=== PATIENT | female | born 1945 | race Caucasian/White ===

== ENCOUNTER → 2019-12-23 15:26 | Outpatient (BNVA) | payer MEDICARE, SELFPAY | PROVIDERS: PCP Nurse Practitioner Family; Referring Provider Nurse Practitioner Family; Visit Provider Hospitalist | DX: J45.40 Moderate persistent asthma, uncomplicated (principal); G47.33 Obstructive sleep apnea (adult) (pediatric); R91.8 Other nonspecific abnormal finding of lung field; Z99.89 Dependence on other enabling machines and devices | CPT/HCPCS: 99214 ==

== ENCOUNTER 2020-03-06 13:05 | Outpatient (REF) | payer MEDICARE, SELFPAY ==
--- NOTE | 2020-03-06 13:09 | CT_ITS ---
EXAMINATION: CT CHEST WITHOUT CONTRAST CLINICAL INFORMATION: Small pulmonary nodules and tree-in-bud appearance. COMPARISON: CT chest 02/25/2019. TECHNIQUE: Multidetector volumetric CT imaging of the chest was done. Axial MIP volume rendering provided. Sagittal and coronal reformatted images were obtained. This CT examination was performed using dose optimization techniques as appropriate, variously including the following: *Automated exposure control *Adjustment of mA and/or kV according to patient size (this includes techniques or standardized protocols for targeted exams where dose is matched to indication/reason for exam; i.e. extremities or head) *Use of iterative reconstruction technique DLP: 158 mGy-cm. FINDINGS: COLOR CORRECTOR: Unremarkable. LUNGS: The lungs are well expanded with patchy reticular interstitial opacity right lung apex with mild focal bronchiectasis, has progressed since the last study. The tree-in-bud appearance has also progressed and now involves the lateral and the anterior segments of the right upper lobe. Previously visualized small nodules in the left upper lobe are intermingled with a band-like large density in the left upper lobe which is also progressed from the previous exam. There are several ill-defined confluent fluffy nodules right lower lobe adjacent to the major fissure measuring 7 mm on image 28/4 focal atelectasis with bronchiectasis and ill-defined nodules seen in the right middle lobe on axial image 30/4. Atelectatic changes also seen in the lingula and anterior basal segment left lower lobe. There is new 5 mm nodule left upper lobe axial image 19/4. MEDIASTINUM: Central trachea and the bronchi widely patent. The heart size and the great vessels are normal caliber. Atherosclerotic calcification of coronary arteries and aortic arch. There are small shotty lymph nodes in the mediastinum. No pericardial effusion seen. PLEURA: There is no pleural effusion. No pleural mass or thickening. AXILLA: No lymphadenopathy. UPPER ABDOMEN: Visualized liver, spleen, gallbladder, bilateral adrenal glands and the kidneys are unremarkable. OSSEOUS STRUCTURES: There is moderate spondylosis no lytic or sclerotic process seen. CT/CT chest wo con IMPRESSION: Interval progression of right upper lobe tree-in-bud appearance and mild bronchiectasis into a larger coalescent band-like density or infiltrate extending to the apex and posterior pleura. Similar findings of progression are seen in the left upper lobe with band-like atelectasis. There are new ill-defined fluffy nodules in the right lower lobe and bronchiectasis with band-like atelectasis and ill-defined nodules in the right middle lobe. There is lingular atelectasis with mild air bronchogram. Overall, there is progression of inflammatory or infectious process. No pleural effusion or abnormal-sized mediastinal or axillary lymph nodes. There are coronary artery calcifications present.
== END 2020-03-06 13:06 | disposition home or self-care (01) ==
LOC: HO.CT 13:05
PROVIDERS: Visit Provider Hospitalist
DX: R91.8 Other nonspecific abnormal finding of lung field (principal)
CPT/HCPCS: 71250

== ENCOUNTER → 2020-03-24 12:57 | Outpatient (BNVA) | payer MEDICARE, SELFPAY | PROVIDERS: Visit Provider Hospitalist | DX: J47.9 Bronchiectasis, uncomplicated (principal); R91.8 Other nonspecific abnormal finding of lung field; J45.40 Moderate persistent asthma, uncomplicated; G47.33 Obstructive sleep apnea (adult) (pediatric); Z99.89 Dependence on other enabling machines and devices | CPT/HCPCS: 99212 ==

== ENCOUNTER 2020-04-26 11:13 | Outpatient (REF) | payer MEDICARE, SELFPAY ==
[2020-04-26 12:11] LABS: MANUAL DIFF FLAG NO
[2020-04-26 12:19] LABS: Basophils Absolute Auto 0.1 X10*3/uL (0.0-0.2); Basophils Percent Auto 0.3 % (0-2); Eosinophils Absolute Auto 0.2 X10*3/uL (0.0-0.4); Eosinophils Percent Auto 1.3 % (0-4); Hematocrit 37.8 % (37-47); Hemoglobin 12.2 g/dl (12.0-16.0); Imm Gran Abs Auto 0.08 X10*3/uL (0.00-0.03); Imm Gran Pct Auto 0.6 % (0.0-0.4); Lymphocytes Absolute Auto 3.6 X10*3/uL (1.2-4.9); Lymphocytes Percent Auto 24.8 % (20-40); Mean Corpuscular HGB Conc 32.3 g/dl (31.0-35.0); Mean Corpuscular Hemoglobin 28.2 pg (27.0-33.0); Mean Corpuscular Volume 87.5 fL (80-98); Monocytes Percent Auto 6.6 % (2-11); Neutrophils Absolute Auto 9.6 X10*3/uL (2.0-8.3); Neutrophils Percent Auto 66.4 % (45-73); Platelet Count 229 X10*3/uL (160-400); Red Blood Count 4.32 X10*6/uL (4.20-5.50); Red Cell Distribution Width 16.2 % (11.0-16.0); White Blood Count 14.5 X10*3/uL (4.8-10.8)
[2020-04-26 13:09] LABS: SARS COV2 IgG Negative (Negative)
[2020-04-26 13:31] LABS: Erythrocyte Sedimentation Rate 34 MM/HR (0-20)
[2020-04-27 13:42] LABS: Anti Nuclear Antibody Screen NEGATIVE (NEGATIVE); IgA 184 mg/dL (70-320); IgG 1397 mg/dL (600-1540); IgM 186 mg/dL (50-300)
[2020-05-01 14:16] LABS: Asperg fumigatus Precip Abs NEGATIVE (NEGATIVE); Micropoly faeni Abs NEGATIVE (NEGATIVE); Pigeon serum Abs NEGATIVE (NEGATIVE); Saccharo pora viridis Abs NEGATIVE (NEGATIVE); Thermo candidus Abs NEGATIVE (NEGATIVE); Thermoa vulgaris #1 NEGATIVE (NEGATIVE)
== END 2020-04-26 11:14 | disposition home or self-care (01) ==
LOC: HO.LAB 11:13
PROVIDERS: Visit Provider Hospitalist
DX: J47.9 Bronchiectasis, uncomplicated (principal); Z20.822 Contact with and (suspected) exposure to COVID-19
CPT/HCPCS: 36415; 82784; 82785; 85025; 85652; 86003; 86038; 86039; 86331; 86606; 86609; 86769

== ENCOUNTER 2020-05-03 07:13 | Day surgery (SDC) | payer MEDICARE, SELFPAY ==
[2020-04-27 13:13] VITALS: BMI 30.2
--- NOTE | 2020-05-01 14:54 | P.CONAN_ITS ---
Documented by User: Rachel Sadler 05/02/20 12:02 HPI - Anesthesia Eval Consult details Narrative: 75yo F for Bronchoscopy Fiberoptic PMFSH Active Problems Active Problems: All Active Problems (Updated 04/27/20 @ 14:45 by Sonja Pierson) Bronchiectasis (Acute) Pulmonary nodules (Acute) Asthma (Acute) SANDRA on CPAP (Acute) Past Medical History Medical History Asthma Back pain Bronchiectasis COVID-19 Diabetes High cholesterol History of anxiety History of depression History of stomach cancer Hx of deep venous thrombosis Hx of gastroesophageal reflux (GERD) Hypertension Hypothyroid Iron deficiency anemia SANDRA on CPAP Osteopenia Pulmonary nodules Family History Family History (Updated 12/23/19 @ 21:54 by Elliot Hammer MD) Father No problems noted. Surgical History Surgical History History of partial gastrectomy History of thyroid surgery Hx of colonoscopy S/P laparoscopic-assisted sigmoidectomy Social History Social History (Updated 12/23/19 @ 15:47 by Gloria Kim MA) Are you a primary childcare center administrator to a significant other at home: No Do you presently have visiting nurse or other home services: No Smoking Status: Former smoker Smoking Quit Date: many years ago Use of substances other than those prescribed or required for medical reasons: No Have you been hit, kicked, punched, or otherwise hurt by someone within the past year? If so, by whom?: No Advance Directives: No Advance Directives Information Provided: No Advance Directives on File: No Recently lost weight without trying: No Meds Allergies Allergy/AdvReac Type Severity Reaction Status Date / Time aspirin Allergy Mild Hives Verified 05/03/20 07:39 oxycodone Allergy Mild Rash GI Verified 05/03/20 07:39 Upset levofloxacin [From Levaquin] Allergy rash, Verified 05/03/20 07:39 malaise, nausea- per H&P sertraline Allergy N/V Verified 05/03/20 07:39 Diarrhea- per H&P Latex Agent Allergy Mild Hives Uncoded 04/27/20 12:58 Sulfa Drugs Allergy Mild Upset Uncoded 04/27/20 12:58 Stomach Home Medications Medication Instructions Recorded Confirmed Last Taken Type acetaminophen 325 mg tablet [id number] mg PO Q4-6H PRN 12/23/19 04/27/20 Unknown History albuterol sulfate 2.5 mg INHALATION Q6H PRN 12/23/19 04/27/20 Unknown History albuterol sulfate 90 mcg/actuation 2 puff INHALATION QID PRN 12/23/19 04/27/20 05/03/20 06:00 History aerosol inhaler amlodipine 10 mg tablet 10 mg PO DAILY 12/23/19 04/27/20 05/03/20 06:00 History blood sugar diagnostic #10 ea 12/23/19 03/24/20 Unknown History brimonidine 0.2 % eye drops 1 drp OPHTHALMIC (EYE) ml 12/23/19 03/24/20 Unknown History cyanocobalamin (vitamin B-12) 500 mcg IM Q4W 12/23/19 04/27/20 Unknown History 1,000 mcg/mL injection solution ferrous sulfate 325 mg (65 mg 325 mg PO BID 12/23/19 04/27/20 Unknown History iron) tablet lancets 28 gauge #100 ea 12/23/19 03/24/20 Unknown History lanolin alcohols-mineral 1 applic TOPICAL BID 12/23/19 04/27/20 Unknown History oil-w.petrolatum-ceresin topical cream latanoprostene bunod 0.024 % eye 1 drp OPHTHALMIC (EYE) DAILY 12/23/19 04/27/20 Unknown History drops levothyroxine 112 mcg tablet 112 mcg PO DAILY 12/23/19 04/27/20 05/03/20 06:00 History lisinopril 40 mg tablet 40 mg PO DAILY 12/23/19 04/27/20 Unknown History meclizine 12.5 mg tablet 12.5 mg PO DAILY 12/23/19 04/27/20 Unknown History melatonin 5 mg tablet 10 mg PO BEDTIME 12/23/19 04/27/20 Unknown History ondansetron 8 mg disintegrating 0 mg PO 12/23/19 03/24/20 Unknown History tablet pantoprazole 40 mg tablet,delayed 40 mg PO BID 12/23/19 04/27/20 Unknown History release quetiapine 100 mg tablet 100 mg PO BEDTIME 12/23/19 04/27/20 Unknown History rosuvastatin 5 mg tablet 5 mg PO DAILY 12/23/19 04/27/20 Unknown History losartan 25 mg tablet 25 mg PO DAILY 03/24/20 04/27/20 05/03/20 06:00 History ascorbic acid (vitamin C) [Vitamin 1 tab PO BID 04/27/20 04/27/20 Unknown History C] calcium carbonate-vitamin D3 1 tab PO DAILY 04/27/20 04/27/20 Unknown History [Calcium 600 + D(3)] Exam Exam Date and Time: May 01, 2020 1454 Height,Weight and Vital Signs: Height 5 ft 2 in Weight 74.843 kg Pertinent Lab Results Pertinent Lab Results: Laboratory Tests 04/26/20 11:55 WBC 14.5 H Hgb 12.2 Hct 37.8 Plt Count 229 Narrative Narrative: CT chest wo con 02/2020 IMPRESSION: Interval progression of right upper lobe tree-in-bud appearance and mild bronchiectasis into a larger coalescent band-like density or infiltrate extending to the apex and posterior pleura. Similar findings of progression are seen in the left upper lobe with band-like atelectasis. There are new ill-defined fluffy nodules in the right lower lobe and bronchiectasis with band-like atelectasis and ill-defined nodules in the right middle lobe. There is lingular atelectasis with mild air bronchogram. Overall, there is progression of inflammatory or infectious process. No pleural effusion or abnormal-sized mediastinal or axillary lymph nodes. There are coronary artery calcifications present. Assessment and Plan Assessment Anesthesia Assessment: Chart Reviewed Documented by User: Jill Cage 05/03/20 08:54 [facility] Past Medical History Medical History Asthma Back pain Bronchiectasis COVID-19 Diabetes High cholesterol History of anxiety History of depression History of stomach cancer Hx of deep venous thrombosis Hx of gastroesophageal reflux (GERD) Hypertension Hypothyroid Iron deficiency anemia SANDRA on CPAP Osteopenia Pulmonary nodules Family History Family History (Updated 12/23/19 @ 21:54 by Elliot Hammer MD) Father No problems noted. Surgical History Surgical History History of partial gastrectomy History of thyroid surgery Hx of colonoscopy S/P laparoscopic-assisted sigmoidectomy Social History Social History (Updated 12/23/19 @ 15:47 by Gloria Kim MA) Are you a primary childcare center administrator to a significant other at home: No Do you presently have visiting nurse or other home services: No Smoking Status: Former smoker Smoking Quit Date: many years ago Use of substances other than those prescribed or required for medical reasons: No Have you been hit, kicked, punched, or otherwise hurt by someone within the past year? If so, by whom?: No Advance Directives: No Advance Directives Information Provided: No Advance Directives on File: No Recently lost weight without trying: No Meds Allergies Allergy/AdvReac Type Severity Reaction Status Date / Time aspirin Allergy Mild Hives Verified 05/03/20 07:39 oxycodone Allergy Mild Rash GI Verified 05/03/20 07:39 Upset levofloxacin [From Levaquin] Allergy rash, Verified 05/03/20 07:39 malaise, nausea- per H&P sertraline Allergy N/V Verified 05/03/20 07:39 Diarrhea- per H&P Latex Agent Allergy Mild Hives Uncoded 04/27/20 12:58 Sulfa Drugs Allergy Mild Upset Uncoded 04/27/20 12:58 Stomach Home Medications Medication Instructions Recorded Confirmed Last Taken Type acetaminophen 325 mg tablet [id number] mg PO Q4-6H PRN 12/23/19 04/27/20 Unknown History albuterol sulfate 2.5 mg INHALATION Q6H PRN 12/23/19 04/27/20 Unknown History albuterol sulfate 90 mcg/actuation 2 puff INHALATION QID PRN 12/23/19 04/27/20 05/03/20 06:00 History aerosol inhaler amlodipine 10 mg tablet 10 mg PO DAILY 12/23/19 04/27/20 05/03/20 06:00 History blood sugar diagnostic #10 ea 12/23/19 03/24/20 Unknown History brimonidine 0.2 % eye drops 1 drp OPHTHALMIC (EYE) ml 12/23/19 03/24/20 Unknown History cyanocobalamin (vitamin B-12) 500 mcg IM Q4W 12/23/19 04/27/20 Unknown History 1,000 mcg/mL injection solution ferrous sulfate 325 mg (65 mg 325 mg PO BID 12/23/19 04/27/20 Unknown History iron) tablet lancets 28 gauge #100 ea 12/23/19 03/24/20 Unknown History lanolin alcohols-mineral 1 applic TOPICAL BID 12/23/19 04/27/20 Unknown History oil-w.petrolatum-ceresin topical cream latanoprostene bunod 0.024 % eye 1 drp OPHTHALMIC (EYE) DAILY 12/23/19 04/27/20 Unknown History drops levothyroxine 112 mcg tablet 112 mcg PO DAILY 12/23/19 04/27/20 05/03/20 06:00 History lisinopril 40 mg tablet 40 mg PO DAILY 12/23/19 04/27/20 Unknown History meclizine 12.5 mg tablet 12.5 mg PO DAILY 12/23/19 04/27/20 Unknown History melatonin 5 mg tablet 10 mg PO BEDTIME 12/23/19 04/27/20 Unknown History ondansetron 8 mg disintegrating 0 mg PO 12/23/19 03/24/20 Unknown History tablet pantoprazole 40 mg tablet,delayed 40 mg PO BID 12/23/19 04/27/20 Unknown History release quetiapine 100 mg tablet 100 mg PO BEDTIME 12/23/19 04/27/20 Unknown History rosuvastatin 5 mg tablet 5 mg PO DAILY 12/23/19 04/27/20 Unknown History losartan 25 mg tablet 25 mg PO DAILY 03/24/20 04/27/20 05/03/20 06:00 History ascorbic acid (vitamin C) [Vitamin 1 tab PO BID 04/27/20 04/27/20 Unknown History C] calcium carbonate-vitamin D3 1 tab PO DAILY 04/27/20 04/27/20 Unknown History [Calcium 600 + D(3)] Exam Airway Mallampati Class: II TM Dist: >3cm Neck ROM: Full Heart: RRR Lungs: CTAcBL Assessment and Plan Assessment Anesthesia Assessment: Anesthesia Plan Discussed and Chart Reviewed Final Anesthetic Review NPO: Yes (Sip water with meds) ASA Class: III Final Preanesthetic Review: No Changes in Pt Med Stat and Consent Obtained/Reviewed Patient Risk: Intermediate Procedure Risk: Intermediate Anesthetic Plan Disposition: Standard PACU
[2020-05-03 07:55] LABS: Glucose, Whole Blood 83 mg/dL (60-115)
[2020-05-03 07:59] VITALS: BP 165/69; PULSE 72; RESP 18; TEMP 36.6; O2SAT 98
[2020-05-03] MEDS: Lactated Ringers 1,000 ML 100 ML IVCONT (08:23)
--- NOTE | 2020-05-03 08:34 | MHC.SHP ---
Pre-Procedural Eval Section A The History & Physical has been completed within 30 days and I have reviewed it.: Yes Section B Chief Complaint: bronchiectasis Relevant Family History (Specify if Yes): No Relevant Social History: None Present Medications: see Short Stay Collaborative assessment Medical History: No relevant PMH History of Previous Operations: No relevant previous surgery Allergies: Allergies Allergy/AdvReac Type Severity Reaction Status Date / Time aspirin Allergy Mild Hives Verified 05/03/20 07:39 oxycodone Allergy Mild Rash GI Verified 05/03/20 07:39 Upset levofloxacin [From Levaquin] Allergy rash, Verified 05/03/20 07:39 malaise, nausea- per H&P sertraline Allergy N/V Verified 05/03/20 07:39 Diarrhea- per H&P Latex Agent Allergy Mild Hives Uncoded 04/27/20 12:58 Sulfa Drugs Allergy Mild Upset Uncoded 04/27/20 12:58 Stomach Review of Systems Sugical H&P ROS: Negative: Constitution, Cardiovascular, Neurological, Psychiatric, Hem-Onc, Allergic/Immunologic, Gastrointestinal, Genitourinary and Musculoskeletal and Yes, Specify: Respiratory (cough) Exam Surgical H&P Exam: Normal: HEENT, Normal: Heart, Normal: Lungs, Normal: Extremities, Normal: Abdomen and Normal: Skin Plan I have reviewed the history and physical and performed a pertinent physical examination on my patient. No changes have occurred unless specified.
[2020-05-03 09:25] VITALS: BP 107/52; PULSE 71; RESP 16; TEMP 36.9; O2SAT 97
--- NOTE | 2020-05-03 09:25 | PM.OP ---
Brief Operative Note Date of Service: 05/03/20 Pre-op diagnosis: Bronchiectasis, pulmonary nodules Post-op diagnosis: same Procedure: Bronchoscopy with brushings and washings Surgeon: Elliot Hammer MD Anesthesia: MAC Estimated blood loss (mL): 2 Condition: stable Disposition: same day
[2020-05-03 09:40] VITALS: BP 161/69; PULSE 68; RESP 20; O2SAT 96
[2020-05-03 09:55] VITALS: BP 147/54; PULSE 66; RESP 20; TEMP 36.9; O2SAT 97
--- NOTE | 2020-05-03 10:23 | OP_ITS ---
SURGEON: Elliot Hammer MD PREOPERATIVE DIAGNOSIS: POSTOPERATIVE DIAGNOSIS: PROCEDURE PERFORMED: ESTIMATED BLOOD LOSS: COMPLICATIONS: ANESTHESIA: MAC. ASSISTANTS: SPECIMENS: ASA CLASSIFICATION: 3. PREOPERATIVE DIAGNOSES: Bronchiectasis and pulmonary nodules. POSTOPERATIVE DIAGNOSES: Bronchiectasis and pulmonary nodules. DESCRIPTION OF PROCEDURE: After the patient was adequately sedated, the flexible digital bronchoscope was inserted over the oral airway to the level of the larynx. The vocal cords moved symmetrically to the midline. There was some evidence of microaspiration. No vocal cord lesions noted. After instilling additional lidocaine, the bronchoscope was navigated to the level of the trachea. 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 The patient was not able to follow instructions or cough, but based on the appearance of the plateauing of the tracheal cartilage rings, suggesting about 25% extrinsic obstruction. After instilling additional lidocaine, the bronchoscope was navigated to the entire tracheobronchial tree. There was evidence of moderate amount of purulent secretions primarily in the central airways, right upper lobe, right middle lobe, primarily to lesser degree in the other airways. There was also some evidence of friable mucosa primarily in the right middle lobe and also in the left upper lobe area. No endobronchial lesions or masses noted. Bronchial brushings were collected from the right upper lobe for microbiology and for cytology from the right middle lobe. Bronchial washings were collected throughout bilateral washings for both cytology and microbiology. After the therapeutic suctioning of the airways and no evidence of any active bleeding, the bronchoscope was then removed. The total endoscopic time approximately 12 minutes. The patient tolerated the procedure well. Vital signs were stable throughout the procedure. INTERPRETATION: Successful bronchoscopy with cytologic and microscopic brushings and bilateral washings. MD LYN Peña/NETTE / [id number]
== END 2020-05-03 10:35 | disposition home or self-care (01) ==
PROVIDERS: Visit Provider Hospitalist
PROC: 0BJ08ZZ Inspection of Tracheobronchial Tree, Via Natural or Artificial Opening Endoscopic (ICD-10-PCS; CPT 31622; principal; 2020-05-03 08:30)
DX: J47.9 Bronchiectasis, uncomplicated (principal); R91.8 Other nonspecific abnormal finding of lung field; J39.8 Other specified diseases of upper respiratory tract; G47.33 Obstructive sleep apnea (adult) (pediatric); J45.909 Unspecified asthma, uncomplicated; I10 Essential (primary) hypertension; E11.9 Type 2 diabetes mellitus without complications; D50.9 Iron deficiency anemia, unspecified; Z85.028 Personal history of other malignant neoplasm of stomach; Z90.3 Acquired absence of stomach [part of]; Z90.49 Acquired absence of other specified parts of digestive tract; Z86.718 Personal history of other venous thrombosis and embolism; Z79.51 Long term (current) use of inhaled steroids; Z79.899 Other long term (current) drug therapy; Z99.89 Dependence on other enabling machines and devices; Z88.2 Allergy status to sulfonamides; Z88.8 Allergy status to other drugs, medicaments and biological substances; Z91.040 Latex allergy status
CPT/HCPCS: 31623; 31645; 82947; 87071; 87077; 87102; 87116; 87186; 87205; 88112; 88305; J0171; J2250

== ENCOUNTER → 2020-05-11 13:18 | Outpatient (BNVA) | payer MEDICARE, SELFPAY | PROVIDERS: PCP Internal Medicine; Visit Provider Hospitalist | DX: J47.0 Bronchiectasis with acute lower respiratory infection (principal); R91.8 Other nonspecific abnormal finding of lung field; J45.40 Moderate persistent asthma, uncomplicated; G47.33 Obstructive sleep apnea (adult) (pediatric); Z99.89 Dependence on other enabling machines and devices; Z87.891 Personal history of nicotine dependence; Z79.51 Long term (current) use of inhaled steroids | CPT/HCPCS: 99212 ==

== ENCOUNTER → 2020-05-17 08:28 | Outpatient (BNVA) | payer MEDICARE, SELFPAY | PROVIDERS: PCP Internal Medicine; Visit Provider Hospitalist | DX: R42 Dizziness and giddiness (principal); J47.0 Bronchiectasis with acute lower respiratory infection; R91.8 Other nonspecific abnormal finding of lung field; J45.40 Moderate persistent asthma, uncomplicated; G47.33 Obstructive sleep apnea (adult) (pediatric); Z99.89 Dependence on other enabling machines and devices | CPT/HCPCS: 99212 ==

== ENCOUNTER → 2020-07-24 13:58 | Outpatient (BNVA) | payer MEDICARE, SELFPAY | PROVIDERS: PCP Internal Medicine; Visit Provider Hospitalist | DX: J47.0 Bronchiectasis with acute lower respiratory infection (principal); R91.8 Other nonspecific abnormal finding of lung field; J45.40 Moderate persistent asthma, uncomplicated; G47.33 Obstructive sleep apnea (adult) (pediatric); Z99.89 Dependence on other enabling machines and devices | CPT/HCPCS: 99212 ==

== ENCOUNTER → 2020-11-21 14:00 | Outpatient (BNVA) | payer MEDICARE, SELFPAY | PROVIDERS: PCP Internal Medicine; Visit Provider Hospitalist | DX: J47.0 Bronchiectasis with acute lower respiratory infection (principal); J45.40 Moderate persistent asthma, uncomplicated; R91.8 Other nonspecific abnormal finding of lung field; G47.33 Obstructive sleep apnea (adult) (pediatric); Z99.89 Dependence on other enabling machines and devices | CPT/HCPCS: 99212 ==

== ENCOUNTER 2021-01-30 13:31 | Outpatient (REF) | payer MEDICARE, SELFPAY ==
--- NOTE | ~2021-01-30 | CT_ITS ---
EXAMINATION: CT CHEST WITHOUT CONTRAST CLINICAL INFORMATION: Pulmonary nodule COMPARISON: 02/27/2020 and 02/25/2019 TECHNIQUE: Multidetector volumetric CT imaging of the chest was done. Axial MIP volume rendering provided. Sagittal and coronal reformatted images were obtained. This CT examination was performed using dose optimization techniques as appropriate, variously including the following: *Automated exposure control *Adjustment of mA and/or kV according to patient size (this includes techniques or standardized protocols for targeted exams where dose is matched to indication/reason for exam; i.e. extremities or head) *Use of iterative reconstruction technique DLP: 153 mGy-cm FINDINGS: LUNGS: Again seen are bronchiectatic changes within the middle lobe and lingula with scattered endobronchial secretions and accompanying subsegmental atelectasis. Again seen are scattered endobronchial secretions within the right upper lobe and right middle lobe appearing similar to the prior examination, with tree in bud nodularity evident within the lateral segment of the middle lobe. Slightly improved aeration within the anteromedial aspect of the middle lobe with new patchy opacity within the lateral segment of the middle lobe. A previous patchy opacity within lateral segment of the right lower lobe has resolved, however there is a new bronchocentric opacity within the central region of the right lower lobe. MEDIASTINUM: Normal heart size. No pericardial effusion. Triple vessel coronary calcifications. Mitral annular calcifications. No mediastinal or hilar adenopathy. PLEURA: There is no pleural effusion. No pleural mass or thickening. AXILLA: No lymphadenopathy. UPPER ABDOMEN: Unremarkable. OSSEOUS STRUCTURES: No acute or suspicious osseous abnormality. CT/CT chest wo con IMPRESSION: Again seen are chronic bronchiectatic changes and endobronchial secretions predominating within the middle lobe and lingula, with tree in bud nodularity present laterally within the middle lobe. There are associated waxing and waning patchy airspace opacities within the middle lobe and right lower lobe reflective of a chronic airway-based infectious process, such as nontuberculous mycobacterium. Overall, the extent of disease shows no significant interval progression since the prior exam.
== END 2021-01-30 13:32 | disposition home or self-care (01) ==
LOC: HO.CT 13:31
PROVIDERS: Visit Provider Hospitalist
DX: R91.8 Other nonspecific abnormal finding of lung field (principal); J47.9 Bronchiectasis, uncomplicated
CPT/HCPCS: 71250

== ENCOUNTER → 2021-02-22 13:46 | Outpatient (BNVA) | payer MEDICARE, SELFPAY | PROVIDERS: PCP Internal Medicine; Visit Provider Hospitalist | DX: J47.0 Bronchiectasis with acute lower respiratory infection (principal); R91.8 Other nonspecific abnormal finding of lung field; J45.40 Moderate persistent asthma, uncomplicated; G47.33 Obstructive sleep apnea (adult) (pediatric); Z99.89 Dependence on other enabling machines and devices | CPT/HCPCS: 99212 ==

== ENCOUNTER → 2021-05-17 13:41 | Outpatient (BNVA) | payer MEDICARE, SELFPAY | PROVIDERS: PCP Internal Medicine; Visit Provider Hospitalist | DX: J45.40 Moderate persistent asthma, uncomplicated (principal); R91.8 Other nonspecific abnormal finding of lung field; J47.0 Bronchiectasis with acute lower respiratory infection; G47.33 Obstructive sleep apnea (adult) (pediatric); Z99.89 Dependence on other enabling machines and devices | CPT/HCPCS: 99212 ==

== ENCOUNTER → 2021-08-16 13:41 | Outpatient (BNVA) | payer MEDICARE, SELFPAY | PROVIDERS: PCP Internal Medicine; Visit Provider Hospitalist | DX: J47.0 Bronchiectasis with acute lower respiratory infection (principal); R91.8 Other nonspecific abnormal finding of lung field; J45.40 Moderate persistent asthma, uncomplicated; G47.33 Obstructive sleep apnea (adult) (pediatric); Z79.899 Other long term (current) drug therapy; Z99.89 Dependence on other enabling machines and devices | CPT/HCPCS: 99212 ==

== ENCOUNTER → 2022-02-07 13:47 | Outpatient (BNVA) | payer OTHER, SELFPAY | PROVIDERS: PCP Internal Medicine; Visit Provider Hospitalist | DX: J45.40 Moderate persistent asthma, uncomplicated (principal); G47.33 Obstructive sleep apnea (adult) (pediatric); R91.8 Other nonspecific abnormal finding of lung field; J47.1 Bronchiectasis with (acute) exacerbation; Z99.89 Dependence on other enabling machines and devices | CPT/HCPCS: 99212 ==

== ENCOUNTER → 2022-05-14 13:23 | Outpatient (BNVA) | payer OTHER, SELFPAY | PROVIDERS: PCP Nurse Practitioner Family; Visit Provider Hospitalist | DX: J47.1 Bronchiectasis with (acute) exacerbation (principal); J45.40 Moderate persistent asthma, uncomplicated; R91.8 Other nonspecific abnormal finding of lung field; R00.1 Bradycardia, unspecified; G47.33 Obstructive sleep apnea (adult) (pediatric); Z99.89 Dependence on other enabling machines and devices | CPT/HCPCS: 99212 ==

== ENCOUNTER 2022-10-21 13:21 | Outpatient (AMB) | payer OTHER, SELFPAY ==
--- NOTE | 2022-10-21 13:25 | A.OFFVIS_ITS ---
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 Allergies aspirin Allergy (Mild, Verified 10/21/22 13:25) Hives oxycodone Allergy (Mild, Verified 10/21/22 13:25) Rash GI Upset levofloxacin [From Levaquin] Allergy (Verified 10/21/22 13:25) rash, malaise, nausea- per H&P sertraline Allergy (Verified 10/21/22 13:25) N/V Diarrhea- per H&P Latex Agent Allergy (Mild, Uncoded 10/21/22 13:25) Hives Sulfa Drugs Allergy (Mild, Uncoded 10/21/22 13:25) Upset Stomach HPI HPI Comments History of Present Illness Details The patient is a 77-year-old woman with a known history of pulmonary nodules, obstructive sleep apnea on CPAP in addition to having bariatric surgery. apparently since I saw her she did develop covid 19 infection and was admitted to [facility] initially back in July 21. she was then readmitted back on August 09 with again a positive covid tennis and significant GI symptoms. She did not require any oxygen. We did review her previous CT scan of the chest done here back in February 2019 demonstrating numerous pulmonary nodules along with some bronchiectatic changes in some areas of atelectasis. She continues to have a cough in addition to some shortness of breath. [id number] severity. No significant mucus production. At this point she needs to have a repeat CT scan of the chest. Will have her get 1 in 3 months with her follow-up. In regards to her CPAP the CPAP therapy continues to be Effective in beneficial. She does use her CPAP more than 4 hours a night. He uses a nasal mask. She does complaint of a dry mouth. We did prescribe her a chinstrap during the last visit but she did not know how to use it. Therefore she was instructed how to use it. She has some known bronchiectasis and her previous CT scan. We did talk about potentially consider bronchoscopy. She would like to hold off at this time. Will have blood work done to further address the bronchiectasis. In the meantime she continues use her CPAP. The CPAP therapy continues to be affecting beneficial. She does use it more than 4 hours a night. She still getting dryness of the mouth. Will try to request axis to rest med to try to adjust humidification. 05/17/2021 the patient is here for a pulmonary follow-up visit. Overall she is feeling better at this time. Apparently back in March she became sick likely with viral syndrome and developed significant wheezing. She did call our office and she was prescribed prednisone. However, her symptoms worsened and she had to go to the ER. She went to [facility]. There it was recommended that she be admitted to the hospital. However, the patient is reluctant. After her prolonged nebulized therapy and overall therapies in the year she did feel better was able to go home. Also to know her family tested positive for COVID around the same time. She tested a few times negative. Now she is back to her baseline. She continues on the Breo. She has a history of glaucoma, therefore no LAMA. She also has a nebulizer machine. She has not required at this time. In the meantime she continues use her CPAP. She did bring it in. her AHI is only 0.5. Her current APAP settings are adequate 08/09/2013. Therefore will continue the current settings. She does have a nasal mask and she tolerates it well. No significant leakage. The patient does have bronchiectasis. She has had a history of Pseudomonas in the past. She does have a flutter valve. At this point she does not have any mucus burden. She she still continue using the flutter valve couple times a day. 08/16/2021 the patient is here for a pulmonary follow-up visit. Overall the patient has been doing well with current respiratory therapy. She has not required any prednisone or even her rescue inhaler. She stays stable on her current inhaler, Breo and also does have her rescue inhaler that she has not required. She continues on the CPAP therapy. The therapy has been affecting beneficial. By mistake she did receive the wrong mask, F20 medium. However when she started using it she felt a lot better and therefore she prefers the full face mask at this time. I will submit a prescription to the [facility] with the new mask. She is also going to handle over her recent supplies for the nasal mask in order for her to continue doing right equipment. We also reviewed her most recent CT scan from January 2021 demonstrating bronchiectatic changes with tree-in-bud and some mucus plugging. Although no evidence of any significant nodular densities to follow-up. At this point will hold off on additional imaging studies unless she develops any worsening symptoms. 02/07/2022 the patient is here for a pulmonary follow-up visit. She has been complaining worsening productive cough and shortness of breath. He is not letting her sleep. Moderate severity. She tolerated going to the ER. But she that possibly she could wait to this appointment. Denies any fevers or chills. She already tested negative for COVID-19. She continues use her respiratory therapy. She has not been using her nebulizer. I did encourage her to do so in order to provide better mucus clearance. Her mucus she was able to cough up appears to be thick but not discolored at this time. Son likely to be Pseudomonas which she has had in the past. Although she is allergic to Levaquin anyway. Go ahead and treated for bronchiectasis exacerbation with azithromycin. She does have some wheezing so therefore she will need some prednisone as well. in the meantime she does continue to use her CPAP every night. Given that she is coughing the CPAP does give her some relief. She does use it for more than 4 hours a night. She has been getting supplies readily through her [facility]. 05/14/2022 the patient is here for a pulmonary follow-up visit. The patient overall is feeling better from a respiratory status. However, she went to the ER with elevated blood pressures. The patient was noted to have some cardiac strain. This was at [facility]. She was then placed on metoprolol. Seems that she is tolerating the metoprolol with her history of asthma. However in the office she was noted to have a low heart rate which was resting at 50 beats per minute. She states that she had been feeling dizzy lately. Yesterday she had checked her blood pressure and was 107/50. Therefore, I emphasized to her that she needs to call her professor of surgery regarding her current dose of metoprolol as the dose may have to be decreased to some degree. I also walker briefly in the office to make sure the heart rate did increase and it went from 50 beats per minute to about 59 the high as with activity. The patient was not dizzy during that ambulation. I did ask her to lock down all her vitals as she checks them especially if she is symptomatic so she has all those numbers for primary care and also her professor of surgery. Her she continues use the Breo inhaler. She is not using any long-acting muscarinic antagonist because of a history of glaucoma. She continues uses singular at nighttime. This medication she will continue. 10/21/2022 the patient is here for pulmonary follow-up visit. She is feeling well. Still having significant chest congestion and chest tightness. She did take some prednisone with some partial improvement. Denies any fevers or chills. She had some azithromycin available and she did take it and her cough did improve and the mucus burden is less. The patient's mucus now is clearing up. She does have a history of Pseudomonas however. I did give her specimen cup. She will go back on the azithromycin 3 times a week. She her EKG that she just had demonstrated a normal QT interval which is reassuring. If the patient has some sputum or chest congestion worsens that she is to provide a sputum sample. The patient should also have a chest x-ray done since she has not had 1 in some time. She will continue with current respiratory therapy. The meantime the patient has been using the CPAP. The CPAP therapy has been affecting beneficial. She does use it for more than 4 hours a night. She has been having some sinus pressure and headaches while using the nasal mask. I did recommend she can switch over to a fullface mask, F 20. [facility] Medical History (Updated 05/14/22 @ 19:34 by Elliot Hammer MD) Asthma Back pain Bradycardia Bronchiectasis COVID-19 Diabetes Dizziness Glaucoma High cholesterol History of anxiety History of depression History of stomach cancer Hx of deep venous thrombosis Hx of gastroesophageal reflux (GERD) Hypertension Hypothyroid Iron deficiency anemia SANDRA on CPAP Osteopenia Pulmonary nodules Surgical History History of partial gastrectomy History of thyroid surgery Hx of colonoscopy S/P laparoscopic-assisted sigmoidectomy Family History (Updated 12/23/19 @ 21:54 by Elliot Hammer MD) Father No problems noted. Social History (Updated 11/21/20 @ 14:14 by ADRIEL Watson) Are you a primary ocular care aide to a significant other at home: No Do you presently have visiting nurse or other home services: No Patient Tobacco Use Status: Former Tobacco user Tobacco use type: Cigarette Years Smoked: 15 years Review of Systems Const Reports fatigue, Denies fever(s) and Denies night sweats ENT Denies change in voice, Reports dizziness, Denies lip swelling, Denies mouth pain, Reports nasal congestion, Reports nasal discharge, Reports sore throat and Denies tongue swelling Card Denies chest pain Resp Reports change in phlegm color, Reports chest congestion, Reports cough, Denies hemoptysis, Denies excessive phlegm production, Denies pain on inspiration, Denies pain with cough and Reports wheezing GI Denies abdominal pain Musc Denies no additional complaints Neuro Denies Neuro-related abnormal movements and Reports dizziness Psych Denies no additional complaints Endo Reports fatigue Harmeet/Lymph Denies easy bleeding and Denies lymphadenopathy Aller/Immun Denies lip swelling, Denies tongue swelling and Reports wheezing Physical Exam Vital Signs: Last Vital Signs Pulse 53 10/21/22 13:27 Pulse Ox 99 10/21/22 13:27 Oxygen Delivery Method Room Air 10/21/22 13:27 BMI result Body Mass Index 32.2 Const General: alert Neck Neck: Yes normal visual inspection, Yes full ROM and Yes no lymphadenopathy Chest Chest palpation & inspection: normal inspection of the chest Resp Auscultation: no rhonchi, no wheezes and diminished lung sounds Cardio Rate: regular rate Rhythm: regular rhythm Heart sounds: Murmur heart sound present GI Palpation (GI): Soft to palpation and nontender Auscultation: normal bowel sounds Skin General skin exam: rashes and/or lesions noted Assessment & Plan Assessment & Plan (1) Bronchiectasis: Code(s): J47.9 - Bronchiectasis, uncomplicated Qualifiers: Bronchiectasis type: with acute exacerbation Qualified Code(s): J47.1 - Bronchiectasis with (acute) exacerbation (2) Pulmonary nodules: Code(s): R91.8 - Other nonspecific abnormal finding of lung field (3) Asthma: Code(s): J45.909 - Unspecified asthma, uncomplicated Qualifiers: Asthma complication type: uncomplicated Asthma persistence: persistent Asthma severity: moderate Qualified Code(s): J45.40 - Moderate persistent asthma, uncomplicated (4) ASNDRA on CPAP: Code(s): G47.33 - Obstructive sleep apnea (adult) (pediatric); Z99.89 - Dependence on other enabling machines and devices (5) Bradycardia: Code(s): R00.1 - Bradycardia, unspecified Plan Continue APAP, adjusted pressures 6-14, F20 med mask Continue CPT with nebulized therapy and Acapella valve. Consider percussion vest if worsens Continue Breo 200, short-acting beta agonist as needed restart azithromycin 3 times a week, EKG ok CXR sputum cx if no better Continue Singulair Follow-up in 3 months Orders: Orders Sputum Cult + Gram stain Today J47.9 - Bronchiectasis, uncomplicated XR chest 2V Today J47.9 - Bronchiectasis, uncomplicated ECG 12 lead EKG Today J44.9 - Chronic obstructive pulmonary disease, unspecified, J47.9 - Bronchiectasis, uncomplicated Medications: New codeine-guaifenesin 10-100 mg/5 mL 10 mL PO Q6H 10 days PRN 300 mL 0RF cough budesonide 0.5 mg (2 mL) inhalation BID 30 days 120 mL 11RF J44.9 - Chronic obstructive pulmonary disease, unspecified prednisone PO daily; Take 6 tabs daily x 3 days, then 5 tabs x 3 days, then 4 tabs x 3 days, then 3 tabs x 3 days, then 2 tabs daily x 3 days, then 1 tab x 3 days to complete. 18 days 63 tabs 0RF azithromycin Take 1 tablet on Friday/Friday/Friday 250 mg PO 3XW 28 days 12 tabs 6RF K21.9 - Gastro-esophageal reflux disease without esophagitis Coding Level of Care Code Est Pt Level 4 (60366) Diagnoses Bronchiectasis J47.1 Bronchiectasis type: with acute exacerbation Pulmonary nodules R91.8 Asthma J45.40 Asthma complication type: uncomplicated Asthma persistence: persistent Asthma severity: moderate SANDRA on CPAP G47.33; Z99.89 Bradycardia R00.1 Time Spent (min) 19
[2022-10-21 13:27] VITALS: PULSE 53; O2SAT 99; BMI 32.2
== END 2022-10-21 13:45 | disposition home or self-care (01) ==
PROVIDERS: PCP Nurse Practitioner Family; Visit Provider Hospitalist
DX: J47.1 Bronchiectasis with (acute) exacerbation (principal); R91.8 Other nonspecific abnormal finding of lung field; J45.40 Moderate persistent asthma, uncomplicated; G47.33 Obstructive sleep apnea (adult) (pediatric); Z99.89 Dependence on other enabling machines and devices; R00.1 Bradycardia, unspecified
CPT/HCPCS: 99214

== ENCOUNTER 2022-10-21 13:21 | Outpatient (REF) | payer OTHER, SELFPAY ==
--- NOTE | ~2022-10-21 | XR_ITS ---
EXAMINATION: XR CHEST CLINICAL INFORMATION: Bronchiectasis. COMPARISON: CT chest dated 01/30/2021. TECHNIQUE: Frontal and lateral views of the chest were obtained. FINDINGS: The heart, great vessels, pulmonary vasculature and mediastinum are normal. The lungs show no focal infiltrate, effusion or pneumothorax. There is biapical pleural thickening. There is stable scar/subsegmental atelectasis at the right apex. Stable vertical scar/subsegmental atelectasis is seen medially within the left lower lobe. There is mild elevation of the right hemidiaphragm. There is no acute osseous abnormality. Cervical surgical clips are seen consistent with a prior thyroidectomy. XR/XR chest 2V IMPRESSION: 1. No focal infiltrate or congestive heart failure is seen. 2. There is persistent linear scar/subsegmental atelectasis within the retrocardiac region and at the right apex.
--- NOTE | 2022-10-21 13:55 | ECG_ITS ---
Test Reason : COPD Blood Pressure : / mmHG Vent. Rate : 055 BPM Atrial Rate : 055 BPM P-R Int : 182 ms QRS Dur : 078 ms QT Int : 438 ms P-R-T Axes : 054 -01 025 degrees QTc Int : 419 ms Sinus bradycardia Otherwise normal ECG No previous ECGs available Referred By: Elliot Hammer Electronically Signed By:SILVIANO AMES MD
== END 2022-10-21 13:22 | disposition home or self-care (01) ==
LOC: HO.XRAY 13:21
PROVIDERS: Visit Provider Hospitalist
DX: R91.8 Other nonspecific abnormal finding of lung field (principal); J47.1 Bronchiectasis with (acute) exacerbation; J45.40 Moderate persistent asthma, uncomplicated; G47.33 Obstructive sleep apnea (adult) (pediatric); E00.1 Congenital iodine-deficiency syndrome, myxedematous type; Z99.89 Dependence on other enabling machines and devices
CPT/HCPCS: 71046; 93005; 99212

== ENCOUNTER → 2022-10-21 13:55 | Outpatient (BNV) | payer OTHER, SELFPAY | PROVIDERS: Visit Provider Internal Medicine Cardiovascular Disease | DX: J44.9 Chronic obstructive pulmonary disease, unspecified (principal) | CPT/HCPCS: 93010 ==

== ENCOUNTER → 2022-11-09 23:59 | Outpatient (BNV) | payer OTHER, SELFPAY | PROVIDERS: Visit Provider Internal Medicine Cardiovascular Disease | DX: I21.21 ST elevation (STEMI) myocardial infarction involving left circumflex coronary artery (principal) | CPT/HCPCS: 92941; 93458; 99152 ==

== ENCOUNTER 2022-12-23 12:56 | Outpatient (AMB) | payer OTHER, SELFPAY ==
--- NOTE | 2022-12-23 12:56 | A.OFFVIS_ITS ---
Intake Vital Signs 12/23/22 12:57 Height 5 ft 1 in Weight 173 lb BMI 32.7 Intake Visit Reasons: [facility] Required: No Allergies aspirin Allergy (Mild, Verified 12/23/22 12:57) Hives oxycodone Allergy (Mild, Verified 12/23/22 12:57) Rash GI Upset levofloxacin [From Levaquin] Allergy (Verified 12/23/22 12:57) rash, malaise, nausea- per H&P sertraline Allergy (Verified 12/23/22 12:57) N/V Diarrhea- per H&P Latex Agent Allergy (Mild, Uncoded 12/23/22 12:57) Hives Sulfa Drugs Allergy (Mild, Uncoded 12/23/22 12:57) Upset Stomach HPI HPI Comments History of Present Illness Details The patient is a 77-year-old woman with a known history of pulmonary nodules, obstructive sleep apnea on CPAP in addition to having bariatric surgery. apparently since I saw her she did develop covid 19 infection and was admitted to [facility] initially back in July 21. she was then readmitted back on August 09 with again a positive covid tennis and significant GI symptoms. She did not require any oxygen. We did review her previous CT scan of the chest done here back in February 2019 demonstrating numerous pulmonary nodules along with some bronchiectatic changes in some areas of atelectasis. She continues to have a cough in addition to some shortness of breath. [id number] severity. No significant mucus production. At this point she needs to have a repeat CT scan of the chest. Will have her get 1 in 3 months with her follow-up. In regards to her CPAP the CPAP therapy continues to be Effective in beneficial. She does use her CPAP more than 4 hours a night. He uses a nasal mask. She does complaint of a dry mouth. We did prescribe her a chinstrap during the last visit but she did not know how to use it. Therefore she was instructed how to use it. She has some known bronchiectasis and her previous CT scan. We did talk about potentially consider bronchoscopy. She would like to hold off at this time. Will have blood work done to further address the bronchiectasis. In the meantime she continues use her CPAP. The CPAP therapy continues to be affecting beneficial. She does use it more than 4 hours a night. She still getting dryness of the mouth. Will try to request axis to rest med to try to adjust humidification. 05/17/2021 the patient is here for a pulmonary follow-up visit. Overall she is feeling better at this time. Apparently back in March she became sick likely with viral syndrome and developed significant wheezing. She did call our office and she was prescribed prednisone. However, her symptoms worsened and she had to go to the ER. She went to [facility]. There it was recommended that she be admitted to the hospital. However, the patient is reluctant. After her prolonged nebulized therapy and overall therapies in the year she did feel better was able to go home. Also to know her family tested positive for COVID around the same time. She tested a few times negative. Now she is back to her baseline. She continues on the Breo. She has a history of glaucoma, therefore no LAMA. She also has a nebulizer machine. She has not required at this time. In the meantime she continues use her CPAP. She did bring it in. her AHI is only 0.5. Her current APAP settings are adequate 08/09/2013. Therefore will continue the current settings. She does have a nasal mask and she tolerates it well. No significant leakage. The patient does have bronchiectasis. She has had a history of Pseudomonas in the past. She does have a flutter valve. At this point she does not have any mucus burden. She she still continue using the flutter valve couple times a day. 08/16/2021 the patient is here for a pulmonary follow-up visit. Overall the patient has been doing well with current respiratory therapy. She has not required any prednisone or even her rescue inhaler. She stays stable on her current inhaler, Breo and also does have her rescue inhaler that she has not required. She continues on the CPAP therapy. The therapy has been affecting beneficial. By mistake she did receive the wrong mask, F20 medium. However when she started using it she felt a lot better and therefore she prefers the full face mask at this time. I will submit a prescription to the [employer] with the new mask. She is also going to handle over her recent supplies for the nasal mask in order for her to continue doing right equipment. We also reviewed her most recent CT scan from January 2021 demonstrating bronchiectatic changes with tree-in-bud and some mucus plugging. Although no evidence of any significant nodular densities to follow-up. At this point will hold off on additional imaging studies unless she develops any worsening symptoms. 02/07/2022 the patient is here for a pulmonary follow-up visit. She has been complaining worsening productive cough and shortness of breath. He is not letting her sleep. Moderate severity. She tolerated going to the ER. But she that possibly she could wait to this appointment. Denies any fevers or chills. She already tested negative for COVID-19. She continues use her respiratory therapy. She has not been using her nebulizer. I did encourage her to do so in order to provide better mucus clearance. Her mucus she was able to cough up appears to be thick but not discolored at this time. Son likely to be Pseudomonas which she has had in the past. Although she is allergic to Levaquin anyway. Go ahead and treated for bronchiectasis exacerbation with azithromycin. She does have some wheezing so therefore she will need some prednisone as well. in the meantime she does continue to use her CPAP every night. Given that she is coughing the CPAP does give her some relief. She does use it for more than 4 hours a night. She has been getting supplies readily through her [employer]. 05/14/2022 the patient is here for a pulmo nary follow-up visit. The patient overall is feeling better from a respiratory status. However, she went to the ER with elevated blood pressures. The patient was noted to have some cardiac strain. This was at [facility]. She was then placed on metoprolol. Seems that she is tolerating the metoprolol with her history of asthma. However in the office she was noted to have a low heart rate which was resting at 50 beats per minute. She states that she had been feeling dizzy lately. Yesterday she had checked her blood pressure and was 107/50. Therefore, I emphasized to her that she needs to call her rug sizer regarding her current dose of metoprolol as the dose may have to be decreased to some degree. I also walker briefly in the office to make sure the heart rate did increase and it went from 50 beats per minute to about 59 the high as with activity. The patient was not dizzy during that ambulation. I did ask her to lock down all her vitals as she checks them especially if she is symptomatic so she has all those numbers for primary care and also her rug sizer. Her she continues use the Breo inhaler. She is not using any long-acting muscarinic antagonist because of a history of glaucoma. She continues uses singular at nighttime. This medication she will continue. 10/21/2022 the patient is here for pulmonary follow-up visit. She is feeling well. Still having significant chest congestion and chest tightness. She did take some prednisone with some partial improvement. Denies any fevers or chills. She had some azithromycin available and she did take it and her cough did improve and the mucus burden is less. The patient's mucus now is clearing up. She does have a history of Pseudomonas however. I did give her specimen cup. She will go back on the azithromycin 3 times a week. She her EKG that she just had demonstrated a normal QT interval which is reassuring. If the patient has some sputum or chest congestion worsens that she is to provide a sputum sample. The patient should also have a chest x-ray done since she has not had 1 in some time. She will continue with current respiratory therapy. The meantime the patient has been using the CPAP. The CPAP therapy has been affecting beneficial. She does use it for more than 4 hours a night. She has been having some sinus pressure and headaches while using the nasal mask. I did recommend she can switch over to a fullface mask, F 20. 12/23/2022 the [facility] is [facility]. since we last spoke the patient did end up having substernal chest discomfort and was transferred over to [facility] where she was diagnosed with a non ST elevation CT. the patient underwent PCI with stent placement. Subsequently after that the patient did have further evaluation with Cardiology. She apparently has a 70% blockage another artery. She is going to likely have a stress test and then find out if she needs additional stent placements. From a respiratory status the patient is starting to have worsening cough. She has been exposed to family members COVID- 19 although she has not had any fevers or chills and has not tested herself as of yet. I did encourage her to do so. In the meantime she does not want to use prednisone because she was told not to use prednisone while dealing with a cardiac issue. The patient does have a cough which tends to be nonproductive in nature. She also complains of sinus congestion. The patient will go ahead and start her nebulizer treatments with budesonide to avoid prednisone. In addition to that will restart the azithromycin. I did look at her EKG and QT intervals were within normal limits in November. if the patient is no better she will call the office for further evaluation management. [facility] Medical History (Updated 12/23/22 @ 20:12 by Elliot Hammer MD) CAD (coronary artery disease) Bradycardia Glaucoma Dizziness Osteopenia Hx of deep venous thrombosis Back pain Hypothyroid Diabetes Iron deficiency anemia Hx of gastroesophageal reflux (GERD) History of stomach cancer History of anxiety History of depression High cholesterol Hypertension Bronchiectasis COVID-19 Pulmonary nodules Asthma SANDRA on CPAP Surgical History History of thyroid surgery S/P laparoscopic-assisted sigmoidectomy History of partial gastrectomy Hx of colonoscopy Family History (Updated 12/23/19 @ 21:54 by Elliot Hammer MD) Father No problems noted. Social History (Updated 11/21/20 @ 14:14 by ADRIEL Watson) Are you a primary manager urgent care to a significant other at home: No Do you presently have visiting nurse or other home services: No Patient Tobacco Use Status: Former Tobacco user Tobacco use type: Cigarette Years Smoked: 15 years Review of Systems Const Reports fatigue, Denies fever(s) and Denies night sweats ENT Denies change in voice, Reports dizziness, Denies lip swelling, Denies mouth pain, Reports nasal congestion, Reports nasal discharge, Reports sore throat and Denies tongue swelling Card Denies chest pain Resp Denies chest congestion, Reports cough, Denies hemoptysis, Denies excessive phlegm production, Denies pain on inspiration, Denies pain with cough and Reports wheezing GI Denies abdominal pain Musc Denies no additional complaints Neuro Denies Neuro-related abnormal movements and Reports dizziness Psych Denies no additional complaints Endo Reports fatigue Harmeet/Lymph Denies easy bleeding and Denies lymphadenopathy Aller/Immun Denies lip swelling, Denies tongue swelling and Reports wheezing Physical Exam Vital Signs: BMI result Body Mass Index 32.7 Const General: comfortable Orientation/consciousness: patient oriented x3 Resp Effort & Inspection: able to speak in complete sentences GI Auscultation: normal bowel sounds Neuro General: patient oriented x3 Assessment & Plan Assessment & Plan (1) Bronchiectasis: Code(s): J47.9 - Bronchiectasis, uncomplicated Qualifiers: Bronchiectasis type: with acute exacerbation Qualified Code(s): J47.1 - Bronchiectasis with (acute) exacerbation (2) Pulmonary nodules: Code(s): R91.8 - Other nonspecific abnormal finding of lung field (3) Asthma: Code(s): J45.909 - Unspecified asthma, uncomplicated Qualifiers: Asthma complication type: uncomplicated Asthma persistence: persistent Asthma severity: moderate Qualified Code(s): J45.40 - Moderate persistent asthma, uncomplicated (4) SANDRA on CPAP: Code(s): G47.33 - Obstructive sleep apnea (adult) (pediatric); Z99.89 - Dependence on other enabling machines and devices (5) CAD (coronary artery disease): Code(s): I25.10 - Atherosclerotic heart disease of alutiiq coronary artery without angina pectoris Qualifiers: Coronary Disease-Associated Artery/Lesion type: alutiiq artery [place] vs. transplanted heart: alutiiq heart Associated angina: without angina Quali fied Code(s): I25.10 - Atherosclerotic heart disease of alutiiq coronary artery without angina pectoris Plan Continue APAP, adjusted pressures 6-14, F20 med mask Continue CPT with nebulized therapy and Acapella valve. Consider percussion vest if worsens Continue Breo 200, restart budesonide BID short-acting beta agonist as needed restart azithromycin 3 times a week, EKG ok 11/2022 CXR holding prednisone for now Continue Singulair Follow-up in 2-3 months Telehealth Telehealth Location of provider rendering services: practice address Location of patient: address on file Patient Identification confirmed using: Name, : Yes Telehealth method: voice only Patient verbally consented to treatment: Yes Patient verbally consented to billing insurance company: Yes Patient informed of any privacy concerns related to visit: Yes Coding Level of Care Code Tele Est Pt Level 4 (12244) Diagnoses Bronchiectasis with acute exacerbation J47.1 Bronchiectasis type: with acute exacerbation Pulmonary nodules R91.8 Moderate persistent asthma without complication J45.40 Asthma complication type: uncomplicated Asthma persistence: persistent Asthma severity: moderate SANDRA on CPAP G47.33; Z99.89 Coronary artery disease involving alutiiq coronary artery of alutiiq heart without angina pectoris I25.10 Coronary Disease-Associated Artery/Lesion type: alutiiq artery [place] vs. transplanted heart: alutiiq heart Associated angina: without angina Time Spent (min) 15
[2022-12-23 12:57] VITALS: BMI 32.7
== END 2022-12-23 13:30 | disposition home or self-care (01) ==
LOC: HO.HPS 12:56
PROVIDERS: PCP Nurse Practitioner Family; Visit Provider Hospitalist
DX: J45.40 Moderate persistent asthma, uncomplicated (principal); R91.8 Other nonspecific abnormal finding of lung field; G47.33 Obstructive sleep apnea (adult) (pediatric); Z99.89 Dependence on other enabling machines and devices; I25.10 Atherosclerotic heart disease of native coronary artery without angina pectoris
CPT/HCPCS: 99442

== ENCOUNTER → 2022-12-23 12:56 | Outpatient (BNVA) | payer OTHER, SELFPAY | PROVIDERS: PCP Nurse Practitioner Family; Visit Provider Hospitalist | DX: R91.8 Other nonspecific abnormal finding of lung field (principal); J47.9 Bronchiectasis, uncomplicated; J44.9 Chronic obstructive pulmonary disease, unspecified; K21.9 Gastro-esophageal reflux disease without esophagitis ==

== ENCOUNTER 2023-03-11 13:11 | Outpatient (AMB) | payer OTHER, SELFPAY ==
--- NOTE | 2023-03-11 13:15 | MHC.OFFVIS ---
Intake Vital Signs 03/11/23 13:16 Height 5 ft 1 in Weight 178 lb BMI 33.6 BP 130/70 Pulse 78 Pulse Source Pulse Oximeter Pulse Oximetry (%) 97 Oxygen Delivery Method Room Air Intake Visit Reasons: Wheezing Quality Improvement Engineer Required: No Trauma Counsellor: Trauma Counsellor offered & declined Accompanied by: Daughter Allergies aspirin Allergy (Mild, Verified 03/11/23 13:21) Hives oxycodone Allergy (Mild, Verified 03/11/23 13:21) Rash GI Upset levofloxacin [From Levaquin] Allergy (Verified 03/11/23 13:21) rash, malaise, nausea- per H&P sertraline Allergy (Verified 03/11/23 13:21) N/V Diarrhea- per H&P Latex Agent Allergy (Mild, Uncoded 03/11/23 13:21) Hives Sulfa Drugs Allergy (Mild, Uncoded 03/11/23 13:21) Upset Stomach Medication List - Last Reconciled 03/11/23 by Cira Sharp LPN acetaminophen [id number] mg PO Q4-6H PRN albuterol sulfate 2.5 mg (3 mL) inhalation Q4H PRN 30 days albuterol sulfate 90 mcg/actuation 2 puffs PO Q6H PRN amlodipine 10 mg PO DAILY aspirin 81 mg PO DAILY atorvastatin 80 mg PO DAILY benzonatate 100 mg PO TID blood sugar diagnostic As directed Breo Ellipta 200-25 mcg/dose (fluticasone furoate-vilanterol) 1 ea inhalation DAILY 90 days NS brimonidine 0.2% 0 drps ophthalmic (eye) budesonide 0.5 mg (2 mL) inhalation BID 30 days codeine-guaifenesin 10-100 mg/5 mL 10 mL PO Q6H PRN 10 days cyanocobalamin (vitamin B-12) 500 mcg IM Q4W fluticasone propionate 50 mcg/actuation 2 sprays intranasal DAILY 30 days lancets As directed lanolin hiokscl-pn-w.pet-ceres (Minerin Creme topical) appl topical latanoprost 0.005% 1 drp ophthalmic (eye) DAILY latanoprostene bunod 0.024% (Vyzulta) 1 drp ophthalmic (eye) DAILY levothyroxine 112 mcg PO DAILY lidocaine 5% 1 patch topical DAILY losartan 50 mg PO DAILY melatonin 10 mg PO BEDTIME metoprolol tartrate 25 mg PO BID mirtazapine 0 mg PO montelukast 10 mg PO BEDTIME nebulizers As directed omeprazole 20 mg PO QAM rosuvastatin 5 mg PO DAILY ticagrelor (Brilinta) 90 mg PO BID HPI Wheezing HPI Details Abby is a pleasant 78 year old female, former smoker, followed for bronchiectasis, asthma, SANDRA on CPAP, h/o DVT, anemia, h/o [place] s/p stent and GERD. At baseline, she is well controlled on Breo, singulair, albuterol MDI/neb and suppressive therapy with azithromycin 3x/week. Today she is here for an acute visit. She reports symptoms of moderate wheezing, cough with clear sputum, chest congestion and dyspnea over the last three weeks. She denies fevers, chills or sick contacts. She started using nebulized budesonide BID and has needed albuterol q4 hours with partial relief. She was seen by PCP last week who prescribed guafensain with codeine as well as prednisone taper with some improvement, however today is the last day of the prednisone taper. She was negative for COVID and CXR last week was reportedly unremarkable. [facility] Medical History (Updated 03/11/23 @ 13:46 by Bea Ortiz NP) CAD (coronary artery disease) Bradycardia Glaucoma Dizziness Osteopenia Hx of deep venous thrombosis Back pain Hypothyroid Diabetes Iron deficiency anemia Hx of gastroesophageal reflux (GERD) History of stomach cancer History of anxiety History of depression High cholesterol Hypertension Bronchiectasis COVID-19 Pulmonary nodules Asthma SANDRA on CPAP Surgical History History of thyroid surgery S/P laparoscopic-assisted sigmoidectomy History of partial gastrectomy Hx of colonoscopy Family History (Updated 12/23/19 @ 21:54 by Elliot Hammer MD) Father No problems noted. Social History (Updated 03/11/23 @ 13:25 by Cira Sharp LPN) Are you a primary home health care coordinator to a significant other at home: No Do you presently have visiting nurse or other home services: No Patient Tobacco Use Status: Former Tobacco user Tobacco use type: Cigarette Years Smoked: 15 years Smoked in Last 30 Days: No Review of Systems Const Denies chills, Denies excessive sweating, Denies fever(s), Denies headache(s) and Denies night sweats Eyes Denies dry eyes, Denies irritation and Denies itchy eyes ENT Reports Normal hearing present, Denies headache(s), Denies nasal congestion, Denies nasal discharge, Denies post nasal drip and Denies sore throat Card Denies chest pain, Denies chest pain at rest, Denies chest pain with activity, Denies claudication, Denies leg edema, Denies orthopnea and Denies paroxysmal nocturnal dyspnea Resp Denies pain on inspiration, Denies pain with cough and Denies stridor Musc Denies myalgias Neuro Reports Normal hearing present and Denies headache(s) Endo Denies excessive sweating Harmeet/Lymph Denies lymphadenopathy Aller/Immun Denies itchy eyes and Denies seasonal rhinorrhea Physical Exam Vital Signs: Last Vital Signs Pulse 78 03/11/23 13:16 BP 130/70 03/11/23 13:16 Pulse Ox 97 03/11/23 13:16 Oxygen Delivery Method Room Air 03/11/23 13:16 BMI result Body Mass Index 33.6 Const General: cooperative, well developed and alert Nutritional Appearance: obese Orientation/consciousness: patient oriented x3 Limitations: no limitations HEENT Head: Yes normal to inspection, Yes normocephalic and Yes atraumatic Ears: hearing grossly normal bilaterally and external ears normal Eyes General: appearance normal, both eyes and all related structures Eyelids: Yes eyelids normal Sclerae: sclerae normal EOM: EOMs intact bilaterally Neck Neck: Yes normal visual inspection and Yes no lymphadenopathy Lymphatic: no lymphadenopathy noted Chest Chest palpation & inspection: normal inspection of the chest Resp Effort & Inspection: normal respiratory effort, able to speak in complete sentences (coughing throughout visit), audible wheezes, Actively coughing, labored, no stridor, not tachypneic, no tripod positioning and no use of accessory muscles Auscultation: rhonchi and wheezes (moderate ) expiratory wheezes and scattered wheezes Cardio Jugular venous distension: no JVD Rate: regular rate Rhythm: regular rhythm Skin Other: warm, dry General skin exam: no rashes or lesions noted Neuro General: patient oriented x3 Cranial nerves: Yes Normal hearing present Cognition (Neuro): normal cognition Gait exam (Neuro): Normal gait present Extrem General: Yes normal to inspection, Yes capillary refill normal, Yes no clubbing, cyanosis or edema and Yes no pedal edema Psych Appearance: grossly normal and well kempt Speech and movement: Normal speech and movement present and Clear speech present Affect: normal affect Attitude: cooperative Thought process: Normal thought process present Thought content: Normal thought content present Insight: Good insight present (Psych) Judgement: Good judgement present (Psych) Office Meds methylprednisolone sod suc(PF) 125 mg/2 mL solution for injection Performing Provider: Bea Ortiz NP Performing Location: [facility] Administered by: Cira Sharp LPN on 03/11/23 14:00 Dose Route Admin Location Dispensed Lot Number Expiration Date [facility] Implementation Architect 125 mg IM left buttock 2 mL [id number] 06/07/25 6164-1800-69 [employer] Assessment & Plan Assessment & Plan (1) Bronchiectasis: Code(s): J47.9 - Bronchiectasis, uncomplicated Qualifiers: Bronchiectasis type: with acute exacerbation Qualified Code(s): J47.1 - Bronchiectasis with (acute) exacerbation (2) Cough: Code(s): R05.9 - Cough, unspecified (3) Pulmonary nodules: Code(s): R91.8 - Other nonspecific abnormal finding of lung field (4) Asthma: Code(s): J45.909 - Unspecified asthma, uncomplicated Qualifiers: Asthma complication type: uncomplicated Asthma persistence: persistent Asthma severity: moderate Qualified Code(s): J45.40 - Moderate persistent asthma, uncomplicated (5) SANDRA on CPAP: Code(s): G47.33 - Obstructive sleep apnea (adult) (pediatric); Z99.89 - Dependence on other enabling machines and devices Plan Will treat bronchitic symptoms with vantin and send in extended prednisone taper. She was given solumedrol IM in office. If symptoms are unchanged after antibiotics, will obtain CXR and call office. She is aware if symptoms worsen to seek emergent care. All questions were answered and patient is in agreement of plan. Will follow up with Dr. Hammer for regularly scheduled appointment. Orders: Orders XR chest 2V Today R05.9 - Cough, unspecified AMB Methylprednisolone Injection Today J45.909 - Unspecified asthma, uncomplicated, R05.9 - Cough, unspecified Medications: New prednisone Take 4 pills daily for 5 days, then go down by 1 pill every 5 days; 20 days 50 tabs 10 mg PO DIRECTED 50 tabs 0RF cefpodoxime must administer with a meal/food 200 mg (2 x 100 mg) PO BID 14 tabs 0RF Coding Level of Care Code Est Pt Level 4 (69222) Diagnoses Bronchiectasis with acute exacerbation J47.1 Bronchiectasis type: with acute exacerbation Cough R05.9 Pulmonary nodules R91.8 Moderate persistent asthma without complication J45.40 Asthma complication type: uncomplicated Asthma persistence: persistent Asthma severity: moderate SANDRA on CPAP G47.33; Z99.89
[2023-03-11 13:16] VITALS: BP 130/70; PULSE 78; O2SAT 97; BMI 33.6
== END 2023-03-11 13:51 | disposition home or self-care (01) ==
PROVIDERS: PCP Nurse Practitioner Family; Visit Provider Nurse Practitioner Family
DX: J47.1 Bronchiectasis with (acute) exacerbation (principal); R05.9 Cough, unspecified; R91.8 Other nonspecific abnormal finding of lung field; J45.40 Moderate persistent asthma, uncomplicated; G47.33 Obstructive sleep apnea (adult) (pediatric); Z99.89 Dependence on other enabling machines and devices; J45.909 Unspecified asthma, uncomplicated
CPT/HCPCS: 99214

== ENCOUNTER → 2023-03-11 13:11 | Outpatient (BNVA) | payer OTHER, SELFPAY | PROVIDERS: PCP Nurse Practitioner Family; Visit Provider Nurse Practitioner Family | DX: J47.1 Bronchiectasis with (acute) exacerbation (principal); R91.8 Other nonspecific abnormal finding of lung field; J45.40 Moderate persistent asthma, uncomplicated; G47.33 Obstructive sleep apnea (adult) (pediatric); Z99.89 Dependence on other enabling machines and devices | CPT/HCPCS: 99212; J2930 ==

== ENCOUNTER 2023-04-25 13:50 | Outpatient (AMB) | payer OTHER, SELFPAY ==
--- NOTE | 2023-04-25 13:59 | A.OFFVIS_ITS ---
Intake Vital Signs 04/25/23 14:00 Height 5 ft 1 in Weight 175 lb 4.28 oz BMI 33.1 BP 122/42 L Blood Pressure Location Rt brachial Position Sitting Pulse 55 Pulse Source Pulse Oximeter Pulse Oximetry (%) 98 Oxygen Delivery Method Room Air Intake Visit Reasons: Asthma follow-up Intake Note: pt is here for follow up and states she is feeling okay today. Export Manager Required: No Allergies aspirin Allergy (Mild, Verified 04/25/23 14:03) Hives oxycodone Allergy (Mild, Verified 04/25/23 14:03) Rash GI Upset levofloxacin [From Levaquin] Allergy (Verified 04/25/23 14:03) rash, malaise, nausea- per H&P sertraline Allergy (Verified 04/25/23 14:03) N/V Diarrhea- per H&P Latex Agent Allergy (Mild, Uncoded 04/25/23 14:03) Hives Sulfa Drugs Allergy (Mild, Uncoded 04/25/23 14:03) Upset Stomach HPI HPI Comments History of Present Illness Details The patient is a 78-year-old woman with a known history of pulmonary nodules, obstructive sleep apnea on CPAP in addition to having bariatric surgery. apparently since I saw her she did develop covid 19 infection and was admitted to [facility] initially back in July 21. she was then readmitted back on August 09 with again a positive covid tennis and significant GI symptoms. She did not require any oxygen. We did review her previous CT scan of the chest done here back in February 2019 demonstrating numerous pulmonary nodules along with some bronchiectatic changes in some areas of atelectasis. She continues to have a cough in addition to some shortness of breath. Xevs-im-xyahskka severity. No significant mucus production. At this point she needs to have a repeat CT scan of the chest. Will have her get 1 in 3 months with her follow-up. In regards to her CPAP the CPAP therapy continues to be Effective in beneficial. She does use her CPAP more than 4 hours a night. He uses a nasal mask. She does complaint of a dry mouth. We did prescribe her a chinstrap during the last visit but she did not know how to use it. Therefore she was instructed how to use it. She has some known bronchiectasis and her previous CT scan. We did talk about potentially consider bronchoscopy. She would like to hold off at this time. Will have blood work done to further address the bronchiectasis. In the meantime she continues use her CPAP. The CPAP therapy continues to be affecting beneficial. She does use it more than 4 hours a night. She still getting dryness of the mouth. Will try to request axis to rest med to try to adjust humidification. 05/14/2022 the patient is here for a pulpuja cramer follow-up visit. The patient overall is feeling better from a respiratory status. However, she went to the ER with elevated blood pressures. The patient was noted to have some cardiac strain. This was at [facility]. She was then placed on metoprolol. Seems that she is tolerating the metoprolol with her history of asthma. However in the office she was noted to have a low heart rate which was resting at 50 beats per minute. She states that she had been feeling dizzy lately. Yesterday she had checked her blood pressure and was 107/50. Therefore, I emphasized to her that she needs to call her airline pilot flight instructor regarding her current dose of metoprolol as the dose may have to be decreased to some degree. I also walker briefly in the office to make sure the heart rate did increase and it went from 50 beats per minute to about 59 the high as with activity. The patient was not dizzy during that ambulation. I did ask her to lock down all her vitals as she checks them especially if she is symptomatic so she has all those numbers for primary care and also her airline pilot flight instructor. Her she continues use the Breo inhaler. She is not using any long-acting muscarinic antagonist because of a history of glaucoma. She continues uses singular at nighttime. This medication she will continue. 10/21/2022 the patient is here for pulmonary follow-up visit. She is feeling well. Still having significant chest congestion and chest tightness. She did take some prednisone with some partial improvement. Denies any fevers or chills. She had some azithromycin available and she did take it and her cough did improve and the mucus burden is less. The patient's mucus now is clearing up. She does have a history of Pseudomonas however. I did give her specimen cup. She will go back on the azithromycin 3 times a week. She her EKG that she just had demonstrated a normal QT interval which is reassuring. If the patient has some sputum or chest congestion worsens that she is to provide a sputum sample. The patient should also have a chest x-ray done since she has not had 1 in some time. She will continue with current respiratory therapy. The meantime the patient has been using the CPAP. The CPAP therapy has been affecting beneficial. She does use it for more than 4 hours a night. She has been having some sinus pressure and headaches while using the nasal mask. I did recommend she can switch over to a fullface mask, F 20. 12/23/2022 the [facility]. since we last spoke the patient did end up having substernal chest discomfort and was transferred over to [facility] where she was diagnosed with a non ST elevation [place]. the patient underwent PCI with stent placement. Subsequently after that the patient did have further evaluation with Cardiology. She apparently has a 70% blockage another artery. She is going to likely have a stress test and then find out if she needs additional stent placements. From a respiratory status the patient is starting to have worsening cough. She has been exposed to family members COVID- 19 although she has not had any fevers or chills and has not tested herself as of yet. I did encourage her to do so. In the meantime she does not want to use prednisone because she was told not to use prednisone while dealing with a cardiac issue. The patient does have a cough which tends to be nonproductive in nature. She also complains of sinus congestion. The patient will go ahead and start her nebulizer treatments with budesonide to avoid prednisone. In addition to that will restart the azithromycin. I did look at her EKG and QT intervals were within normal limits in November. if the patient is no better she will call the office for further evaluation management. 04/25/2023 the patient is here for a pulmonary follow-up visit. Patient now is feeling better. Back in March she did have a flare-up and she was evaluated in office and was given antibiotics and prednisone. She is still using her nebulizer. Still using her Breo. still, having some chest congestion and wheezing. She is now off the prednisone. Will start her back on nebulized therapy. She can not take muscarinic antagonist because of history of glaucoma. The patient also has been using his CPAP. CPAP therapy has been affecting beneficial she does use it every night. She does use it for more than 4 hours a night. Will request supplies this time. [facility] Medical History (Updated 03/11/23 @ 13:46 by Bea Ortiz NP) CAD (coronary artery disease) Bradycardia Glaucoma Dizziness Osteopenia Hx of deep venous thrombosis Back pain Hypothyroid Diabetes Iron deficiency anemia Hx of gastroesophageal reflux (GERD) History of stomach cancer History of anxiety History of depression High cholesterol Hypertension Bronchiectasis COVID-19 Pulmonary nodules Asthma SANDRA on CPAP Surgical History History of thyroid surgery S/P laparoscopic-assisted sigmoidectomy History of partial gastrectomy Hx of colonoscopy Family History (Updated 12/23/19 @ 21:54 by Elliot Hammer MD) Father No problems noted. Social History (Reviewed 04/25/23 @ 14:07 by Christine Davis [facility]) Are you a primary post acute care nurse practitioner to a significant other at home: No Do you presently have visiting nurse or other home services: No Patient Tobacco Use Status: Former Tobacco user Tobacco use type: Cigarette Years Smoked: 15 years Review of Systems Const Reports fatigue, Denies fever(s) and Denies night sweats ENT Denies change in voice, Reports dizziness, Denies lip swelling, Denies mouth pain, Reports nasal congestion, Reports nasal discharge, Reports sore throat and Denies tongue swelling Card Denies chest pain Resp Denies chest congestion, Reports cough, Denies hemoptysis, Denies excessive phlegm production, Denies pain on inspiration, Denies pain with cough and Reports wheezing GI Denies abdominal pain Musc Denies no additional complaints Neuro Denies Neuro-related abnormal movements and Reports dizziness Psych Denies no additional complaints Endo Reports fatigue Harmeet/Lymph Denies easy bleeding and Denies lymphadenopathy Aller/Immun Denies lip swelling, Denies tongue swelling and Reports wheezing Physical Exam Vital Signs: Last Vital Signs Pulse 55 04/25/23 14:00 BP 122/42 L 04/25/23 14:00 Pulse Ox 98 04/25/23 14:00 Oxygen Delivery Method Room Air 04/25/23 14:00 BMI result Body Mass Index 33.1 Const General: comfortable Orientation/consciousness: patient oriented x3 Resp Effort & Inspection: able to speak in complete sentences Auscultation: diminished lung sounds GI Auscultation: normal bowel sounds Neuro General: patient oriented x3 Results Reviewed Results Reviewed: [address] [address] XRay Report Signed Patient: Abby Dukes MR#: [id number] : 1945 Acct:[id number] Age/Sex: 77 / F ADM Date: 10/21/22 Loc: HO.XRAY Attending Dr: Elliot aHmmer MD Ordering Physician: Elliot Hammer MD Date of Service: 10/21/22 Procedure(s): XR chest 2V Accession Number(s): [id number] cc: Elliot Hammer MD~ EXAMINATION: XR CHEST CLINICAL INFORMATION: Bronchiectasis. COMPARISON: CT chest dated 01/30/2021. TECHNIQUE: Frontal and lateral views of the chest were obtained. FINDINGS: The heart, great vessels, pulmonary vasculature and mediastinum are normal. The lungs show no focal infiltrate, effusion or pneumothorax. There is biapical pleural thickening. There is stable scar/subsegmental atelectasis at the right apex. Stable vertical scar/subsegmental atelectasis is seen medially within the left lower lobe. There is mild elevation of the right hemidiaphragm. There is no acute osseous abnormality. Cervical surgical clips are seen consistent with a prior thyroidectomy. XR/XR chest 2V IMPRESSION: 1. No focal infiltrate or congestive heart failure is seen. 2. There is persistent linear scar/subsegmental atelectasis within the retrocardiac region and at the right apex. Dictated By: Collin Rodriguez MD Signed By: <Electronically signed by Collin Rodriguez MD in OV> 10/23/225 DD/ 1415 TD/TT: Television Engineering Teacher: CARLOS A Assessment & Plan Assessment & Plan (1) Bronchiectasis: Code(s): J47.9 - Bronchiectasis, uncomplicated Qualifiers: Bronchiectasis type: with acute exacerbation Qualified Code(s): J47.1 - Bronchiectasis with (acute) exacerbation (2) Pulmonary nodules: Code(s): R91.8 - Other nonspecific abnormal finding of lung field (3) Asthma: Code(s): J45.909 - Unspecified asthma, uncomplicated Qualifiers: Asthma complication type: uncomplicated Asthma persistence: persistent Asthma severity: moderate Qualified Code(s): J45.40 - Moderate persistent asthma, uncomplicated (4) SANDRA on CPAP: Code(s): G47.33 - Obstructive sleep apnea (adult) (pediatric); Z99.89 - Dependence on other enabling machines and devices (5) CAD (coronary artery disease): Code(s): I25.10 - Atherosclerotic heart disease of [place] coronary artery without angina pectoris Qualifiers: Associated angina: without angina Coronary Disease-Associated Artery/Lesion type: [place] artery [place] vs. transplanted heart: [place] heart Qualified Code(s): I25.10 - Atherosclerotic heart disease of [place] coronary artery without angina pectoris Plan Continue APAP, adjusted pressures 6-14, F20 med mask, adjusted humidity from 4 to 3 Continue CPT with nebulized therapy and Acapella valve. Consider percussion vest if worsens Continue Breo 200, restart budesonide BID short-acting beta agonist as needed restart azithromycin 3 times a week, EKG ok 11/2022 CXR Continue Singulair Follow-up in 2-3 months Coding Level of Care Code Est Pt Level 4 (06258) Diagnoses Bronchiectasis with acute exacerbation J47.1 Bronchiectasis type: with acute exacerbation Pulmonary nodules R91.8 Moderate persistent asthma without complication J45.40 Asthma complication type: uncomplicated Asthma persistence: persistent Asthma severity: moderate SANDRA on CPAP G47.33; Z99.89 Coronary artery disease involving [place] coronary artery of [place] heart without angina pectoris I25.10 Associated angina: without angina Coronary Disease-Associated Artery/Lesion type: [place] artery [place] vs. transplanted heart: [place] heart Time Spent (min) 17
[2023-04-25 14:00] VITALS: BP 122/42; PULSE 55; O2SAT 98; BMI 33.1
== END 2023-04-25 14:23 | disposition home or self-care (01) ==
PROVIDERS: PCP Nurse Practitioner Family; Visit Provider Hospitalist
DX: J47.1 Bronchiectasis with (acute) exacerbation (principal); R91.8 Other nonspecific abnormal finding of lung field; J45.40 Moderate persistent asthma, uncomplicated; G47.33 Obstructive sleep apnea (adult) (pediatric); Z99.89 Dependence on other enabling machines and devices; I25.10 Atherosclerotic heart disease of native coronary artery without angina pectoris
CPT/HCPCS: 99214

== ENCOUNTER → 2023-04-25 13:50 | Outpatient (BNVA) | payer OTHER, SELFPAY | PROVIDERS: PCP Nurse Practitioner Family; Visit Provider Hospitalist | DX: J47.1 Bronchiectasis with (acute) exacerbation (principal); R91.8 Other nonspecific abnormal finding of lung field; J45.40 Moderate persistent asthma, uncomplicated; G47.33 Obstructive sleep apnea (adult) (pediatric); I25.10 Atherosclerotic heart disease of native coronary artery without angina pectoris; Z99.89 Dependence on other enabling machines and devices | CPT/HCPCS: 99212 ==

== ENCOUNTER 2023-08-19 13:04 | Outpatient (AMB) | payer OTHER, SELFPAY ==
[2023-08-19 13:19] VITALS: PULSE 57; O2SAT 97; BMI 34.4
--- NOTE | 2023-08-19 13:19 | MHC.OFFVIS ---
Vital Signs 08/19/23 13:19 Height 5 ft Weight 176 lb BMI 34.4 Pulse 57 Pulse Source Pulse Oximeter Pulse Oximetry (%) 97 Oxygen Delivery Method Room Air Intake Visit Reasons: Asthma Poolroom/Poolhall Manager Required: No Allergies aspirin Allergy (Mild, Verified 08/19/23 13:20) Hives oxycodone Allergy (Mild, Verified 08/19/23 13:20) Rash GI Upset levofloxacin [From Levaquin] Allergy (Verified 08/19/23 13:20) rash, malaise, nausea- per H&P sertraline Allergy (Verified 08/19/23 13:20) N/V Diarrhea- per H&P Latex Agent Allergy (Mild, Uncoded 08/19/23 13:20) Hives Sulfa Drugs Allergy (Mild, Uncoded 08/19/23 13:20) Upset Stomach HPI Comments Details: The patient is a 78-year-old woman with a known history of pulmonary nodules, obstructive sleep apnea on CPAP in addition to having bariatric surgery. apparently since I saw her she did develop covid 19 infection and was admitted to [facility] initially back in July 21. she was then readmitted back on August 09 with again a positive covid tennis and significant GI symptoms. She did not require any oxygen. We did review her previous CT scan of the chest done here back in February 2019 demonstrating numerous pulmonary nodules along with some bronchiectatic changes in some areas of atelectasis. She continues to have a cough in addition to some shortness of breath. Iybl-bj-tzzlqzsx severity. No significant mucus production. At this point she needs to have a repeat CT scan of the chest. Will have her get 1 in 3 months with her follow-up. In regards to her CPAP the CPAP therapy continues to be Effective in beneficial. She does use her CPAP more than 4 hours a night. He uses a nasal mask. She does complaint of a dry mouth. We did prescribe her a chinstrap during the last visit but she did not know how to use it. Therefore she was instructed how to use it. She has some known bronchiectasis and her previous CT scan. We did talk about potentially consider bronchoscopy. She would like to hold off at this time. Will have blood work done to further address the bronchiectasis. In the meantime she continues use her CPAP. The CPAP therapy continues to be affecting beneficial. She does use it more than 4 hours a night. She still getting dryness of the mouth. Will try to request axis to rest med to try to adjust humidification. 12/23/2022 the patient is has a telehealth visit today. since we last spoke the patient did end up having substernal chest discomfort and was transferred over to [facility] where she was diagnosed with a non ST elevation [place]. the patient underwent PCI with stent placement. Subsequently after that the patient did have further evaluation with Cardiology. She apparently has a 70% blockage another artery. She is going to likely have a stress test and then find out if she needs additional stent placements. From a respiratory status the patient is starting to have worsening cough. She has been exposed to family members COVID-19 although she has not had any fevers or chills and has not tested herself as of yet. I did encourage her to do so. In the meantime she does not want to use prednisone because she was told not to use prednisone while dealing with a cardiac issue. The patient does have a cough which tends to be nonproductive in nature. She also complains of sinus congestion. The patient will go ahead and start her nebulizer treatments with budesonide to avoid prednisone. In addition to that will restart the azithromycin. I did look at her EKG and QT intervals were within normal limits in November. if the patient is no better she will call the office for further evaluation management. 04/25/2023 the patient is here for a pulmonary follow-up visit. Patient now is feeling better. Back in March she did have a flare-up and she was evaluated in office and was given antibiotics and prednisone. She is still using her nebulizer. Still using her Breo. still, having some chest congestion and wheezing. She is now off the prednisone. Will start her back on nebulized therapy. She can not take muscarinic antagonist because of history of glaucoma. The patient also has been using his CPAP. CPAP therapy has been affecting beneficial she does use it every night. She does use it for more than 4 hours a night. Will request supplies this time. 08/19/2023 the patient is here for a pulmonary follow-up visit. The patient is doing very well. Her asthma seems to be better controlled on the Breo 200. She has not had to use the budesonide which is reassuring. She also has albuterol that she has not required typically does not 2 times a week. She has concerned about the summer months because she has a hard time with breathing. She is going to monitor closely for the air pollution and ground ozone. The patient has been using her CPAP. The CPAP therapy has been affecting beneficial. She has using a fullface mask. Her AHI is down to 1.4. Her pressures are good. She is in 100% compliance. Will going to request additional supplies at this time. The patient returns 6 months or sooner if she has any worsening issues or any new concerns. [facility] Medical History (Updated 03/11/23 @ 13:46 by Bea Ortiz NP) CAD (coronary artery disease) Bradycardia Glaucoma Dizziness Osteopenia Hx of deep venous thrombosis Back pain Hypothyroid Diabetes Iron deficiency anemia Hx of gastroesophageal reflux (GERD) History of stomach cancer History of anxiety History of depression High cholesterol Hypertension Bronchiectasis COVID-19 Pulmonary nodules Asthma SANDRA on CPAP Surgical History History of thyroid surgery S/P laparoscopic-assisted sigmoidectomy History of partial gastrectomy Hx of colonoscopy Family History (Updated 12/23/19 @ 21:54 by Elliot Hammer MD) Father No problems noted. Social History Are you a primary career specialist to a significant other at home: No Do you presently have visiting nurse or other home services: No Patient Tobacco Use Status: Former Tobacco user Tobacco use type: Cigarette Years Smoked: 15 years Review of Systems Const Denies fatigue, Denies fever(s) and Denies night sweats ENT Denies change in voice, Denies dizziness, Denies lip swelling, Denies mouth pain, Reports nasal congestion, Reports nasal discharge, Reports sore throat and Denies tongue swelling Card Denies chest pain Resp Denies chest congestion, Reports cough, Denies hemoptysis, Denies excessive phlegm production, Denies pain on inspiration, Denies pain with cough and Reports wheezing GI Denies abdominal pain Musc Denies no additional complaints Neuro Denies Neuro-related abnormal movements and Denies dizziness Psych Denies no additional complaints Endo Denies fatigue Harmeet/Lymph Denies easy bleeding and Denies lymphadenopathy Aller/Immun Denies lip swelling, Denies tongue swelling and Reports wheezing Physical Exam Vital Signs: Last Vital Signs Pulse 57 08/19/23 13:19 Pulse Ox 97 08/19/23 13:19 Oxygen Delivery Method Room Air 08/19/23 13:19 BMI result Body Mass Index 34.4 Const General: alert Neck Neck: Yes normal visual inspection, Yes full ROM and Yes no lymphadenopathy Chest Chest palpation & inspection: normal inspection of the chest Resp Auscultation: no rhonchi, no wheezes and diminished lung sounds Cardio Rate: regular rate Rhythm: regular rhythm Heart sounds: Murmur heart sound present GI Palpation (GI): Soft to palpation and nontender Auscultation: normal bowel sounds Skin General skin exam: rashes and/or lesions noted Assessment & Plan Assessment & Plan (1) Bronchiectasis: Code(s): J47.9 - Bronchiectasis, uncomplicated Category: Medical Qualifiers: Bronchiectasis type: with acute exacerbation Qualified Code(s): J47.1 - Bronchiectasis with (acute) exacerbation (2) Pulmonary nodules: Code(s): R91.8 - Other nonspecific abnormal finding of lung field Category: Medical (3) Asthma: Code(s): J45.909 - Unspecified asthma, uncomplicated Category: Medical Qualifiers: Asthma complication type: uncomplicated Asthma persistence: persistent Asthma severity: moderate Qualified Code(s): J45.40 - Moderate persistent asthma, uncomplicated (4) SANDRA on CPAP: Code(s): G47.33 - Obstructive sleep apnea (adult) (pediatric); Z99.89 - Dependence on other enabling machines and devices Category: Medical (5) CAD (coronary artery disease): Code(s): I25.10 - Atherosclerotic heart disease of [place] coronary artery without angina pectoris Category: Medical Qualifiers: Associated angina: without angina Coronary Disease-Associated Artery/Lesion type: [place] artery [place] vs. transplanted heart: [place] heart Qualified Code(s): I25.10 - Atherosclerotic heart disease of [place] coronary artery without angina pectoris Plan Continue APAP, adjusted pressures 6-14, F20 med mask Continue CPT with nebulized therapy and Acapella valve. Consider percussion vest if worsens Continue Breo 200, hold budesonide BID short-acting beta agonist as needed azithromycin 3 times a week, EKG ok 11/2022 Continue Singulair Follow-up in 4-6 months Medications: Refilled Breo Ellipta 200-25 mcg/dose (fluticasone furoate-vilanterol) 1 ea inhalation DAILY 3 ea 3RF 90 days NS Coding Level of Care Code Est Pt Level 4 (40231) Diagnoses Bronchiectasis with acute exacerbation J47.1 Bronchiectasis type: with acute exacerbation Pulmonary nodules R91.8 Moderate persistent asthma without complication J45.40 Asthma complication type: uncomplicated Asthma persistence: persistent Asthma severity: moderate SANDRA on CPAP G47.33; Z99.89 Coronary artery disease involving [place] coronary artery of [place] heart without angina pectoris I25.10 Associated angina: without angina Coronary Disease-Associated Artery/Lesion type: [place] artery [place] vs. transplanted heart: [place] heart Time Spent (min) 17
== END 2023-08-19 13:41 | disposition home or self-care (01) ==
PROVIDERS: PCP Nurse Practitioner Family; Visit Provider Hospitalist
DX: J47.1 Bronchiectasis with (acute) exacerbation (principal); R91.8 Other nonspecific abnormal finding of lung field; J45.40 Moderate persistent asthma, uncomplicated; G47.33 Obstructive sleep apnea (adult) (pediatric); Z99.89 Dependence on other enabling machines and devices; I25.10 Atherosclerotic heart disease of native coronary artery without angina pectoris
CPT/HCPCS: 99214

== ENCOUNTER → 2023-08-19 13:04 | Outpatient (BNVA) | payer OTHER, SELFPAY | PROVIDERS: PCP Nurse Practitioner Family; Visit Provider Hospitalist | DX: J45.40 Moderate persistent asthma, uncomplicated (principal); J47.1 Bronchiectasis with (acute) exacerbation; R91.8 Other nonspecific abnormal finding of lung field; I25.10 Atherosclerotic heart disease of native coronary artery without angina pectoris; G47.33 Obstructive sleep apnea (adult) (pediatric); Z99.89 Dependence on other enabling machines and devices | CPT/HCPCS: 99212 ==

== ENCOUNTER 2024-02-04 10:01 | Outpatient (AMB) | payer OTHER, SELFPAY ==
--- NOTE | 2024-02-04 10:03 | A.OFFVIS_ITS ---
Vital Signs 02/04/24 10:04 Height 5 ft 1 in Weight 178 lb BMI 33.6 BP 110/52 L Blood Pressure Location Lt brachial Position Sitting Pulse 60 Pulse Source Pulse Oximeter Pulse Oximetry (%) 98 Oxygen Delivery Method Room Air Intake Visit Reasons: cough Allergies aspirin Allergy (Mild, Verified 02/04/24 10:07) Hives oxycodone Allergy (Mild, Verified 02/04/24 10:07) Rash GI Upset levofloxacin [From Levaquin] Allergy (Verified 02/04/24 10:07) rash, malaise, nausea- per H&P sertraline Allergy (Verified 02/04/24 10:07) N/V Diarrhea- per H&P Latex Agent Allergy (Mild, Uncoded 02/04/24 10:07) Hives Sulfa Drugs Allergy (Mild, Uncoded 02/04/24 10:07) Upset Stomach HPI HPI cough: Details: Abby is a pleasant 79 year old female, former smoker, followed for bronchiectasis, asthma, SANDRA on CPAP, h/o DVT, anemia, h/o CT s/p stent and GERD. At baseline, she is well controlled on Breo, singulair, albuterol MDI/neb. She was previously on suppressive therapy with azithromycin 3x/week but d/c, she notes months ago. She is under the care of and presents for an acute visit. She reports symptoms dry cough that has been persistent with intermittent chest tightness and dyspnea. She denies fevers, chills or sick contacts. [facility] Medical History (Updated 03/11/23 @ 13:46 by Bea Ortiz NP) CAD (coronary artery disease) Bradycardia Glaucoma Dizziness Osteopenia Hx of deep venous thrombosis Back pain Hypothyroid Diabetes Iron deficiency anemia Hx of gastroesophageal reflux (GERD) History of stomach cancer History of anxiety History of depression High cholesterol Hypertension Bronchiectasis COVID-19 Pulmonary nodules Asthma SANDRA on CPAP Surgical History History of thyroid surgery S/P laparoscopic-assisted sigmoidectomy History of partial gastrectomy Hx of colonoscopy Family History (Updated 12/23/19 @ 21:54 by Elliot Hammer MD) Father No problems noted. Social History Are you a primary post acute care nurse practitioner to a significant other at home: No Do you presently have visiting nurse or other home services: No Patient Tobacco Use Status: Former Tobacco user Tobacco use type: Cigarette Years Smoked: 15 years Review of Systems Const Denies chills, Denies excessive sweating, Denies fever(s), Denies headache(s) and Denies night sweats Eyes Denies dry eyes, Denies irritation and Denies itchy eyes ENT Reports Normal hearing present, Denies headache(s), Denies nasal congestion, Denies nasal discharge and Denies sore throat Card Denies chest pain, Denies chest pain at rest, Denies chest pain with activity, Denies claudication, Denies leg edema, Denies orthopnea and Denies paroxysmal nocturnal dyspnea Resp Denies chest congestion, Denies excessive phlegm production, Denies pain on inspiration, Denies pain with cough, Denies stridor and Denies wheezing Musc Denies myalgias Neuro Reports Normal hearing present and Denies headache(s) Endo Denies excessive sweating Harmeet/Lymph Denies lymphadenopathy Aller/Immun Denies itchy eyes, Denies seasonal rhinorrhea and Denies wheezing Physical Exam Vital Signs: Last Vital Signs Pulse 60 02/04/24 10:04 BP 110/52 L 02/04/24 10:04 Pulse Ox 98 02/04/24 10:04 Oxygen Delivery Method Room Air 02/04/24 10:04 BMI result Body Mass Index 33.6 Const General: cooperative, healthy appearing, comfortable, no acute distress, well developed and alert Nutritional Appearance: obese Orientation/consciousness: patient oriented x3 Limitations: no limitations HEENT Head: Yes normal to inspection, Yes normocephalic and Yes atraumatic Ears: hearing grossly normal bilaterally and external ears normal Eyes General: appearance normal, both eyes and all related structures Eyelids: Yes eyelids normal Sclerae: sclerae normal EOM: EOMs intact bilaterally Neck Neck: Yes normal visual inspection and Yes no lymphadenopathy Lymphatic: no lymphadenopathy noted Chest Chest palpation & inspection: normal inspection of the chest Resp Other: postexhalation cough Effort & Inspection: normal respiratory effort, able to speak in complete sentences, no audible wheezes, no stridor, not tachypneic, no tripod positioning and no use of accessory muscles Auscultation: clear to auscultation bilaterally Cardio Jugular venous distension: no JVD Rate: regular rate Rhythm: regular rhythm Skin Other: warm, dry General skin exam: no rashes or lesions noted Neuro General: patient oriented x3 Cranial nerves: Yes Normal hearing present Cognition (Neuro): normal cognition Gait exam (Neuro): Normal gait present Extrem General: Yes normal to inspection, Yes capillary refill normal, Yes no clubbing, cyanosis or edema and Yes no pedal edema Psych Appearance: grossly normal and well kempt Speech and movement: Normal speech and movement present and Clear speech present Affect: normal affect Attitude: cooperative Thought process: Normal thought process present Thought content: Normal thought content present Insight: Good insight present (Psych) Judgement: Good judgement present (Psych) Assessment & Plan Assessment & Plan (1) Asthma: Code(s): J45.909 - Unspecified asthma, uncomplicated Category: Medical Qualifiers: Asthma severity: moderate Asthma persistence: persistent Asthma complication type: uncomplicated Qualified Code(s): J45.40 - Moderate persistent asthma, uncomplicated (2) Bronchiectasis: Code(s): J47.9 - Bronchiectasis, uncomplicated Category: Medical Qualifiers: Bronchiectasis type: with acute exacerbation Qualified Code(s): J47.1 - Bronchiectasis with (acute) exacerbation (3) Cough: Code(s): R05.9 - Cough, unspecified Category: Medical (4) Pulmonary nodules: Code(s): R91.8 - Other nonspecific abnormal finding of lung field Category: Medical Plan Will send prednisone and refill flonase. If symptoms are unchanged she is aware to call office. All questions were answered and patient is in agreement of plan. Will follow up with Dr. Hammer for regularly scheduled appointment or sooner if needed. Medications: New fluticasone propionate 50 mcg/actuation (Flonase Allergy Relief) administer into each nostril 2 sprays intranasal DAILY 16 grams 3RF prednisone 40 mg (2 x 20 mg) PO DAILY 10 tabs 0RF Coding Level of Care Code Est Pt Level 4 (04560) Diagnoses Moderate persistent asthma without complication J45.40 Asthma severity: moderate Asthma persistence: persistent Asthma complication type: uncomplicated Bronchiectasis with acute exacerbation J47.1 Bronchiectasis type: with acute exacerbation Cough R05.9 Pulmonary nodules R91.8
[2024-02-04 10:04] VITALS: BP 110/52; PULSE 60; O2SAT 98; BMI 33.6
== END 2024-02-04 10:25 | disposition home or self-care (01) ==
PROVIDERS: PCP Nurse Practitioner Family; Visit Provider Nurse Practitioner Family
DX: J45.40 Moderate persistent asthma, uncomplicated (principal); J47.1 Bronchiectasis with (acute) exacerbation; R05.9 Cough, unspecified; R91.8 Other nonspecific abnormal finding of lung field
CPT/HCPCS: 99214

== ENCOUNTER → 2024-02-04 10:01 | Outpatient (BNVA) | payer OTHER, SELFPAY | PROVIDERS: PCP Nurse Practitioner Family; Visit Provider Nurse Practitioner Family | DX: R05.9 Cough, unspecified (principal); J47.1 Bronchiectasis with (acute) exacerbation; J45.40 Moderate persistent asthma, uncomplicated; R91.8 Other nonspecific abnormal finding of lung field; G47.33 Obstructive sleep apnea (adult) (pediatric); Z87.891 Personal history of nicotine dependence; Z99.89 Dependence on other enabling machines and devices | CPT/HCPCS: 99212 ==

== ENCOUNTER 2024-03-18 09:30 | Outpatient (AMB) | payer OTHER, SELFPAY ==
[2024-03-18 09:47] VITALS: BP 108/72; PULSE 63; O2SAT 98; BMI 33.7
--- NOTE | 2024-03-18 09:47 | MHC.OFFVIS ---
Vital Signs 03/18/24 09:47 Height 5 ft 1 in Weight 178 lb 9.191 oz BMI 33.7 BP 108/72 Blood Pressure Location Lt brachial Position Sitting Pulse 63 Pulse Source Pulse Oximeter Pulse Oximetry (%) 98 Oxygen Delivery Method Room Air Intake Visit Reasons: Asthma Allergies aspirin Allergy (Mild, Verified 03/18/24 09:51) Hives oxycodone Allergy (Mild, Verified 03/18/24 09:51) Rash GI Upset levofloxacin [From Levaquin] Allergy (Verified 03/18/24 09:51) rash, malaise, nausea- per H&P sertraline Allergy (Verified 03/18/24 09:51) N/V Diarrhea- per H&P Latex Agent Allergy (Mild, Uncoded 03/18/24 09:51) Hives Sulfa Drugs Allergy (Mild, Uncoded 03/18/24 09:51) Upset Stomach HPI Comments Details: The patient is a 79-year-old woman with a known history of pulmonary nodules, obstructive sleep apnea on CPAP in addition to having bariatric surgery. apparently since I saw her she did develop covid 19 infection and was admitted to [facility] initially back in July 21. she was then readmitted back on August 09 with again a positive covid tennis and significant GI symptoms. She did not require any oxygen. We did review her previous CT scan of the chest done here back in February 2019 demonstrating numerous pulmonary nodules along with some bronchiectatic changes in some areas of atelectasis. She continues to have a cough in addition to some shortness of breath. [id number] severity. No significant mucus production. At this point she needs to have a repeat CT scan of the chest. Will have her get 1 in 3 months with her follow-up. In regards to her CPAP the CPAP therapy continues to be Effective in beneficial. She does use her CPAP more than 4 hours a night. He uses a nasal mask. She does complaint of a dry mouth. We did prescribe her a chinstrap during the last visit but she did not know how to use it. Therefore she was instructed how to use it. She has some known bronchiectasis and her previous CT scan. We did talk about potentially consider bronchoscopy. She would like to hold off at this time. Will have blood work done to further address the bronchiectasis. In the meantime she continues use her CPAP. The CPAP therapy continues to be affecting beneficial. She does use it more than 4 hours a night. She still getting dryness of the mouth. Will try to request axis to rest med to try to adjust humidification. 12/23/2022 the patient is has a telehealth visit today. since we last spoke the patient did end up having substernal chest discomfort and was transferred over to [facility] where she was diagnosed with a non ST elevation MN. the patient underwent PCI with stent placement. Subsequently after that the patient did have further evaluation with Cardiology. She apparently has a 70% blockage another artery. She is going to likely have a stress test and then find out if she needs additional stent placements. From a respiratory status the patient is starting to have worsening cough. She has been exposed to family members COVID-19 although she has not had any fevers or chills and has not tested herself as of yet. I did encourage her to do so. In the meantime she does not want to use prednisone because she was told not to use prednisone while dealing with a cardiac issue. The patient does have a cough which tends to be nonproductive in nature. She also complains of sinus congestion. The patient will go ahead and start her nebulizer treatments with budesonide to avoid prednisone. In addition to that will restart the azithromycin. I did look at her EKG and QT intervals were within normal limits in November. if the patient is no better she will call the office for further evaluation management. 04/25/2023 the patient is here for a pulmonary follow-up visit. Patient now is feeling better. Back in March she did have a flare-up and she was evaluated in office and was given antibiotics and prednisone. She is still using her nebulizer. Still using her Breo. still, having some chest congestion and wheezing. She is now off the prednisone. Will start her back on nebulized therapy. She can not take muscarinic antagonist because of history of glaucoma. The patient also has been using his CPAP. CPAP therapy has been affecting beneficial she does use it every night. She does use it for more than 4 hours a night. Will request supplies this time. 08/19/2023 the patient is here for a pulmonary follow-up visit. The patient is doing very well. Her asthma seems to be better controlled on the Breo 200. She has not had to use the budesonide which is reassuring. She also has albuterol that she has not required typically does not 2 times a week. She has concerned about the summer months because she has a hard time with breathing. She is going to monitor closely for the air pollution and ground ozone. The patient has been using her CPAP. The CPAP therapy has been affecting beneficial. She has using a fullface mask. Her AHI is down to 1.4. Her pressures are good. She is in 100% compliance. Will going to request additional supplies at this time. The patient returns 6 months or sooner if she has any worsening issues or any new concerns. 03/18/2024 the patient is here for a pulmonary follow-up visit. Overall she is doing well from a respiratory status. She continues her respiratory medicines with good effect. She also continues her CPAP every night. CPAP therapy has been affecting beneficial. She does use it every night for more than 4 hours. She is already status with CPAP and she can not see herself without it. In the meantime the patient did undergo a breast biopsy for an abnormal finding on mammogram. She does not know the results as of yet. We also did look at a CT scan of the chest that she had back in 2020 demonstrating significant interstitial lung disease airspace disease in addition to pulmonary nodules. It will be reasonable to repeat a CT scan at this time to further evaluate those changes. [facility] Medical History (Updated 03/11/23 @ 13:46 by Bea Ortiz NP) CAD (coronary artery disease) Bradycardia Glaucoma Dizziness Osteopenia Hx of deep venous thrombosis Back pain Hypothyroid Diabetes Iron deficiency anemia Hx of gastroesophageal reflux (GERD) History of stomach cancer History of anxiety History of depression High cholesterol Hypertension Bronchiectasis COVID-19 Pulmonary nodules Asthma SANDRA on CPAP Surgical History History of thyroid surgery S/P laparoscopic-assisted sigmoidectomy History of partial gastrectomy Hx of colonoscopy Family History (Updated 12/23/19 @ 21:54 by Elliot Hammer MD) Father No problems noted. Social History Are you a primary acute care certified nursing assistant to a significant other at home: No Do you presently have visiting nurse or other home services: No Patient Tobacco Use Status: Former Tobacco user Tobacco use type: Cigarette Years Smoked: 15 years Review of Systems Const Denies fatigue, Denies fever(s) and Denies night sweats ENT Denies change in voice, Denies dizziness, Denies lip swelling, Denies mouth pain, Reports nasal congestion, Reports nasal discharge, Reports sore throat and Denies tongue swelling Card Denies chest pain Resp Denies chest congestion, Reports cough, Denies hemoptysis, Denies excessive phlegm production, Denies pain on inspiration, Denies pain with cough and Reports wheezing GI Denies abdominal pain Musc Denies no additional complaints Neuro Denies Neuro-related abnormal movements and Denies dizziness Psych Denies no additional complaints Endo Denies fatigue Hrameet/Lymph Denies easy bleeding and Denies lymphadenopathy Aller/Immun Denies lip swelling, Denies tongue swelling and Reports wheezing Physical Exam Vital Signs: Last Vital Signs Pulse 63 03/18/24 09:47 BP 108/72 03/18/24 09:47 Pulse Ox 98 03/18/24 09:47 Oxygen Delivery Method Room Air 03/18/24 09:47 BMI result Body Mass Index 33.7 Const General: alert Neck Neck: Yes normal visual inspection, Yes full ROM and Yes no lymphadenopathy Chest Chest palpation & inspection: normal inspection of the chest Resp Auscultation: no rhonchi, no wheezes and diminished lung sounds Cardio Rate: regular rate Rhythm: regular rhythm Heart sounds: Murmur heart sound present GI Palpation (GI): Soft to palpation and nontender Auscultation: normal bowel sounds Skin General skin exam: rashes and/or lesions noted Assessment & Plan Assessment & Plan (1) Bronchiectasis: Code(s): J47.9 - Bronchiectasis, uncomplicated Category: Medical Qualifiers: Bronchiectasis type: with acute exacerbation Qualified Code(s): J47.1 - Bronchiectasis with (acute) exacerbation (2) Pulmonary nodules: Code(s): R91.8 - Other nonspecific abnormal finding of lung field Category: Medical (3) Asthma: Code(s): J45.909 - Unspecified asthma, uncomplicated Category: Medical Qualifiers: Asthma complication type: uncomplicated Asthma persistence: persistent Asthma severity: moderate Qualified Code(s): J45.40 - Moderate persistent asthma, uncomplicated (4) SANDRA on CPAP: Code(s): G47.33 - Obstructive sleep apnea (adult) (pediatric); Z99.89 - Dependence on other enabling machines and devices Category: Medical (5) CAD (coronary artery disease): Code(s): I25.10 - Atherosclerotic heart disease of [place] coronary artery without angina pectoris Category: Medical Qualifiers: Associated angina: without angina Coronary Disease-Associated Artery/Lesion type: [place] artery [place] vs. transplanted heart: [place] heart Qualified Code(s): I25.10 - Atherosclerotic heart disease of [place] coronary artery without angina pectoris Plan Continue APAP, adjusted pressures 6-14, F20 med mask Continue CPT with nebulized therapy and Acapella valve. Consider percussion vest if worsens Continue Breo 200, short-acting beta agonist as needed CT chest in 6 months Continue Singulair awaiting breast biopsy results Follow-up in 6 months Orders: Orders CT chest wo IV con 6 Months R91.8 - Other nonspecific abnormal finding of lung field Coding Level of Care Code Est Pt Level 4 (20399) Complex EM visit Add On G2211 Diagnoses Bronchiectasis with acute exacerbation J47.1 Bronchiectasis type: with acute exacerbation Pulmonary nodules R91.8 Moderate persistent asthma without complication J45.40 Asthma complication type: uncomplicated Asthma persistence: persistent Asthma severity: moderate SANDRA on CPAP G47.33; Z99.89 Coronary artery disease involving [place] coronary artery of [place] heart without angina pectoris I25.10 Associated angina: without angina Coronary Disease-Associated Artery/Lesion type: [place] artery [place] vs. transplanted heart: [place] heart Time Spent (min) 17
== END 2024-03-18 10:15 | disposition home or self-care (01) ==
PROVIDERS: PCP Nurse Practitioner Family; Visit Provider Hospitalist
DX: J47.1 Bronchiectasis with (acute) exacerbation (principal); R91.8 Other nonspecific abnormal finding of lung field; J45.40 Moderate persistent asthma, uncomplicated; G47.33 Obstructive sleep apnea (adult) (pediatric); Z99.89 Dependence on other enabling machines and devices; I25.10 Atherosclerotic heart disease of native coronary artery without angina pectoris
CPT/HCPCS: 99214; G2211

== ENCOUNTER → 2024-03-18 09:30 | Outpatient (BNVA) | payer OTHER, SELFPAY | PROVIDERS: PCP Nurse Practitioner Family; Visit Provider Hospitalist | DX: J47.1 Bronchiectasis with (acute) exacerbation (principal); J45.40 Moderate persistent asthma, uncomplicated; R91.8 Other nonspecific abnormal finding of lung field; G47.33 Obstructive sleep apnea (adult) (pediatric); I25.10 Atherosclerotic heart disease of native coronary artery without angina pectoris; Z99.89 Dependence on other enabling machines and devices | CPT/HCPCS: 99212 ==

== ENCOUNTER 2024-09-09 09:22 | Outpatient (AMB) | payer OTHER, SELFPAY ==
[2024-09-09 09:23] VITALS: BP 132/62; PULSE 80; O2SAT 96; BMI 32.9
--- NOTE | 2024-09-09 09:23 | A.OFFVIS_ITS ---
Vital Signs 09/09/24 09:23 Height 5 ft 1 in Weight 174 lb BMI 32.9 BP 132/62 Blood Pressure Location Rt brachial Position Sitting Pulse 80 Pulse Source Pulse Oximeter Pulse Oximetry (%) 96 Oxygen Delivery Method Room Air Intake Visit Reasons: Asthma Allergies aspirin Allergy (Mild, Verified 09/09/24 09:28) Hives oxycodone Allergy (Mild, Verified 09/09/24 09:28) Rash GI Upset levofloxacin (From Levaquin) Allergy (Verified 09/09/24 09:28) rash, malaise, nausea- per H&P sertraline Allergy (Verified 09/09/24 09:28) N/V Diarrhea- per H&P Latex Agent Allergy (Mild, Uncoded 03/18/24 09:51) Hives Sulfa Drugs Allergy (Mild, Uncoded 03/18/24 09:51) Upset Stomach HPI Comments Details: The patient is a 79-year-old woman with a known history of pulmonary nodules, obstructive sleep apnea on CPAP in addition to having bariatric surgery. apparently since I saw her she did develop covid 19 infection and was admitted to [facility] initially back in July 21. she was then readmitted back on August 09 with again a positive covid tennis and significant GI symptoms. She did not require any oxygen. We did review her previous CT scan of the chest done here back in February 2019 demonstrating numerous pulmonary nodules along with some bronchiectatic changes in some areas of atelectasis. She continues to have a cough in addition to some shortness of breath. Hejh-qj-bcfkjrjr severity. No significant mucus production. At this point she needs to have a repeat CT scan of the chest. Will have her get 1 in 3 months with her follow-up. In regards to her CPAP the CPAP therapy continues to be Effective in beneficial. She does use her CPAP more than 4 hours a night. He uses a nasal mask. She does complaint of a dry mouth. We did prescribe her a chinstrap during the last visit but she did not know how to use it. Therefore she was instructed how to use it. She has some known bronchiectasis and her previous CT scan. We did talk about potentially consider bronchoscopy. She would like to hold off at this time. Will have blood work done to further address the bronchiectasis. In the meantime she continues use her CPAP. The CPAP therapy continues to be affecting beneficial. She does use it more than 4 hours a night. She still getting dryness of the mouth. Will try to request axis to rest med to try to adjust humidification. 12/23/2022 the patient is has a telehealth visit today. since we last spoke the patient did end up having substernal chest discomfort and was transferred over to [facility] where she was diagnosed with a non ST elevation MN. the patient underwent PCI with stent placement. Subsequently after that the patient did have further evaluation with Cardiology. She apparently has a 70% blockage another artery. She is going to likely have a stress test and then find out if she needs additional stent placements. From a respiratory status the patient is starting to have worsening cough. She has been exposed to family members COVID- 19 although she has not had any fevers or chills and has not tested herself as of yet. I did encourage her to do so. In the meantime she does not want to use prednisone because she was told not to use prednisone while dealing with a cardiac issue. The patient does have a cough which tends to be nonproductive in nature. She also complains of sinus congestion. The patient will go ahead and start her nebulizer treatments with budesonide to avoid prednisone. In addition to that will restart the azithromycin. I did look at her EKG and QT intervals were within normal limits in November. if the patient is no better she will call the office for further evaluation management. 04/25/2023 the patient is here for a pulmonary follow-up visit. Patient now is feeling better. Back in March she did have a flare-up and she was evaluated in office and was given antibiotics and prednisone. She is still using her n ebulizer. Still using her Breo. still, having some chest congestion and wheezing. She is now off the prednisone. Will start her back on nebulized therapy. She can not take muscarinic antagonist because of history of glaucoma. The patient also has been using his CPAP. CPAP therapy has been affecting beneficial she does use it every night. She does use it for more than 4 hours a night. Will request supplies this time. 08/19/2023 the patient is here for a pulmonary follow-up visit. The patient is doing very well. Her asthma seems to be better controlled on the Breo 200. She has not had to use the budesonide which is reassuring. She also has albuterol that she has not required typically does not 2 times a week. She has concerned about the summer months because she has a hard time with breathing. She is going to monitor closely for the air pollution and ground ozone. The patient has been using her CPAP. The CPAP therapy has been affecting beneficial. She has using a fullface mask. Her AHI is down to 1.4. Her pressures are good. She is in 100% compliance. Will going to request additional supplies at this time. The patient returns 6 months or sooner if she has any worsening issues or any new concerns. 09/09/2024 the patient is here for a pulmonary follow-up visit. Overall she is doing worse from a respiratory status. She continues her respiratory medicines with partial effect. Worsening asthma symptoms and wheezing. Using EMLINDA on a daily basis. Hard time tolerating Steroids. Not able to use anticholinergics. We will look into biologic therapy. She also continues her CPAP every night. CPAP therapy has been affecting beneficial. She does use it every night for more than 4 hours. She is already status with CPAP and she can not see herself without it. We also did look at a CT scan of the chest that she had back in 2020 demonstrating significant interstitial lung disease airspace disease in addition to pulmonary nodules. It will be reasonable to repeat a CT scan at this time to further evaluate those changes. [facility] Medical History (Updated 03/11/23 @ 13:46 by Bea Ortiz NP) CAD (coronary artery disease) Bradycardia Glaucoma Dizziness Osteopenia Hx of deep venous thrombosis Back pain Hypothyroid Diabetes Iron deficiency anemia Hx of gastroesophageal reflux (GERD) History of stomach cancer History of anxiety History of depression High cholesterol Hypertension Bronchiectasis COVID-19 Pulmonary nodules Asthma SANDRA on CPAP Surgical History History of thyroid surgery S/P laparoscopic-assisted sigmoidectomy History of partial gastrectomy Hx of colonoscopy Family History (Updated 12/23/19 @ 21:54 by Elliot Hammer MD) Father No problems noted. Social History Are you a primary doggy daycare activities director to a significant other at home: No Do you presently have visiting nurse or other home services: No Patient Tobacco Use Status: Former Tobacco user Tobacco use type: Cigarette Years Smoked: 15 years Review of Systems Const Denies fatigue, Denies fever(s) and Denies night sweats ENT Denies change in voice, Denies dizziness, Denies lip swelling, Denies mouth pain, Reports nasal congestion, Reports nasal discharge, Reports sore throat and Denies tongue swelling Card Denies chest pain Resp Denies chest congestion, Reports cough, Denies hemoptysis, Denies excessive phlegm production, Denies pain on inspiration, Denies pain with cough and Reports wheezing GI Denies abdominal pain Musc Denies no additional complaints Neuro Denies Neuro-related abnormal movements and Denies dizziness Psych Denies no additional complaints Endo Denies fatigue Harmeet/Lymph Denies easy bleeding and Denies lymphadenopathy Aller/Immun Denies lip swelling, Denies tongue swelling and Reports wheezing Physical Exam Vital Signs: Last Vital Signs Pulse 80 09/09/24 09:23 BP 132/62 09/09/24 09:23 Pulse Ox 96 09/09/24 09:23 Oxygen Delivery Method Room Air 09/09/24 09:23 BMI result Body Mass Index 32.9 Const General: alert Neck Neck: Yes normal visual inspection, Yes full ROM and Yes no lymphadenopathy Chest Chest palpation & inspection: normal inspection of the chest Resp Auscultation: no rhonchi, no wheezes and diminished lung sounds Cardio Rate: regular rate Rhythm: regular rhythm Heart sounds: Murmur heart sound present GI Palpation (GI): Soft to palpation and nontender Auscultation: normal bowel sounds Skin General skin exam: rashes and/or lesions noted Assessment & Plan Assessment & Plan (1) Bronchiectasis: Code(s): J47.9 - Bronchiectasis, uncomplicated Category: Medical Qualifiers: Bronchiectasis type: with acute exacerbation Qualified Code(s): J47.1 - Bronchiectasis with (acute) exacerbation (2) Pulmonary nodules: Code(s): R91.8 - Other nonspecific abnormal finding of lung field Category: Medical (3) Asthma: Code(s): J45.909 - Unspecified asthma, uncomplicated Category: Medical Qualifiers: Asthma complication type: uncomplicated Asthma persistence: persistent Asthma severity: moderate Qualified Code(s): J45.40 - Moderate persistent asthma, uncomplicated (4) SANDRA on CPAP: Code(s): G47.33 - Obstructive sleep apnea (adult) (pediatric); Z99.89 - Dependence on other enabling machines and devices Category: Medical (5) CAD (coronary artery disease): Code(s): I25.10 - Atherosclerotic heart disease of [place] coronary artery without angina pectoris Category: Medical Qualifiers: Associated angina: without angina Coronary Disease-Associated Artery/Lesion type: [place] artery [place] vs. transplanted heart: [place] heart Qualified Code(s): I25.10 - Atherosclerotic heart disease of [place] coronary artery without angina pectoris Plan Continue APAP, adjusted pressures 6-14, F20 med mask Continue CPT with nebulized therapy and Acapella valve. Consider percussion vest if worsens Continue Breo 200, No UNIQUE/LAMA due to glaucoma short-acting beta agonist as needed Continue Singulair Bloodwork, ?biologic therapy Follow-up in 6 months Orders: Orders Complete Blood Count Auto Diff 09/09/24 J45.40 - Moderate persistent asthma, uncomplicated Immunoglobulin E 09/09/24 J45.40 - Moderate persistent asthma, uncomplicated Erythrocyte Sedimentation Rate 09/09/24 J45.40 - Moderate persistent asthma, uncomplicated Coding Level of Care Code Est Pt Level 4 (56239) Complex EM visit Add On G2211 Diagnoses Bronchiectasis with acute exacerbation J47.1 Bronchiectasis type: with acute exacerbation Pulmonary nodules R91.8 Moderate persistent asthma without complication J45.40 Asthma complication type: uncomplicated Asthma persistence: persistent Asthma severity: moderate SANDRA on CPAP G47.33; Z99.89 Coronary artery disease involving [place] coronary artery of [place] heart without angina pectoris I25.10 Associated angina: without angina Coronary Disease-Associated Artery/Lesion type: [place] artery [place] vs. transplanted heart: [place] heart Time Spent (min) 16
--- OUTSIDE RECORDS SUMMARY | 2024-09-09 09:40 | XMS_ITS | Clinical Summary ---
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 Name Role Phone LaineIvania ELY Primary Care Provider Allergies Active Allergy Reactions Criticality Noted Date Comments Hydralazine 04/28/2024 Latex Rash Medium 07/14/2014 Levofloxacin Unknown 01/20/2019 Oxycodone-Acetaminophe n GI intolerance,Unknown, Other Medium 07/14/2014 Sertraline Diarrhea,Nausea Only,Nausea And Vomiting 05/11/2024 Spironolactone Hyperkalemia 04/28/2024 Other Reaction(s): hyperkalemia Sulfa (Sulfonamide Antibiotics) Nausea And Vomiting,GI intolerance,Unknown, Rash Medium 07/14/2014 Medications fluticasone propionate (FLONASE) 50 mcg/actuation nasal spray Administer 2 sprays into each nostril if needed. 1 Active fluticasone furoate-vilante roL (Breo Ellipta) 200-25 mcg/dose inhaler Inhale 1 Puff into the lungs daily. Active mirtazapine (REMERON) 30 mg tablet TAKE 1 TABLET BY MOUTH EVERY NIGHT 1 Active montelukast (SINGULAIR) 10 mg tablet Take 10 mg by mouth at bedtime. 1 tablet daily Active amLODIPine (NORVASC) 5 mg tablet Take by mouth 1 (one) time each day. Active traZODone (DESYREL) 50 mg tablet Take 1 tablet (50 mg total) by mouth at bedtime. Active levothyroxine (SYNTHROID, LEVOTHROID) 100 mcg tablet Take by mouth 1 (one) time each day before breakfast. Active calcium carbonate-vitam in D 500 mg-5 mcg (200 unit) per tablet Take 1 tablet by mouth 1 (one) time each day. Active ascorbic acid (VITAMIN C) 500 mg tablet Take 1 tablet (500 mg total) by mouth 1 (one) time each day. Active cholecalciferol (VITAMIN D-3) 25 mcg (1,000 unit) tablet Take 1 tablet (1,000 Units total) by mouth 1 (one) time each day. Active atorvastatin (LIPITOR) 80 mg tablet Take 1 tablet (80 mg total) by mouth at bedtime. Active famotidine (PEPCID) 20 mg tablet Take by mouth 1 (one) time each day. Active cloNIDine (OOIQPNAU-IVK-3 ) 0.1 mg/[address] 1 patch on the skin 1 (one) time per week. Active albuterol HFA (PROAIR HFA ; PROVENTIL HFA ; VENTOLIN HFA) 90 mcg/actuation inhaler Inhale 2 puffs by mouth every 6 (six) hours if needed for wheezing. Active aspirin 81 mg chewable tablet Chew 1 tablet (81 mg total) 1 (one) time each day. Active brimonidine (ALPHAGAN P) 0.1 % ophthalmic solution Administer 2 drops into both eyes 2 (two) times a day. Active cyclobenzaprine (FLEXERIL) 5 mg tablet Take by mouth. Activ e chlorthalidone (HYGROTON) 25 mg tablet Take by mouth 1 (one) time each day. Active doxycycline (ADOXA) 100 mg tablet Take 1 tablet (100 mg total) by mouth 2 (two) times a day. Take with a full glass of water and do not lie down for at least 30 minutes after Active zinc acetate/sweetle af (ZINC, ACETATE, LOZENGES ORAL) Take 1 lozenge by mouth 1 (one) time each day. Active predniSONE (DELTASONE) 10 mg tablet Take 1 tablet (10 mg total) by mouth 1 (one) time each day. Taper per instructions Active letrozole (FEMARA) 2.5 mg tablet Take 1 tablet (2.5 mg total) by mouth 1 (one) time each day Take with or without food. 90 tablet 3 5 07/28/19 26 Active Active Problems Problem Noted Date Diagnosed Date Diverticulosis 05/11/2024 Acute gastritis 05/11/2024 Overview (05/11/2024): Dr. Dumont - [place] 2014 Asthma 05/11/2024 Cataract 05/11/2024 Overview (05/11/2024): s/p bilateral cataract surgery Class 1 obesity 05/11/2024 COVID-19 05/11/2024 Heel pain, bilateral 05/11/2024 Hyperparathyroidism ([facility] V24) 05/11/2024 Hypothyroidism 05/11/2024 Impaired glucose tolerance 05/11/2024 Incontinence 05/11/2024 Overview (05/11/2024): seeing urology Mitral valve stenosis 05/11/2024 Overview (05/11/2024): echo obtained at [facility] 05/12/2020 echo obtained at [facility] 05/12/2020 Moderate persistent asthma with exacerbation 06/2024 Myofascial pain syndrome 05/11/2024 Neuralgia 05/11/2024 Osteoarthritis of knee 05/11/2024 Overview (05/11/2024): left knee treated at [facility] Osteoarthritis of left knee 05/11/2024 Osteopenia 05/11/2024 Overview (05/11/2024): DEXA from [facility] 05/28/07 - Tscores -1.9 lumbar and T score -0.4 hips. 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 Esophageal dysmotility 11/20/2023 Mass of neck 06/03/2023 Overview (08/13/2024): Localized swelling, mass and lump, neck; Note: Date Diagnosed: 06/03/2023 3:20 PM (R22.1) Localized swelling, mass and lump, neck; Note: Date Diagnosed: 06/03/2023 3:20 PM (R22.1) Neck swelling 06/03/2023 Overview (08/13/2024): Localized swelling, mass and lump, neck; Note: Date Diagnosed: 06/03/2023 3:20 PM (R22.1) Localized swelling, mass and lump, neck; Note: Date Diagnosed: 06/03/2023 3:20 PM (R22.1) Leukocytosis 05/26/2023 Overview (08/13/2024): Elevated white blood cell count, unspecified; Note: Date Diagnosed: 05/26/2023 4:52 PM (D72.829) Elevated white blood cell count, unspecified; Note: Date Diagnosed: 05/26/2023 4:52 PM (D72.829) Localized enlarged lymph nodes 05/26/2023 Overview (08/13/2024): Localized enlarged lymph nodes; Note: Date Diagnosed: 05/26/2023 11:39 AM (R59.0) Localized enlarged lymph nodes; Note: Date Diagnosed: 05/26/2023 11:39 AM (R59.0) Deep vein thrombosis (DVT) o f lower extremity (CMS/HCC V24, CMS/HCC V28) 04/24/2023 Overview (08/13/2024): in 07/2014; provoked from surgery in 07/2014; provoked from surgery in 07/2014; provoked from surgery in 07/2014; provoked from surgery Systolic murmur 04/24/2023 Myocardial infarction ([facility] V24, [facility] V28) 11/09/2022 Iron deficiency anemia 11/13/2020 Osteoporosis 11/13/2020 Bilateral impacted cerumen 06/20/2020 Overview (08/13/2024): Impacted cerumen, bilateral; Note: Date Diagnosed: 05/26/2023 11:39 AM (H61.23) Impacted cerumen, bilateral; Note: Date Diagnosed: 05/26/2023 11:39 AM (H61.23) Dizziness and giddiness 06/20/2020 Overview (08/13/2024): Dizziness and giddiness; Note: Date Diagnosed: 06/20/2020 1:05 PM (R42) Dizziness and giddiness; Note: Date Diagnosed: 06/20/2020 1:05 PM (R42) Jaw pain 06/20/2020 Overview (08/13/2024): Jaw pain; Note: Date Diagnosed: 06/20/2020 12:41 PM (R68.84) Jaw pain; Note: Date Diagnosed: 06/20/2020 12:41 PM (R68.84) Sensorineural hearing loss (SNHL) of both ears 0 06/20/2020 Overview (08/13/2024): Sensorineural hearing loss, bilateral; Note: Date Diagnosed: 06/20/2020 1:05 PM (H90.3) Sensorineural hearing loss, bilateral; Note: Date Diagnosed: 06/20/2020 1:05 PM (H90.3) Temporomandibular joint disorder 06/20/2020 Overview (05/11/2024): L>R Acquired complex renal cyst 05/08/2020 Proteinuria 05/08/2020 Hypertension 05/05/2020 Stage 3 chronic kidney disease ([facility], [facility] V28) 05/05/2020 COPD (chronic obstructive pu lmonary disease) ([facility]24, [facility] V28) 03/13/2018 Obstructive sleep apnea syndrome 03/13/2018 Pulmonary nodules 03/13/2018 Incisional hernia 07/14/2014 History of partial surgical removal of colon 03/2014 Overview (05/11/2024): Dr Luisa Ocampo Resolved Problems Problem Noted Date Diagnosed Date Resolved Date Malignant neoplasm of breast ([facility] V24, [facility] V28) 05/11/2024 05/27/2024 Overview (05/11/2024): low- grade, strongly estrogen receptor positive, strongly progesterone receptor positive, HER2 negative invasive ductal carcinoma. Surgeon Yousif Warren [facility] Encounters Date Type Department Care Team Description 08/17/2024 9:48 AM EDT - 08/17/2024 11:59 PM EDT Hospital Encounter [facility] Radiation Oncology [address] [place] [phone] Milagro Hoover, ELY Carcinoma of lower-outer quadrant of right breast in female, estrogen receptor positive ([facility] V24, [facility] V28) (Primary Dx) Discharge Disposition: Home or Self Care 07/27/2024 10:30 AM EDT Office Visit [facility] Hematology Oncology [address] [place] [phone] Mansoor Lainez MD Carcinoma of lower-outer quadrant of right breast in female, estrogen receptor positive ([facility] V24, [facility] V28) (Primary Dx) 07/13/2024 8:55 AM EDT - 07/13/2024 11:59 PM EDT Hospital Encounter [facility] Radiation Oncology [address] [place] [phone] Milagro Hoover NP Carcinoma of lower-outer quadrant of right breast in female, estrogen receptor positive ([facility] V24, [facility] V28) (Primary Dx) Discharge Disposition: Home or Self Care 07/13/2024 8:45 AM EDT - 07/13/2024 11:59 PM EDT Hospital Encounter [facility] Radiation Oncology [address] [place] [phone] Discharge Disposition: Home or Self Care 07/12/2024 8:43 AM EDT - 07/12/2024 11:59 PM EDT Hospital Encounter [facility] Radiation Oncology [address] [place] [phone] Discharge Disposition: Home or Self Care 07/09/2024 8:53 AM EDT - 07/09/2024 11:59 PM EDT Hospital Encounter [facility] Radiation Oncology [address] [place] [phone] Stephanie Lozano MD Carcinoma of lower-outer quadrant of right breast in female, estrogen receptor positive (CMS/HCC V24, CMS/HCC V28) (Primary Dx) Discharge Disposition: Home or Self Care 07/09/2024 8:47 AM EDT - 07/09/2024 11:59 PM EDT Hospital Encounter [facility] Radiation Oncology [address] [place] [phone] Discharge Disposition: Home or Self Care 07/08/2024 8:47 AM EDT - 07/08/2024 11:59 PM EDT Hospital Encounter [facility] Radiation Oncology [address] [place] [phone] Discharge Disposition: Home or Self Care 07/07/2024 8:48 AM EDT - 07/07/2024 11:59 PM EDT Hospital Encounter [facility] Radiation Oncology [address] [place] [phone] Discharge Disposition: Home or Self Care 07/06/2024 9:01 AM EDT - 07/06/2024 11:59 PM EDT Hospital Encounter [facility] Radiation Oncology [address] [place] [phone] Discharge Disposition: Home or Self Care 07/05/2024 8:52 AM EDT - 07/05/2024 11:59 PM EDT Hospital Encounter [facility] Radiation Oncology [address] [place] [phone] Discharge Disposition: Home or Self Care 07/02/2024 9:50 AM EDT - 07/02/2024 11:59 PM EDT Hospital Encounter [facility] Radiation Oncology [address] [place] [phone] Stephanie Lozano MD Carcinoma of lower-outer quadrant of right breast in female, estrogen receptor positive (CMS/HCC V24, CMS/HCC V28) (Primary Dx) Discharge Disposition: Home or Self Care 07/02/2024 9:35 AM EDT - 07/02/2024 11:59 PM EDT Hospital Encounter [facility] Radiation Oncology [address] [place] [phone] Discharge Disposition: Home or Self Care 07/01/2024 8:52 AM EDT - 07/01/2024 11:59 PM EDT Hospital Encounter [facility] Radiation Oncology [address] [place] [phone] Discharge Disposition: Home or Self Care 06/30/2024 8:51 AM EDT - 06/30/2024 11:59 PM EDT Hospital Encounter [facility] Radiation Oncology [address] [place] [phone] Discharge Disposition: Home or Self Care 06/29/2024 8:55 AM EDT - 06/29/2024 11:59 PM EDT Hospital Encounter [facility] Radiation Oncology [address] [place] [phone] Discharge Disposition: Home or Self Care 06/28/2024 9:03 AM EDT - 06/28/2024 11:59 PM EDT Hospital Encounter [facility] Radiation Oncology [address] [place] [phone] Discharge Disposition: Home or Self Care 06/25/2024 9:07 AM EDT - 06/25/2024 11:59 PM EDT Hospital Encounter [facility] Radiation Oncology [address] [place] [phone] Noel Sorenson MD Discharge Disposition: Home or Self Care 06/25/2024 8:53 AM EDT - 06/25/2024 11:59 PM EDT Hospital Encounter [facility] Radiation Oncology [address] [place] [phone] Discharge Disposition: Home or Self Care 06/24/2024 9:01 AM EDT - 06/24/2024 11:59 PM EDT Hospital Encounter [facility] Radiation Oncology [address] [place] [phone] Discharge Disposition: Home or Self Care 06/23/2024 9:08 AM EDT - 06/23/2024 11:59 PM EDT Hospital Encounter [facility] Radiation Oncology [address] [place] [phone] Discharge Disposition: Home or Self Care 06/22/2024 11:15 AM EDT - 06/22/2024 11:59 PM EDT Hospital Encounter [facility] Radiation Oncology [address] [place] [phone] Noel Sorenson MD Discharge Disposition: Home or Self Care 06/22/2024 11:00 AM EDT - 06/22/2024 11:59 PM EDT Hospital Encounter [facility] Radiation Oncology [address] [place] [phone] Discharge Disposition: Home or Self Care 06/18/2024 10:40 AM EDT - 06/18/2024 11:59 PM EDT Hospital Encounter [facility] Radiation Oncology [address] [place] [phone] Discharge Disposition: Home or Self Care 06/15/2024 9:35 AM EDT - 06/15/2024 11:59 PM EDT Hospital Encounter [facility] Radiation Oncology [address] [place] [phone] Stephanie Lozano MD Malignant neoplasm of upper-outer quadrant of right breast in female, estrogen receptor positive (CMS/HCC V24, CMS/HCC V28) Discharge Disposition: Home or Self Care 06/15/2024 9:12 AM EDT - 06/15/2024 11:59 PM EDT Hospital Encounter [facility] Radiation Oncology [address] [place] [phone] Discharge Disposition: Home or Self Care from Last 3 Months Immunizations Name Administration Dates Next Due Diptheria & Tetanus, 6wks to less than 7yo 06/15/2008 Hepatitis B (Lcyuzab-H-Klqvc , Recombivax HB-Adult) 19yo and older 12/18/2016 Influenza trivalent, 0.5mL ( Fluad) 65yo and older 12/01/2023 Influenza trivalent, with pr eservative (Fluzone; Afluria) 6mo and older 12/03/2022,12/18/2021,12/25/2020,10/21,12/03/2017,01/01/2017,12/14/2014 ,12/28/2013,11/18/2011,01/04/2011,07/2009,01/16/2007,01/23/2006 Pneumococcal conjugate 13 va lent (Prevnar 13, PCV13) 2mo and older 02/07/2015 Pneumococcal conjugate 20 va lent (Prevnar 20, PCV 20) 2mo and older 08/19/2023 Pneumococcal polysaccharide 23 valent (Pneumovax 23) 2yo and older 11/12/2013 RSV, bivalent, protein subun it RSVpreF, 0.5mL, Preservative Free (Arexvy) 60yo and older 01/01/2024 SARS-COV-2 (COVID-19) Vaccin e, Unspecified 12/20/2021 Tdap Tetanus diptheria acell ular pertussis (Boostrix; Adacel) 7yo and older 11/30/2021 Zoster Live 09/17/2011 Zoster recombinant (Shingrix ) 19yo and older 01/01/2024 Surgical History Surgery Date Site/Laterality Comments OTHER SURGICAL HISTORY PROCEDURE: [place] RPR EPIGASTRIC HERNIA REDUCIBLE SPX OTHER SURGICAL HISTORY PROCEDURE: INCISION OF ANAL FISTULA; COMMENT: DR Moran HYSTERECTOMY PROCEDURE: HISTORICAL HYSTERECTOMY; COMMENT: Dr. Yi HERNIA REPAIR Right INGUINAL CORONARY ANGIOPLASTY WITH STENT PLACEMENT 03/10/2022 - 03/09/2023 Medical History Medical History Date Comments Thyroid disease DX:Thyroid disea se Asthma DX:Asthma HTN (hypertension) DX:HTN (hyper tension) Family history of stomach cancer DX:Family history of stomach cancer Anemia DX:Anemia Heart disease Hyperlipidemia OH (myocardial infarction) ( [facility] V24, [facility] V28) 2022 Sleep apnea Cancer ([facility], [facility] V28) COPD (chronic obstructive pu lmonary disease) ([facility], [facility] V28) Glaucoma GERD (gastroesophageal reflux disease) Iron deficiency anemia Chronic kidney disease Family History Medical History Relation Name Comments Stomach cancer Mother Breast cancer Sister Relation Name Status Comments Father Mother Sister Alive Social History Tobacco Use Types Packs/Day Years Used Date Smoking Tobacco: Former Cigarettes Smokeless Tobacco: Never Tobacco Cessation:Counseling Given: Not Answered Alcohol Use Standard Drinks/Week Comments No 0 (1 standard drink = 0.6 oz pur e alcohol) Interpersonal Safety Answer Date Record ed Physical Abuse 04/13/2024 Verbal Abuse 04/13/2024 Comments No Sex and Gender Information Value Date Recorded Sex Assigned at Female 03/09/2024 9:54 AM EST Legal Sex Female 2:32 PM EST Gender Identity Female 03/09/2024 9:54 AM EST Sexual Orientation Straight 03/09/2024 9: 54 AM EST 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 on file Not on file Not on file Obstetrics History Para Term AB IAB SAB Ectopic Multiple Livin g Live Births 3 3 3 Date Outcome GA Total Labor Labor/2nd/3rd Weight Sex Type Anes PTL Roxy A1 A5 Name Clin Para Para Para Last Filed Vital Signs Vital Sign Reading Time Taken Comments Blood Pressure 128/58 08/17/2024 9:51 AM EDT Pulse 71 08/17/2024 9:51 AM EDT Temperature 36.1 C (97 F) 08/17/2024 9:51 AM EDT Respiratory Rate 16 08/17/2024 9:51 AM EDT Oxygen Saturation 97% 08/17/2024 9:51 AM EDT Inhaled Oxygen Concentration - - Weight 79.5 kg (175 lb 3.2 oz) 08/17/2024 9:51 A M EDT Height 154.9 cm (5' 1 ) 05/19/2024 9:47 AM EDT Body Mass Index 33.1 05/19/2024 9:47 AM EDT Plan of Treatment Upcoming Encounters Date Type Department Care Team (Late st Contact Info) Description 09/27/2024 10:15 AM EDT Office Visit [facility] Hematology Oncology [address] [place] [phone] Mansoor Lainez MD [address] [place] [phone] 10/27/2024 10:20 AM EDT Office Visit [facility] [address] [facility] [address] [place] [phone] Yousif Warren MD [address] [facility] [address] [place], [place] [phone] Health Maintenance Due Date Last Done Comments Hepatitis B Vaccines (2 of 3 - 19+ 3-dose series) 01/15/2017 12/18/2016 Cholesterol Screening (Lipid Panel) 02/06/2022 Depression Screening 02/06/2022 Falls Risk Assessment 02/06/2022 Hepatitis C Screening 02/06/2022 Medicare Annual Wellness Visit 02/06/2022 Social Influencers of Health Screening 02/06/2022 COVID-19 Vaccine ( season) 2023 12/20/2021, 03/23/2021, 05/08/2020, Additional history exists Zoster Vaccines (2 of 2) 02/26/2024 01/01/2024, 09/07 Hypertension/CHF/CAD Annual BMP Blood Test 04/27/2025 04/27/2024, 04/27/2024, 10/24/2023 DTaP,Tdap,and Td Vaccines (3 - Td or Tdap) 12/01/2031 11/30/2021, 06/15/2008 Osteoporosis Screening (Bone Density Screening) 05/20/2034 05/20/2024 Pneumococcal Vaccine: 50+ Years Completed 08/19/2023, 02/07/2015, 11/12/2013 Influenza Vaccine Completed 12/01/2023, , 12/18/2021, Additional history exists RSV Immunization Adult Patients Completed 01/01/2024 HIB Vaccines Aged Out No longer eligi ble based on patient's age to complete this topic HPV Vaccines Aged Out No longer eligi ble based on patient's age to complete this topic Hepatitis A Vaccines Aged Out No long er eligible based on patient's age to complete this topic IPV Vaccines Aged Out No longer eligi ble based on patient's age to complete this topic MMR Vaccines Aged Out No longer eligi ble based on patient's age to complete this topic Meningococcal ACWY Vaccine Aged Out N o longer eligible based on patient's age to complete this topic Meningococcal B Vaccine Aged Out No l onger eligible based on patient's age to complete this topic RSV Immunization Patients Under 20 months Aged Out No longer eligible based on patient's age to complete this topic Varicella Vaccines Aged Out No longer eligible based on patient's age to complete this topic Medical Devices Implanted Type Area Clinical Application Specialist Device Identifier Shelf Expiration Date Model / Serial / Lot Hemostat Flour Collgn 1gm Avitene - Sn/A - [id number] Implanted:Qty: 1 on 04/13/2024 by Yousif Warren MD at [facility] Hemostasis Right: Breast CR BARD - DAVOL DIV [id number] / N/A / N/A Marker Tissue Breast Dual Trig 17x10 Ultrasound Enhanced - [id number] - [id number] Implanted:Qty: 1 on 03/17/2024 by Delta Guzman MD at [facility] Imaging Implants Right: Breast CR BARD PERIPHERAL VASCULAR [id number] 11/04/2026 [id number] / [id number] / Marker 18ga Magseed 7cm - [id number] - [id number] Implanted:Qty: 1 on 04/12/2024 at [facility] Imaging Implants Right: Breast [employer] [id number] 09/06/2025 [id number] / [id number] / [id number] Procedures Procedure Name Priority Date/Time Associated Diagnosis Comments RAD ONC MSQ TREATMENT SUMMARY Routine 07/13/2024 8:54 AM EDT RAD ONC MSQ TREATMENT SUMMARY Routine 07/12/2024 8:52 AM EDT RAD ONC MSQ TREATMENT SUMMARY Routine 07/09/2024 8:53 AM EDT RAD ONC MSQ TREATMENT SUMMARY Routine 07/08/2024 8:55 AM EDT RAD ONC MSQ TREATMENT SUMMARY Routine 07/07/2024 8:55 AM EDT RAD ONC MSQ TREATMENT SUMMARY Routine 07/06/2024 9:09 AM EDT RAD ONC MSQ TREATMENT SUMMARY Routine 07/05/2024 9:06 AM EDT RAD ONC MSQ TREATMENT SUMMARY Routine 07/02/2024 9:50 AM EDT RAD ONC MSQ TREATMENT SUMMARY Routine 07/01/2024 9:02 AM EDT RAD ONC MSQ TREATMENT SUMMARY Routine 06/30/2024 9:06 AM EDT RAD ONC MSQ TREATMENT SUMMARY Routine 06/29/2024 9:17 AM EDT RAD ONC MSQ TREATMENT SUMMARY Routine 06/28/2024 9:13 AM EDT RAD ONC MSQ TREATMENT SUMMARY Routine 06/25/2024 9:06 AM EDT RAD ONC MSQ TREATMENT SUMMARY Routine 06/24/2024 9:10 AM EDT RAD ONC MSQ TREATMENT SUMMARY Routine 06/23/2024 9:20 AM EDT RAD ONC MSQ TREATMENT SUMMARY Routine 06/22/2024 11:33 AM EDT BD BONE DENSITY DXA AXIAL SKELETON Routine 05/20/2024 9:44 AM EDT Infiltrating ductal carcinoma of right breast (CMS/HCC V24, CMS/HCC V28) Postmenopausal from Last 3 Months or Most Recently Relevant to Health Maintenance Results * Rad Onc Msq Treatment Summary (07/13/2024 8:54 AM EDT) Treatment Site Right Breast MO SAIQ RADIATION ONCOLOGY Course Number 1 MOSAIQ RADIATION ONCOLOGY Prescribed Fractional Dose 267 cGray MOSAIQ RADIATION ONCOLOGY Prescribed Total Dose 4,272 cGray MOSAIQ RADIATION ONCOLOGY Actual Fractions Delivered 16 MOSAIQ RADIATION ONCOLOGY Prescription Pattern Comment no boost MOSAIQ RADIATION ONCOLOGY Actual Session Delivered Dose 267 cGray MOSAIQ RADIATION ONCOLOGY Actual Total Dose 4,272 cGray MOSAIQ RADIATION ONCOLOGY Prescribed Technique Tangents MOSAIQ RADIATION ONCOLOGY Elapsed Days 21 MOSAIQ RADIATION ONCOLOGY Start Date 06/22/2024 MOSAIQ RADIATION ONCOLOGY Last Date 07/13/2024 MOSAIQ RADIATION ONCOLOGY Prescribed Number of Fractions 16 MOSAIQ RADIATION ONCOLOGY 07/13/2024 8:54 AM EDT Physician Radiation Oncology RADIATION ONCMARY BETH GY ORDERABLES Final Result MOSAIQ RADIATION ONCOLOGY * Rad Onc Msq Treatment Summary (07/12/2024 8:52 AM EDT) Treatment Site Right Breast MO SAIQ RADIATION ONCOLOGY Course Number 1 MOSAIQ RADIATION ONCOLOGY Prescribed Fractional Dose 267 cGray MOSAIQ RADIATION ONCOLOGY Prescribed Total Dose 4,272 cGray MOSAIQ RADIATION ONCOLOGY Actual Fractions Delivered 15 MOSAIQ RADIATION ONCOLOGY Prescription Pattern Comment no boost MOSAIQ RADIATION ONCOLOGY Actual Session Delivered Dose 267 cGray MOSAIQ RADIATION ONCOLOGY Actual Total Dose 4,005 cGray MOSAIQ RADIATION ONCOLOGY Prescribed Technique Tangents MOSAIQ RADIATION ONCOLOGY Elapsed Days 20 MOSAIQ RADIATION ONCOLOGY Start Date 06/22/2024 MOSAIQ RADIATION ONCOLOGY Last Date 07/12/2024 MOSAIQ RADIATION ONCOLOGY Prescribed Number of Fractions 16 MOSAIQ RADIATION ONCOLOGY 07/12/2024 8:52 AM EDT Physician Radiation Oncology RADIATION ONCMARY BETH GY ORDERABLES Final Result MOSAIQ RADIATION ONCOLOGY * Rad Onc Msq Treatment Summary (07/09/2024 8:53 AM EDT) Treatment Site Right Breast MO SAIQ RADIATION ONCOLOGY Course Number 1 MOSAIQ RADIATION ONCOLOGY Prescribed Fractional Dose 267 cGray MOSAIQ RADIATION ONCOLOGY Prescribed Total Dose 4,272 cGray MOSAIQ RADIATION ONCOLOGY Actual Fractions Delivered 14 MOSAIQ RADIATION ONCOLOGY Prescription Pattern Comment no boost MOSAIQ RADIATION ONCOLOGY Actual Session Delivered Dose 267 cGray MOSAIQ RADIATION ONCOLOGY Actual Total Dose 3,738 cGray MOSAIQ RADIATION ONCOLOGY Prescribed Technique Tangents MOSAIQ RADIATION ONCOLOGY Elapsed Days 17 MOSAIQ RADIATION ONCOLOGY Start Date 06/22/2024 MOSAIQ RADIATION ONCOLOGY Last Date 07/09/2024 MOSAIQ RADIATION ONCOLOGY Prescribed Number of Fractions 16 MOSAIQ RADIATION ONCOLOGY 07/09/2024 8:53 AM EDT Physician Radiation Oncology RADIATION ONCMARY BETH GY ORDERABLES Final Result MOSAIQ RADIATION ONCOLOGY * Rad Onc Msq Treatment Summary (07/08/2024 8:55 AM EDT) Treatment Site Right Breast MO SAIQ RADIATION ONCOLOGY Course Number 1 MOSAIQ RADIATION ONCOLOGY Prescribed Fractional Dose 267 cGray MOSAIQ RADIATION ONCOLOGY Prescribed Total Dose 4,272 cGray MOSAIQ RADIATION ONCOLOGY Actual Fractions Delivered 13 MOSAIQ RADIATION ONCOLOGY Prescription Pattern Comment no boost MOSAIQ RADIATION ONCOLOGY Actual Session Delivered Dose 267 cGray MOSAIQ RADIATION ONCOLOGY Actual Total Dose 3,471 cGray MOSAIQ RADIATION ONCOLOGY Prescribed Technique Tangents MOSAIQ RADIATION ONCOLOGY Elapsed Days 16 MOSAIQ RADIATION ONCOLOGY Start Date 06/22/2024 MOSAIQ RADIATION ONCOLOGY Last Date 07/08/2024 MOSAIQ RADIATION ONCOLOGY Prescribed Number of Fractions 16 MOSAIQ RADIATION ONCOLOGY 07/08/2024 8:55 AM EDT Physician Radiation Oncology RADIATION ONCMARY BETH GY ORDERABLES Final Result MOSAIQ RADIATION ONCOLOGY * Rad Onc Msq Treatment Summary (07/07/2024 8:55 AM EDT) Treatment Site Right Breast MO SAIQ RADIATION ONCOLOGY Course Number 1 MOSAIQ RADIATION ONCOLOGY Prescribed Fractional Dose 267 cGray MOSAIQ RADIATION ONCOLOGY Prescribed Total Dose 4,272 cGray MOSAIQ RADIATION ONCOLOGY Actual Fractions Delivered 12 MOSAIQ RADIATION ONCOLOGY Prescription Pattern Comment no boost MOSAIQ RADIATION ONCOLOGY Actual Session Delivered Dose 267 cGray MOSAIQ RADIATION ONCOLOGY Actual Total Dose 3,204 cGray MOSAIQ RADIATION ONCOLOGY Prescribed Technique Tangents MOSAIQ RADIATION ONCOLOGY Elapsed Days 15 MOSAIQ RADIATION ONCOLOGY Start Date 06/22/2024 MOSAIQ RADIATION ONCOLOGY Last Date 07/07/2024 MOSAIQ RADIATION ONCOLOGY Prescribed Number of Fractions 16 MOSAIQ RADIATION ONCOLOGY 07/07/2024 8:55 AM EDT Physician Radiation Oncology RADIATION ONCMARY BETH GY ORDERABLES Final Result MOSAIQ RADIATION ONCOLOGY * Rad Onc Msq Treatment Summary (07/06/2024 9:09 AM EDT) Treatment Site Right Breast MO SAIQ RADIATION ONCOLOGY Course Number 1 MOSAIQ RADIATION ONCOLOGY Prescribed Fractional Dose 267 cGray MOSAIQ RADIATION ONCOLOGY Prescribed Total Dose 4,272 cGray MOSAIQ RADIATION ONCOLOGY Actual Fractions Delivered 11 MOSAIQ RADIATION ONCOLOGY Prescription Pattern Comment no boost MOSAIQ RADIATION ONCOLOGY Actual Session Delivered Dose 267 cGray MOSAIQ RADIATION ONCOLOGY Actual Total Dose 2,937 cGray MOSAIQ RADIATION ONCOLOGY Prescribed Technique Tangents MOSAIQ RADIATION ONCOLOGY Elapsed Days 14 MOSAIQ RADIATION ONCOLOGY Start Date 06/22/2024 MOSAIQ RADIATION ONCOLOGY Last Date 07/06/2024 MOSAIQ RADIATION ONCOLOGY Prescribed Number of Fractions 16 MOSAIQ RADIATION ONCOLOGY 07/06/2024 9:09 AM EDT Physician Radiation Oncology RADIATION XAVIER GY ORDERABLES Final Result Performing Organization Address [facility]/ZIP Co de Phone Number MOSAIQ RADIATION ONCOLOGY * Rad Onc Msq Treatment Summary (07/05/2024 9:06 AM EDT) Treatment Site Right Breast MO SAIQ RADIATION ONCOLOGY Course Number 1 MOSAIQ RADIATION ONCOLOGY Prescribed Fractional Dose 267 cGray MOSAIQ RADIATION ONCOLOGY Prescribed Total Dose 4,272 cGray MOSAIQ RADIATION ONCOLOGY Actual Fractions Delivered 10 MOSAIQ RADIATION ONCOLOGY Prescription Pattern Comment no boost MOSAIQ RADIATION ONCOLOGY Actual Session Delivered Dose 267 cGray MOSAIQ RADIATION ONCOLOGY Actual Total Dose 2,670 cGray MOSAIQ RADIATION ONCOLOGY Prescribed Technique Tangents MOSAIQ RADIATION ONCOLOGY Elapsed Days 13 MOSAIQ RADIATION ONCOLOGY Start Date 06/22/2024 MOSAIQ RADIATION ONCOLOGY Last Date 07/05/2024 MOSAIQ RADIATION ONCOLOGY Prescribed Number of Fractions 16 MOSAIQ RADIATION ONCOLOGY 07/05/2024 9:06 AM EDT Physician Radiation Oncology RADIATION ONCOLO GY ORDERABLES Final Result MOSAIQ RADIATION ONCOLOGY * Rad Onc Msq Treatment Summary (07/02/2024 9:50 AM EDT) Treatment Site Right Breast MO SAIQ RADIATION ONCOLOGY Course Number 1 MOSAIQ RADIATION ONCOLOGY Prescribed Fractional Dose 267 cGray MOSAIQ RADIATION ONCOLOGY Prescribed Total Dose 4,272 cGray MOSAIQ RADIATION ONCOLOGY Actual Fractions Delivered 9 MOSAIQ RADIATION ONCOLOGY Prescription Pattern Comment no boost MOSAIQ RADIATION ONCOLOGY Actual Session Delivered Dose 267 cGray MOSAIQ RADIATION ONCOLOGY Actual Total Dose 2,403 cGray MOSAIQ RADIATION ONCOLOGY Prescribed Technique Tangents MOSAIQ RADIATION ONCOLOGY Elapsed Days 10 MOSAIQ RADIATION ONCOLOGY Start Date 06/22/2024 MOSAIQ RADIATION ONCOLOGY Last Date 07/02/2024 MOSAIQ RADIATION ONCOLOGY Prescribed Number of Fractions 16 MOSAIQ RADIATION ONCOLOGY 07/02/2024 9:50 AM EDT Physician Radiation Oncology RADIATION ONCOLO GY ORDERABLES Final Result MOSAIQ RADIATION ONCOLOGY * Rad Onc Msq Treatment Summary (07/01/2024 9:02 AM EDT) Treatment Site Right Breast MO SAIQ RADIATION ONCOLOGY Course Number 1 MOSAIQ RADIATION ONCOLOGY Prescribed Fractional Dose 267 cGray MOSAIQ RADIATION ONCOLOGY Prescribed Total Dose 4,272 cGray MOSAIQ RADIATION ONCOLOGY Actual Fractions Delivered 8 MOSAIQ RADIATION ONCOLOGY Prescription Pattern Comment no boost MOSAIQ RADIATION ONCOLOGY Actual Session Delivered Dose 267 cGray MOSAIQ RADIATION ONCOLOGY Actual Total Dose 2,136 cGray MOSAIQ RADIATION ONCOLOGY Prescribed Technique Tangents MOSAIQ RADIATION ONCOLOGY Elapsed Days 9 MOSAIQ RADIATION ONCOLOGY Start Date 06/22/2024 MOSAIQ RADIATION ONCOLOGY Last Date 07/01/2024 MOSAIQ RADIATION ONCOLOGY Prescribed Number of Fractions 16 MOSAIQ RADIATION ONCOLOGY 07/01/2024 9:02 AM EDT Physician Radiation Oncology RADIATION ONCOLO GY ORDERABLES Final Result MOSAIQ RADIATION ONCOLOGY * Rad Onc Msq Treatment Summary (06/30/2024 9:06 AM EDT) Treatment Site Right Breast MO SAIQ RADIATION ONCOLOGY Course Number 1 MOSAIQ RADIATION ONCOLOGY Prescribed Fractional Dose 267 cGray MOSAIQ RADIATION ONCOLOGY Prescribed Total Dose 4,272 cGray MOSAIQ RADIATION ONCOLOGY Actual Fractions Delivered 7 MOSAIQ RADIATION ONCOLOGY Prescription Pattern Comment no boost MOSAIQ RADIATION ONCOLOGY Actual Session Delivered Dose 267 cGray MOSAIQ RADIATION ONCOLOGY Actual Total Dose 1,869 cGray MOSAIQ RADIATION ONCOLOGY Prescribed Technique Tangents MOSAIQ RADIATION ONCOLOGY Elapsed Days 8 MOSAIQ RADIATION ONCOLOGY Start Date 06/22/2024 MOSAIQ RADIATION ONCOLOGY Last Date 06/30/2024 MOSAIQ RADIATION ONCOLOGY Prescribed Number of Fractions 16 MOSAIQ RADIATION ONCOLOGY 06/30/2024 9:06 AM EDT Physician Radiation Oncology RADIATION ONCOLO GY ORDERABLES Final Result MOSAIQ RADIATION ONCOLOGY * Rad Onc Msq Treatment Summary (06/29/2024 9:17 AM EDT) Treatment Site Right Breast MO SAIQ RADIATION ONCOLOGY Course Number 1 MOSAIQ RADIATION ONCOLOGY Prescribed Fractional Dose 267 cGray MOSAIQ RADIATION ONCOLOGY Prescribed Total Dose 4,272 cGray MOSAIQ RADIATION ONCOLOGY Actual Fractions Delivered 6 MOSAIQ RADIATION ONCOLOGY Prescription Pattern Comment no boost MOSAIQ RADIATION ONCOLOGY Actual Session Delivered Dose 267 cGray MOSAIQ RADIATION ONCOLOGY Actual Total Dose 1,602 cGray MOSAIQ RADIATION ONCOLOGY Prescribed Technique Tangents MOSAIQ RADIATION ONCOLOGY Elapsed Days 7 MOSAIQ RADIATION ONCOLOGY Start Date 06/22/2024 MOSAIQ RADIATION ONCOLOGY Last Date 06/29/2024 MOSAIQ RADIATION ONCOLOGY Prescribed Number of Fractions 16 MOSAIQ RADIATION ONCOLOGY 06/29/2024 9:17 AM EDT Physician Radiation Oncology RADIATION ONCMARY BETH GY ORDERABLES Final Result MOSAIQ RADIATION ONCOLOGY * Rad Onc Msq Treatment Summary (06/28/2024 9:13 AM EDT) Treatment Site Right Breast MO SAIQ RADIATION ONCOLOGY Course Number 1 MOSAIQ RADIATION ONCOLOGY Prescribed Fractional Dose 267 cGray MOSAIQ RADIATION ONCOLOGY Prescribed Total Dose 4,272 cGray MOSAIQ RADIATION ONCOLOGY Actual Fractions Delivered 5 MOSAIQ RADIATION ONCOLOGY Prescription Pattern Comment no boost MOSAIQ RADIATION ONCOLOGY Actual Session Delivered Dose 267 cGray MOSAIQ RADIATION ONCOLOGY Actual Total Dose 1,335 cGray MOSAIQ RADIATION ONCOLOGY Prescribed Technique Tangents MOSAIQ RADIATION ONCOLOGY Elapsed Days 6 MOSAIQ RADIATION ONCOLOGY Start Date 06/22/2024 MOSAIQ RADIATION ONCOLOGY Last Date 06/28/2024 MOSAIQ RADIATION ONCOLOGY Prescribed Number of Fractions 16 MOSAIQ RADIATION ONCOLOGY 06/28/2024 9:13 AM EDT Physician Radiation Oncology RADIATION ONCMARY BETH GY ORDERABLES Final Result MOSAIQ RADIATION ONCOLOGY * Rad Onc Msq Treatment Summary (06/25/2024 9:06 AM EDT) Treatment Site Right Breast MO SAIQ RADIATION ONCOLOGY Course Number 1 MOSAIQ RADIATION ONCOLOGY Prescribed Fractional Dose 267 cGray MOSAIQ RADIATION ONCOLOGY Prescribed Total Dose 4,272 cGray MOSAIQ RADIATION ONCOLOGY Actual Fractions Delivered 4 MOSAIQ RADIATION ONCOLOGY Prescription Pattern Comment no boost MOSAIQ RADIATION ONCOLOGY Actual Session Delivered Dose 267 cGray MOSAIQ RADIATION ONCOLOGY Actual Total Dose 1,068 cGray MOSAIQ RADIATION ONCOLOGY Prescribed Technique Tangents MOSAIQ RADIATION ONCOLOGY Elapsed Days 3 MOSAIQ RADIATION ONCOLOGY Start Date 06/22/2024 MOSAIQ RADIATION ONCOLOGY Last Date 06/25/2024 MOSAIQ RADIATION ONCOLOGY Prescribed Number of Fractions 16 MOSAIQ RADIATION ONCOLOGY 06/25/2024 9:06 AM EDT Physician Radiation Oncology RADIATION ONCMARY BETH GY ORDERABLES Final Result MOSAIQ RADIATION ONCOLOGY * Rad Onc Msq Treatment Summary (06/24/2024 9:10 AM EDT) Treatment Site Right Breast MO SAIQ RADIATION ONCOLOGY Course Number 1 MOSAIQ RADIATION ONCOLOGY Prescribed Fractional Dose 267 cGray MOSAIQ RADIATION ONCOLOGY Prescribed Total Dose 4,272 cGray MOSAIQ RADIATION ONCOLOGY Actual Fractions Delivered 3 MOSAIQ RADIATION ONCOLOGY Prescription Pattern Comment no boost MOSAIQ RADIATION ONCOLOGY Actual Session Delivered Dose 267 cGray MOSAIQ RADIATION ONCOLOGY Actual Total Dose 801 cGray MOSAIQ RADIATION ONCOLOGY Prescribed Technique Tangents MOSAIQ RADIATION ONCOLOGY Elapsed Days 2 MOSAIQ RADIATION ONCOLOGY Start Date 06/22/2024 MOSAIQ RADIATION ONCOLOGY Last Date 06/24/2024 MOSAIQ RADIATION ONCOLOGY Prescribed Number of Fractions 16 MOSAIQ RADIATION ONCOLOGY 06/24/2024 9:10 AM EDT Physician Radiation Oncology RADIATION ONCOLO GY ORDERABLES Final Result MOSAIQ RADIATION ONCOLOGY * Rad Onc Msq Treatment Summary (06/23/2024 9:20 AM EDT) Treatment Site Right Breast MO SAIQ RADIATION ONCOLOGY Course Number 1 MOSAIQ RADIATION ONCOLOGY Prescribed Fractional Dose 267 cGray MOSAIQ RADIATION ONCOLOGY Prescribed Total Dose 4,272 cGray MOSAIQ RADIATION ONCOLOGY Actual Fractions Delivered 2 MOSAIQ RADIATION ONCOLOGY Prescription Pattern Comment no boost MOSAIQ RADIATION ONCOLOGY Actual Session Delivered Dose 267 cGray MOSAIQ RADIATION ONCOLOGY Actual Total Dose 534 cGray MOSAIQ RADIATION ONCOLOGY Prescribed Technique Tangents MOSAIQ RADIATION ONCOLOGY Elapsed Days 1 MOSAIQ RADIATION ONCOLOGY Start Date 06/22/2024 MOSAIQ RADIATION ONCOLOGY Last Date 06/23/2024 MOSAIQ RADIATION ONCOLOGY Prescribed Number of Fractions 16 MOSAIQ RADIATION ONCOLOGY 06/23/2024 9:20 AM EDT Physician Radiation Oncology RADIATION ONCMARY BETH GY ORDERABLES Final Result MOSAIQ RADIATION ONCOLOGY * Rad Onc Msq Treatment Summary (06/22/2024 11:33 AM EDT) Treatment Site Right Breast MO SAIQ RADIATION ONCOLOGY Course Number 1 MOSAIQ RADIATION ONCOLOGY Prescribed Fractional Dose 267 cGray MOSAIQ RADIATION ONCOLOGY Prescribed Total Dose 4,272 cGray MOSAIQ RADIATION ONCOLOGY Actual Fractions Delivered 1 MOSAIQ RADIATION ONCOLOGY Prescription Pattern Comment no boost MOSAIQ RADIATION ONCOLOGY Actual Session Delivered Dose 267 cGray MOSAIQ RADIATION ONCOLOGY Actual Total Dose 267 cGray MOSAIQ RADIATION ONCOLOGY Prescribed Technique Tangents MOSAIQ RADIATION ONCOLOGY Elapsed Days 0 MOSAIQ RADIATION ONCOLOGY Start Date 06/22/2024 MOSAIQ RADIATION ONCOLOGY Last Date 06/22/2024 MOSAIQ RADIATION ONCOLOGY Prescribed Number of Fractions 16 MOSAIQ RADIATION ONCOLOGY 06/22/2024 11:3 3 AM EDT Physician Radiation Oncology RADIATION ONCOLO GY ORDERABLES Final Result MOSAJOAN RADIATION ONCOLOGY * BD Bone Density DXA Axial Skeleton (05/20/2024 9:44 AM EDT) Anatomical Region Laterality Modality Wrist, Hip, L-spine Bone Densito metry 05/20/2024 10:0 1 AM EDT Impressions 05/20/2024 10:04 AM EDT 1. Osteoporosis. There has been an increase of 4.7% in bone mineral density in the lumbar spine since the prior examination of 06/06/2016. There has been a decrease of 11.9% in bone mineral density in the right femur and a decrease of 23.8% in bone mineral density in the left femur. 2. FRAX analysis yields a 10-year probability of major osteoporotic fracture of 14.3% and a 10-year probability of hip fracture of 4.6%. Code 56732 -------- FINAL REPORT -------- Dictated By: Denzel Crockett Dictated Date: 05/20/2024 10:01 ET Assigned Physician: Denzel Crockett Reviewed and Electronically Signed By: Denzel Crockett Signed Date: 05/20/2024 10:04 ET Workstation ID: [id number] Transcribed By: Self Edit Transcribed Date: 05/20/2024 10:02 ET Narrative 05/20/2024 10:04 AM EDT HISTORY: The patient is a 79-year-old postmenopausal female with clinical concern for metabolic bone disease. FINDINGS: Dual energy x-ray absorptiometry of the lumbar spine and femurs is performed. The mean bone mineral density at L1-L4 is 1.105 gm/cm2 which is 94% of that of young normals and 109% of that of age matched controls. This yields a T-score of -0.6 and a Z-score of 0.8 and there is therefore no evidence of osteoporosis or osteopenia here. The mean bone mineral density of the femurs bilaterally is 0.817 gm/cm2 which is 81% of that of young normals and 102% of that of age matched controls. This yields a T-score of -1.5 and a Z-score of 0.1 which is diagnostic of osteopenia. However, the T-score of the left femoral neck is -2.7 which is diagnostic of osteoporosis. Procedure Note Denzel Crockett MD - 05/20/2024 HISTORY: The patient is a 79-year-old postmenopausal female with clinicalconcern for metabolic bone disease. FINDINGS: Dual energy x-ray absorptiometry of the lumbar spine and femursis performed. The mean bone mineral density at L1-L4 is 1.105 gm/cm2 whichis 94% of that of young normals and 109% of that of age matched controls.This yields a T-score of -0.6 and a Z-score of 0.8 and there is thereforeno evidence of osteoporosis or osteopenia here. The mean bone mineral density of the femurs bilaterally is 0.817 gm/le3bofga is 81% of that of young normals and 102% of that of age matchedcontrols. This yields a T-score of -1.5 and a Z-score of 0.1 which isdiagnostic of osteopenia. However, the T-score of the left femoral neck is-2.7 which is diagnostic of osteoporosis. IMPRESSION: 1. Osteoporosis. There has been an increase of 4.7% in bone mineraldensity in the lumbar spine since the prior examination of 06/06/2016.There has been a decrease of 11.9% in bone mineral density in the rightfemur and a decrease of 23.8% in bone mineral density in the left femur. 2. FRAX analysis yields a 10-year probability of major osteoporoticfracture of 14.3% and a 10-year probability of hip fracture of 4.6%. Code 92486 -------- FINAL REPORT -------- Dictated By: Denzel Crockett Dictated Date: 05/20/2024 10:01 ET Assigned Physician: Denzel Crockett Reviewed and Electronically Signed By: Denzel Crockett Signed Date: 05/20/2024 10:04 ET Workstation ID: [id number] Transcribed By: Self Edit Transcribed Date: 05/20/2024 10:02 ET Mansoor Lainez MD IMG DXA PROCEDURES Final Re sult from Last 3 Months or Most Recently Relevant to Health Maintenance Insurance [employer] MEDICARE Member Subscriber Plan / Payer (Ef fective 2011-Present) Name:Abby Dkues Relation to Subscriber:Self Name:Abby Dukes Payer ID:[id number] Group ID:[id number] Type:Not on file Address: [place] [address] [address] [id number] Advance Directives * Full Code - Default (Latest Code Status on File) Date Activated Date Inactivated Comments 04/13/2024 6:11 AM 04/13/2024 1:14 PM This is order is used when code status has not been discussed with the patient, or code status is otherwise unknown/unconfirmed To update the patient's code status, place a code status order. Do not modify or discontinue any currently active code status orders. Care Teams Perforating Machine Operator Relationship Specialty Start Date End Date Ivania Jang NP [address] [place] [id number] PCP - General Family Medicine 02/02/24
--- OUTSIDE RECORDS SUMMARY | 2024-09-09 09:40 | XMS_ITS | Clinical Summary ---
Author Organization [facility] Address [address] [place] [address] Phone Care Team Providers Care Astrochemist Name Role Phone Ivania Jang ELY Primary Care Provider Allergies Active Allergy Reactions Criticality Noted Date Comments Ytvn-Cjzt-Xtykatlzctyqm e Nausea And Vomiting Medium 07/14/2014 Hydralazine 04/28/2024 Latex Medium 07/14/2014 Levofloxacin Other (see comments) 01/20/2019 Other reaction(s): rash, malaise, nausea Oxycodone-Acetaminophen Other (see comments) 05/05/2020 Spironolactone 04/28/2024 Other Reaction(s): hyperkalemia Sulfa Antibiotics Other (see comments) 05/05/2020 Medications albuterol ER (VOSPIRE ER) 8 MG 12 hr tablet Take 1 tablet by mouth 1 (one) time each day Active amLODIPine (NORVASC) 10 MG tablet Take 1 tablet by mouth 1 (one) time each day Active montelukast (SINGULAIR) 10 MG tablet Take 1 tablet by mouth 1 (one) time each day 9 Active Melatonin 5 MG tablet Take 1 tablet by mouth at bed time Active Fluticasone-Ume clidin-Vilant (Trelegy Ellipta) 100-62.5-25 MCG/INH aerosol powder Inhale Active Latanoprostene Bunod (Vyzulta) 0.024 % solution Administer into affected eye(s) Active levothyroxine (SYNTHROID, LEVOTHROID) 112 MCG tablet Take 112 mcg by mouth 1 (one) time each day 1 Active calcium carbonate-vitam in D (OSCAL-500) 500-200 MG-UNIT per tablet Take 1 tablet by mouth in the morning and 1 tablet in the evening. Active Diclofenac Sodium 1 % gel 1 Active Breo Ellipta 200-25 MCG/INH aerosol powder INHALE 1 PUFF BY MOUTH DAILY 1 Active fluticasone (FLONASE) 50 MCG/ACT nasal spray SHAKE LIQUID AND USE 2 SPRAYS IN EACH NOSTRIL DAILY 1 Active losartan (COZAAR) 100 MG tablet Take 100 mg by mouth 1 (one) time each day 1 Active mirtazapine (REMERON) 30 MG tablet Take 30 mg by mouth at bed time 1 Active latanoprost (XALATAN) 0.005 % ophthalmic solution latanoprost 0.005 % eye drops Active Cyanocobalamin 1000 MCG capsule Take 1 capsule by mouth 1 (one) time each day Active aspirin (ST TEO) 81 MG EC tablet Take 81 mg by mouth 3 Active atorvastatin (LIPITOR) 80 MG tablet Take 80 mg by mouth 3 Active ferrous sulfate 325 (65 Fe) MG tablet Take 325 mg by mouth 1 (one) time each day with breakfast Active metoprolol tartrate 25 MG tablet Take 25 mg by mouth in the morning and 25 mg in the evening. Active omeprazole (PriLOSEC) [address] capsule Take 20 mg by mouth 1 (one) time each day Do not crush or chew. Active spironolactone (ALDACTONE) 25 MG tablet Take 25 mg by mouth 1 (one) time each day 4 Active clopidogrel (PLAVIX) 75 MG tablet Take 75 mg by mouth 1 (one) time each day Active cloNIDine 0.1 MG/24HR patch weekly 4 Active chlorthalidone 25 MG tablet Take 25 mg by mouth 1 (one) time each day Active Active Problems Problem Noted Date Diagnosed Date Deep venous thrombosis of lower extremity 2023 Overview (04/24/2023): in 07/2014; provoked from surgery in 07/2014; provoked from surgery Systolic murmur 04/24/2023 Myocardial infarction 11/09/2022 Other iron deficiency anemia 11/13/2020 Osteoporosis 11/13/2020 Acquired complex renal cyst 05/08/2020 Proteinuria, not otherwise specified 05/08/2020 Stage 3a chronic kidney disease 05/05/2020 Hypertension 05/05/2020 Chronic obstructive pulmonary disease 03/13/2018 Resolved Problems Problem Noted Date Diagnosed Date Resolved Date Acute nontraumatic kidney injury 05/05/2020 04/24/2023 COVID-19 05/05/2020 11/13/2021 Hypertensive renal disease 05/05/2020 0 11/13/2021 Immunizations Immunization Administration Dates Next Due DT 06/15/2008 Hepatitis B 12/18/2016 Pfizer SARS-COV-2 03/23/2021,05/08/2020,04/17/19 21 Pneumococcal Conjugate 13-Valent 02/07/2015 Pneumococcal Polysaccharide 11/12/2013 Shingrix 01/01/2024 Tdap 11/30/2021 Zoster 09/17/2011 Family History Medical History Relation Comments Cancer Mother Diabetes Sibling 1 Sister Hypertension Sibling 2 Sister Relation Status Comments Father Mother Sibling 1 Sibling 2 Social History Tobacco Use Types Packs/Day Years Used Date Smoking Tobacco: Former Cigarettes Q uit: 01/07/1999 Smokeless Tobacco: Never Tobacco Cessation:Counseling Given: Not Answered Comments:Smoking History Info:Every day Alcohol Use Standard Drinks/Week Comments No 0 (1 standard drink = 0.6 oz pur e alcohol) Comments Unknown Sex and Gender Information Value Date Recorded Sex Assigned at Not on file Legal Sex Female 4:55 PM EST Gender Identity Not on file Sexual Orientation Not on file Last Filed Vital Signs Vital Sign Reading Time Taken Comments Blood Pressure 138/60 04/29/2024 10:16 AM EST Pulse 72 04/29/2024 10:16 AM EST Temperature - - Respiratory Rate - - Oxygen Saturation 97% 04/29/2024 10:16 AM EST Inhaled Oxygen Concentration - - Weight 79.6 kg (175 lb 6.4 oz) 04/29/2024 10:16 AM EST Height 152.4 cm (5') 04/29/2024 10:16 AM EST Body Mass Index 34.26 04/29/2024 10:16 AM EST Plan of Treatment Upcoming Encounters Date Type Department Care Team (Late st Contact Info) Description 11/09/2024 10:20 AM EDT Office Visit [facility] [address] [address] Kevin Cage MD [address] [address] Health Maintenance Due Date Last Done Comments Pneumococcal Vaccine: 50+ Years Completed 02/07/2015, 11/12/2013 Pneumococcal Vaccine: Peds (0 to 5 Years) and At-Risk Patients (6 to 49 Years) Discontinued 02/07/2015, 11/12/2013 Hepatitis B Vaccine Aged Out 12/18/2016 No longe r eligible based on patient's age to complete this topic Influenza Vaccine Completed 12/01/2023 Insurance * Guarantor: Abby Dukes Account Type Relation to Patient Date of Phone Billing Address Personal/Family Self 1945 [address] [facility]. [address] ([id number]) [facility] ([id number]) Care Teams Astrochemist Relationship Specialty Start Date End Date Ivania Jang NP [address] [place] [address] PCP - General 11/14/21
--- OUTSIDE RECORDS SUMMARY | 2024-09-09 09:40 | XMS_ITS | Data Portability ---
Author Organization [place] - [facility], Allergy Address [address] [address] Assessment Encounter Date Assessment Date Assessment LastModified by Organization Details LastModified Time 10/07/2023 10/07/2023 Patient's audiogram shows bilateral moderate sensorineural hearing loss with well maintained speech discrimination. There is enough hearing loss to affect day-to-day hearing performance. We discussed in detail the pros and cons of amplification (hearing aids). Patient would like to learn more about this option so I have provided a copy of the audiogram, a list of [facility] hearing aid providers, and medical clearance for amplification so the patient can pursue this at their convenience. Patient is medically cleared for amplification bilaterally. Small amount of cerumen removed from left EAC. Dizzy history sounds most consistent with postural hypotension as she gets up quickly. She already has learned to compensate by getting up slowly [email or web address] Not available 10/07/2023 14:33:58 Plan of Treatment Reminders Order Date Submit Date Provider Last Modified By Organization Details Last Modified Time Details Appointments None record ed. Lab None record ed. Referral None record ed. Procedures None record ed. Surgeries None record ed. Imaging None record ed. Medication Orders None record ed. Patient TargetsNo targets recorded. Patient InstructionsNo instructions recorded. Reason for Referral None Reported. Results Created Date Observation Date Name Description Value Unit Range Abnormal Flag Note LastModifiedBy Organization Detail LastModifiedTime 10/07/19 24 audio gram No observ ation record ed. BARCODE Not Available 2023 15:42:46 10/29/19 24 04/22/2023 imagi ng/di agnos tic resul t No observ ation record ed. [email or web address] Not Available 20:28:15 10/29/19 24 06/20/2020 imagi ng/di agnos tic resul t No observ ation record ed. [email or web address] Not Available 20:28:33 10/29/19 24 06/20/2020 audio gram No observ ation record ed. [email or web address] Not Available 20:28:53 Result Notes None recorded. Problems Name Problem SNOMED Code Status Onset Date Resolution Date Notes Provider Name and Address Organization Details Recorded Time Sensorine ural hearing loss of bilateral ears 590360237 Active 2020 Sensorine ural hearing loss, bilateral ; Note: Date Diagnosed : 06/20/2020 1:05 PM (H90.3) Not Available Replaced by [facility] 4 03:16:18 Impacted cerumen in left ear [id number] 76212 Active 2020 Impacted cerumen, left ear; Note: Date Diagnosed : 06/20/2020 12:41 PM (H61.22) Not Available Replaced by [facility] 4 03:16:18 Jaw pain 854245463 Active 2020 Jaw pain; Note: Date Diagnosed : 06/20/2020 12:41 PM (R68.84) Not Available Replaced by [facility] 4 03:16:19 Dizziness and giddiness 149074838 Active 2020 Dizziness and giddiness ; Note: Date Diagnosed : 06/20/2020 1:05 PM (R42) Not Available Replaced by [facility] 4 03:16:18 Dizziness 770297069 Active 2023 SREEKANTH AGUDELO MD [address] [place] [address], [facility] [place], [phone] , [facility] - [facility] 4 14:34:01 Localized enlarged lymph nodes 964792457 Active 2023 Localized enlarged lymph nodes; Note: Date Diagnosed : 05/26/2023 11:39 AM (R59.0) Not Available Replaced by [facility] 4 03:16:18 Mass of neck 566040900 Active 2023 Localized swelling, mass and lump, neck; Note: Date Diagnosed : 06/03/2023 3:20 PM (R22.1) Not Available Replaced by [facility] 4 03:16:18 Neck swelling 704923086 Active 2023 Localized swelling, mass and lump, neck; Note: Date Diagnosed : 06/03/2023 3:20 PM (R22.1) Not Available Replaced by [facility] 4 03:16:18 Impacted cerumen of bilateral ears 02660924949 90869 Active 2023 Impacted cerumen, bilateral ; Note: Date Diagnosed : 05/26/2023 11:39 AM (H61.23) Not Available Replaced by [facility] 4 03:16:19 Leukocyto sis 569269795 Active 2023 Elevated white blood cell count, unspecifi ed; Note: Date Diagnosed : 05/26/2023 4:52 PM (D72.829) Not Available Replaced by [facility] 4 03:16:19 Problem Notes None recorded. Procedures Surgical History Date Name Laterality Status Provider Name and Address Organization Details Recorded Time 10/07/2023 Comp Audio with Tymps - 34004 & 00796 completed ZEESHAN MAJOR, [facility] 100 [facility],[place] [address], [place], [address], [facility] - [facility] 10/07/2023 14:05:26 Imaging Results None recorded. Procedure Notes None recorded. Medical Equipment None Reported. Allergies No known drug allergies Medications Name Sig Start Date Stop Date Status Note LastModified by Organization Details LastModified Time vitamin d3 1,000 unit softg active Not Available Not Available Not Available minerin creme crea 10/06 completed Not Available Not Available Not Available calcium cit 200-vit d3 250 10/06 completed Not Available Not Available Not Available latanopro st 0.005 % eye drops active Not Available Not Available Not Available atorvasta tin 80 mg tablet TAKE 1 TABLET BY MOUTH DAILY active Not Available Not Available No t Available acetamino phen 325 mg tablet 10/06 completed Not Available Not Available Not Available carvedilo l 6.25 mg tablet 10/06 completed Not Available Not Available Not Available prednison e 10 mg tablet 10/06 completed Not Available Not Available Not Available Mylanta Maximum Strength 400 mg-400 mg-40 mg/5 mL oral suspensio n TAKE 10ML BY MOUTH TWICE DAILY NEEDED FOR INDIGEST ION active Not Available Not Available No t Available albuterol sulfate 2.5 mg/3 mL (0.083 %) solution for nebulizat ion INHALE 1 VIAL VIA NEBULIZE R EVERY 4 HOURS NEEDED FOR SHORTNES S OF BREATH OR WHEEZING 10/06 completed Not Available Not Available Not Available azithromy amanda 250 mg tablet 10/06 completed Not Available Not Available Not Available cefpodoxi me 100 mg tablet TAKE 1 TABLET BY MOUTH TWICE DAILY WITH FOOD 10/06 completed Not Available Not Available Not Available prednison e 20 mg tablet 10/06 completed Not Available Not Available Not Available hydralazi ne 25 mg tablet TAKE 1 TABLET BY MOUTH TWICE DAILY active Not Available Not Available No t Available clopidogr el 75 mg tablet TAKE 1 TABLET BY MOUTH DAILY active Not Available Not Available No t Available chlorthal idone 25 mg tablet TAKE 1 TABLET BY MOUTH DAILY active Not Available Not Available No t Available SPS (with sorbitol) 15 gram-20 gram/60 mL oral suspensio n SHAKE LIQUID AND TAKE 60 ML BY MOUTH TWICE DAILY FOR 2 DAYS 10/06 completed Not Available Not Available Not Available aspirin 81 mg tablet,de layed release TAKE 1 TABLET BY MOUTH DAILY active Not Available Not Available No t Available tramadol 50 mg tablet active Medicati on ID: [id number] B rand Name: tramadol Send Method: E-Prescr ibed Sub s Allowed: subs OK Medic ationGen ericName : tramadol Not Available Not Available Not Available spironola ctone 25 mg tablet active Not Available Not Available No t Available levothyro xine 100 mcg tablet active Not Available Not Available Not Available amlodipin e 10 mg tablet TAKE 1 TABLET BY MOUTH DAILY active Not Available Not Available No t Available benzonata te 100 mg capsule 10/06 completed Not Available Not Available Not Available cephalexi n 500 mg capsule TAKE 1 CAPSULE BY MOUTH EVERY 8 HOURS 10/06 completed Not Available Not Available Not Available mirtazapi ne 30 mg tablet active Not Available Not Available Not Available lidocaine 5 % topical patch 10/06 completed Not Available Not Available Not Available losartan 25 mg tablet TAKE 1 TABLET BY MOUTH DAILY active Not Available Not Available No t Available brimonidi ne 0.2 % eye drops active Not Available Not Available No t Available hydrochlo rothiazid e 12.5 mg capsule 10/06 completed Not Available Not Available Not Available omeprazol e 20 mg capsule,d elayed release active Not Available Not Available Not Available budesonid e 0.5 mg/2 mL suspensio n for nebulizat ion active Medicati on ID: [id number] B rand Name: budesoni de Send Method: E-Prescr ibed Sub s Allowed: subs OK Medic ationGen ericName : budesoni de Not Available Not Available Not Available monteluka st 10 mg tablet TAKE 1 TABLET BY MOUTH AT BEDTIME active Not Available Not Available No t Available codeine 10 mg-guaife nesin 100 mg/5 mL oral liquid TAKE 10 ML BY MOUTH EVERY 6 HOURS NEEDED FOR COUGH 10/06 completed Not Available Not Available Not Available hydrochlo rothiazid e 25 mg tablet active Medicati on ID: [id number] B rand Name: hydrochl orothiaz salvador Send Method: E-Prescr ibed Sub s Allowed: subs OK Medic ationGen ericName : hydrochl orothiaz salvador Not Available Not Available Not Available zolpidem 10 mg tablet active Medicati on ID: [id number] B rand Name: zolpidem Send Method: E-Prescr ibed Sub s Allowed: subs OK Medic ationGen ericName : zolpidem Not Available Not Available Not Available albuterol sulfate HFA 90 mcg/actua tion aerosol inhaler active Medicati on ID: [id number] B rand Name: albutero l sulfate Send Method: E-Prescr ibed Sub s Allowed: subs OK Medic ationGen ericName : albutero l sulfate Not Available Not Available Not Available ferrous sulfate 325 mg (65 mg iron) tablet,de layed release active Medicati on ID: [id number] B rand Name: ferrous sulfate Send Method: E-Prescr ibed Sub s Allowed: subs OK Medic ationGen ericName : ferrous sulfate Not Available Not Available Not Available cefdinir 300 mg capsule TAKE ONE CAPSULE BY MOUTH EVERY 12 HOURS 10/06 completed Not Available Not Available Not Available losartan 100 mg tablet active Medicati on ID: [id number] B rand Name: losartan Send Method: E-Prescr ibed Sub s Allowed: subs OK Medic ationGen ericName : losartan Not Available Not Available Not Available fluticaso ne propionat e 50 mcg/actua tion nasal spray,yisel pension active Medicati on ID: [id number] B rand Name: fluticas one propiona te Send Method: E-Prescr ibed Sub s Allowed: subs OK Medic ationGen ericName : fluticas one propiona te Not Available Not Available Not Available dorzolami de 2 % eye drops active Not Available Not Available No t Available Vitamin D3 25 mcg (1,000 unit) capsule active Not Available Not Available Not Available cyclobenz aprine 5 mg tablet TAKE 1 TABLET BY MOUTH THREE TIMES DAILY active Not Available Not Available No t Available rosuvasta tin 5 mg tablet active Medicati on ID: [id number] B rand Name: rosuvast atin Sen d Method: E-Prescr ibed Sub s Allowed: subs OK Medic ationGen ericName : rosuvast atin Not Available Not Available Not Available metoprolo l tartrate 25 mg tablet active Medicati on ID: [id number] B rand Name: metoprol ol tartrate Send Method: E-Prescr ibed Sub s Allowed: subs OK Medic ationGen ericName : metoprol ol tartrate Not Available Not Available Not Available nitrofura ntoin monohydra te/macroc rystals 100 mg capsule 10/06 completed Not Available Not Available Not Available diclofena c 1 % topical gel APPLY TOPICALL Y FOUR TIMES DAILY active Not Available Not Available No t Available melatonin 5 mg tablet active Not Available Not Available Not Available calcium 200 mg (as citrate)- vitamin D3 6.25 mcg (250 unit) tablet active Not Available Not Available Not Available Brilinta 90 mg tablet TAKE 1 TABLET BY MOUTH TWICE DAILY 10/06 completed Not Available Not Available Not Available Breo Ellipta 200 mcg-25 mcg/dose powder for inhalatio n INHALE 1 PUFF BY MOUTH DAILY active Not Available Not Available No t Available Rhopressa 0.02 % eye drops active Not Available Not Available No t Available COVID-19 At-Home Test kit USE DIRECTED 10/06 completed Not Available Not Available Not Available Vitals Date Recorded Body height Body mass index (BMI) Body weight Provider Name and Address Organization Details Last Updated DateTime 10/07/2023 157.48 cm 32 kg/m2 70563.66 g Margaret Darling [place] - [facility] 10/07/2023 13:52:23 Social History None recorded. Functional Status None recorded. Mental Status None recorded. Family History Nothing Reported. Medical History Condition Response Thyroid Problems Y Hypertension Y GERD/Reflux Y High Cholesterol Y Gynecological HistoryNo gynecological history recorded. Obstetrics History GPAL:G 0 P 0 0 0 0 Past Encounters Encounter ID Performer Location Encounter Start Date Encounter Closed Date Diagnosis/Indication Diagnosis SNOMED-CT Code Diagnosis ICD10 Code Diagnosis Note [id number] SREEKANTH AGUDELO MD [facility] [address] [address] 10/07/2023 13:46:57 10/07/2023 14:34:56 Sensorineural hearing loss of bilateral ears 015024779 H90.3 Audiologic al evaluation results: 10/07/2023 Right ear: Normal sloping to a mild to moderate sensorineu ral hearing loss with excellent word recognitio n. Left ear: Normal sloping to a mild to moderate sensorineu ral hearing loss with excellent word recognitio n. Tympanomet ry: Right Ear:Type A Left Ear:Type A Dizziness and giddiness 646349199 R42 Dizziness 785530064 R42 Health Concerns Section Related Observation LastModified by Organization Detai ls LastModified Time None Recorded Concern Status LastModified by Organization Details LastModified Time None Recorded Advance Directives Directive None Recorded Payers Insurance Date Sequence Insurance Name Policy Number Policy Rolle Covered Member ID Rolle Member ID Guarantor Name 10/13/2023 1 [facility] - DOS ON OR AFTER 2022 - MEDICARE ADVANTAGE [place]PLACEMENT/ADV ANTAGE - PPO) Abby Dukes [id number] Abby Dukes Notes Date Note Type Note Provider Name and Address Organization Details Recorded Time 10/07/2023 text/html hearing losslast seen 07/07/[address] Wei for left postauricular swelling that resolved with course of abxpt feels decreased hearing, requests wax cleaning, last time was about 6 months ago+no prior ear surgerygets imbalance when standing from sitting or from laying down. improves if she gets up slow SREEKANTH AGUDELO MD [address] [place] [address], [place], [address], [place] - [facility] 10/07/2023 14:34:19 OBGyn Episode No OBEpisode recorded.
== END 2024-09-09 10:00 | disposition home or self-care (01) ==
LOC: HO.HPS 09:22
PROVIDERS: PCP Nurse Practitioner Family; Visit Provider Hospitalist
DX: J47.1 Bronchiectasis with (acute) exacerbation (principal); R91.8 Other nonspecific abnormal finding of lung field; J45.40 Moderate persistent asthma, uncomplicated; G47.33 Obstructive sleep apnea (adult) (pediatric); Z99.89 Dependence on other enabling machines and devices; I25.10 Atherosclerotic heart disease of native coronary artery without angina pectoris
CPT/HCPCS: 99214; G2211

== ENCOUNTER → 2024-09-09 09:22 | Outpatient (BNVA) | payer OTHER, SELFPAY | PROVIDERS: PCP Nurse Practitioner Family; Visit Provider Hospitalist | DX: J47.1 Bronchiectasis with (acute) exacerbation (principal); R91.8 Other nonspecific abnormal finding of lung field; J45.40 Moderate persistent asthma, uncomplicated; G47.33 Obstructive sleep apnea (adult) (pediatric); Z99.89 Dependence on other enabling machines and devices; I25.10 Atherosclerotic heart disease of native coronary artery without angina pectoris | CPT/HCPCS: 99212 ==

== ENCOUNTER 2024-09-13 12:42 | Outpatient (REF) | payer OTHER, SELFPAY ==
--- NOTE | ~2024-09-13 | CT_ITS ---
EXAMINATION: CT CHEST WITHOUT IV CONTRAST INDICATION: R91.8 - Other nonspecific abnormal finding of lung field COMPARISON: Comparison is made with the prior examination dated 01/27/2021. TECHNIQUE: Helical CT scan of the chest was performed without intravenous contrast. Coronal and sagittal reformatted images were generated and reviewed. This CT exam was performed with one or more of the following dose reduction techniques: automated exposure control, adjustment of the mA and/or kV according to patient size, use of iterative reconstruction technique. DLP: 142 mGy-cm CHEST: THYROID: The thyroid is unremarkable. LUNGS: Again seen is scarring along the right major fissure. There is bronchiectasis and subsegmental atelectasis/scarring in the right middle lobe and lingula. MEDIASTINUM: There are subcentimeter superior mediastinal lymph nodes which are not enlarged by CT criteria. EVELIN: Evaluation of the hilar regions is limited by lack of intravenous contrast material. CARDIOVASCULATURE: The heart is normal in size. There is no pericardial effusion. The thoracic aorta is normal in caliber. DEGREE OF CORONARY CALCIFICATION: severe PLEURA: There is no pleural effusion. No pneumothorax. MAIN AIRWAYS: The mainstem bronchi and proximal branches are patent. AXILLA: There is no axillary lymphadenopathy. BONES AND SOFT TISSUES: There are postsurgical changes involving the lateral right breast since the prior study. There is mild degenerative disc disease of the spine. UPPER ABDOMEN: The visualized portions of the liver, spleen, and adrenals have an unremarkable unenhanced appearance. CT/CT chest wo IV con IMPRESSION: Stable scarring along the right major fissure and bronchiectasis with subsegmental atelectasis/scarring in the right middle lobe and lingula. Electronically signed by: Mert Morley MD 09/13/2024 01:55 PM EDT
--- OUTSIDE RECORDS SUMMARY | 2024-09-13 13:14 | XMS_ITS | Data Portability ---
Author Organization [place] - [facility], Allergy Address [address] [address] Assessment Encounter Date Assessment Date Assessment LastModified [...] copy of the audiogram, a list of [facility] hearing aid providers, and medical clearance for [...] Sensorine ural hearing loss of bilateral ears 776868493 Active 2020 Sensorine ural hearing loss, bilateral ; Note: Date Diagnosed : 06/20/2020 1:05 PM (H90.3) Not Available [facility] 4 03:16:18 Impacted cerumen in left ear 86364945613 34994 Active 2020 Impacted cerumen, left ear; Note: Date Diagnosed : 06/20/2020 12:41 PM (H61.22) Not Available [facility] 4 03:16:18 Jaw pain 453705429 Active 2020 Jaw pain; Note: Date Diagnosed : 06/20/2020 12:41 PM (R68.84) Not Available [facility] 4 03:16:19 Dizziness and giddiness 992416981 Active 2020 Dizziness and giddiness ; Note: Date Diagnosed : 06/20/2020 1:05 PM (R42) Not Available [facility] 4 03:16:18 Dizziness 963949112 Active 2023 SREEKANTH AGUDELO MD [address] [place] [address], [facility] [place], [phone] , [facility] - [facility] 4 14:34:01 Localized enlarged lymph nodes 023721562 Active 2023 Localized enlarged lymph nodes; Note: Date Diagnosed : 05/26/2023 11:39 AM (R59.0) Not Available [facility] 4 03:16:18 Mass of neck 476101589 Active 2023 Localized swelling, mass and lump, neck; Note: Date Diagnosed : 06/03/2023 3:20 PM (R22.1) Not Available [facility] 4 03:16:18 Neck swelling 334220303 Active 2023 Localized swelling, mass and lump, neck; Note: Date Diagnosed : 06/03/2023 3:20 PM (R22.1) Not Available [facility] 4 03:16:18 Impacted cerumen of bilateral ears 37634774208 36759 Active 2023 Impacted cerumen, bilateral ; Note: Date Diagnosed : 05/26/2023 11:39 AM (H61.23) Not Available [facility] 4 03:16:19 Leukocyto sis 633417944 Active 2023 Elevated white blood cell count, unspecifi ed; Note: Date Diagnosed : 05/26/2023 4:52 PM (D72.829) Not Available [facility] 4 03:16:19 Problem Notes None recorded. Procedures Surgical History Date Name Laterality Status Provider Name and Address Organization Details Recorded Time 10/07/2023 Comp Audio with Tymps - 01247 & 23178 completed ZEESHAN MAJOR, [facility] [address] [facility],[place] [address], [place], [address], [facility] - [facility] 10/07/2023 14:05:26 Imaging Results None recorded. [...] 50 mg tablet active Medicati on ID: [id number] B rand Name: tramadol Send Method: E-Prescr [...] for nebulizat ion active Medicati on ID: [id number] B rand Name: budesoni de Send Method: [...] 25 mg tablet active Medicati on ID: [id number] B rand Name: hydrochl orothiaz salvador Send Method: E-Prescr ibed Sub s Allowed: subs OK Medic ationGen ericName : hydrochl orothiaz salvador Not Available Not Available Not Available zolpidem 10 mg tablet active Medicati on ID: [id number] B rand Name: zolpidem Send Method: E-Prescr ibed Sub s Allowed: subs OK Medic ationGen ericName : zolpidem Not Available Not Available Not Available albuterol sulfate HFA 90 mcg/actua tion aerosol inhaler active Medicati on ID: [id number] B rand Name: albutero l sulfate Send Method: E-Prescr ibed Sub s Allowed: subs OK Medic ationGen ericName : albutero l sulfate Not Available Not Available Not Available ferrous sulfate 325 mg (65 mg iron) tablet,de layed release active Medicati on ID: [id number] B rand Name: ferrous sulfate Send Method: E-Prescr ibed Sub s Allowed: subs OK Medic ationGen ericName : ferrous sulfate Not Available Not Available Not Available cefdinir 300 mg capsule TAKE ONE CAPSULE BY MOUTH EVERY 12 HOURS 10/06 completed Not Available Not Available Not Available losartan 100 mg tablet active Medicati on ID: [id number] B rand Name: losartan Send Method: E-Prescr ibed Sub s Allowed: subs OK Medic ationGen ericName : losartan Not Available Not Available Not Available fluticaso ne propionat e 50 mcg/actua tion nasal spray,yisel pension active Medicati on ID: [id number] B rand Name: fluticas one propiona te [...] 5 mg tablet active Medicati on ID: [id number] B rand Name: rosuvast atin Sen d Method: E-Prescr ibed Sub s Allowed: subs OK Medic ationGen ericName : rosuvast atin Not Available Not Available Not Available metoprolo l tartrate 25 mg tablet active Medicati on ID: [id number] B rand Name: metoprol ol tartrate Send [...] Updated DateTime 10/07/2023 157.48 cm 32 kg/m2 42460.66 g Margaret Darling MA - [facility] 10/07/2023 13:52:23 Social History None recorded. Functional Status None recorded. Mental Status None recorded. Family History Nothing Reported. Medical History Condition Response Thyroid Problems Y Hypertension Y High Cholesterol Y GERD/Reflux Y Gynecological HistoryNo gynecological history recorded. Obstetrics History GPAL:G 0 P 0 0 0 0 Past Encounters Encounter ID Performer Location Encounter Start Date Encounter Closed Date Diagnosis/Indication Diagnosis SNOMED-CT Code Diagnosis ICD10 Code Diagnosis Note [id number] SREEKANTH AGUDELO MD [facility] [address] [address] 10/07/2023 13:46:57 10/07/2023 14:34:56 Sensorineural hearing loss of bilateral ears [id number] H90.3 Audiologic al evaluation results: 10/07/2023 Right ear: Normal sloping to a mild to moderate sensorineu ral hearing loss with excellent word recognitio n. Left ear: Normal sloping to a mild to moderate sensorineu ral hearing loss with excellent word recognitio n. Tympanomet ry: Right Ear:Type A Left Ear:Type A Dizziness and giddiness 115147953 R42 Dizziness 334151825 R42 Health Concerns Section Related Observation LastModified by Organization Detai ls LastModified Time None Recorded Concern Status LastModified by Organization Details LastModified Time None Recorded Advance Directives Directive None Recorded Payers Insurance Date Sequence Insurance Name Policy Number Policy Rolle Covered Member ID Rolle Member ID Guarantor Name 10/13/2023 1 [facility] - DOS ON OR AFTER 2022 - MEDICARE AD[place]ANTAGE [place]EMENT/ADV ANTAGE - PPO) Abby Dukes [id number] Abby Dukes Notes Date Note Type Note [...] she gets up slow SREEKANTH AGUDELO MD [address] [place] [address], [place], [address], [place] - [facility] 10/07/2023 14:34:19 OBGyn Episode No OBEpisode recorded.
--- OUTSIDE RECORDS SUMMARY | 2024-09-13 13:14 | XMS_ITS | Clinical Summary ---
Author Organization [facility] Address [address] [place] [address] Phone Care Team Providers Care Appliance Assembler Name Role Phone CallicoonIvania kelley ELY Primary Care Provider Allergies Active Allergy [...] 1 (one) time each day. Active cloNIDine (BAMBLHGC-PJS-0 ) 0.1 mg/[address] 1 patch [...] COVID-19 05/11/2024 Heel pain, bilateral 05/11/2024 Hyperparathyroidism ([facility] V24) 05/11/2024 Hypothyroidism 05/11/2024 Impaired glucose tolerance 05/11/2024 Incontinence 05/11/2024 Overview (05/11/2024): seeing urology Mitral valve stenosis 05/11/2024 Overview (05/11/2024): echo obtained at [facility] 05/12/2020 echo obtained at [facility] 05/12/2020 Moderate persistent asthma with exacerbation 06/2024 Myofascial pain syndrome 05/11/2024 Neuralgia 05/11/2024 Osteoarthritis of knee 05/11/2024 Overview (05/11/2024): left knee treated at [facility] Osteoarthritis of left knee 05/11/2024 Osteopenia 05/11/2024 Overview (05/11/2024): DEXA from [facility] 05/28/07 - Tscores -1.9 lumbar and T [...] Cancer Staging:Pathologic: pT1b, cN0, cM0, G1, ER+, [place]+, HER2- - Signed by Stephanie Lozano MD [...] from surgery Systolic murmur 04/24/2023 Myocardial infarction ([facility] V24, [facility] V28) 11/09/2022 Iron deficiency anemia 11/13/2020 Osteoporosis [...] Hypertension 05/05/2020 Stage 3 chronic kidney disease ([facility] V24, [facility] V28) 05/05/2020 COPD (chronic obstructive pu lmonary disease) ([facility] V24, [facility] V28) 03/13/2018 Obstructive sleep apnea syndrome 03/13/2018 Pulmonary nodules 03/13/2018 Incisional hernia 07/14/2014 History of partial surgical removal of colon 03/2014 Overview (05/11/2024): Dr Luisa Ocampo Resolved Problems Problem Noted Date Diagnosed Date Resolved Date Malignant neoplasm of breast ([facility] V24, 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 V28) (Primary Dx) Discharge Disposition: Home or Self Care 07/27/2024 10:30 AM EDT Office Visit [facility] [address] [place] [phone] Mansoor Lainez MD Carcinoma of lower-outer quadrant of right breast in female, estrogen receptor positive ([facility] V24, [facility] V28) (Primary Dx) 07/13/2024 8:55 AM EDT - 07/13/2024 11:59 PM EDT Hospital Encounter [facility] [address] [place] [phone] Milagro Hoover NP Carcinoma of lower-outer quadrant of right breast in female, estrogen receptor positive ([facility] V24, [facility] V28) (Primary Dx) Discharge Disposition: Home or Self Care 07/13/2024 8:45 AM EDT - 07/13/2024 11:59 PM EDT Hospital Encounter [facility] [address] [place] [phone] Discharge Disposition: Home or Self Care 07/12/2024 8:43 AM EDT - 07/12/2024 11:59 PM EDT Hospital Encounter [facility] [address] [place] [phone] Discharge Disposition: Home or Self Care 07/09/2024 8:53 AM EDT - 07/09/2024 11:59 PM EDT Hospital Encounter [facility] [address] [place] [phone] Stephanie Lozano MD Carcinoma of lower-outer quadrant of right breast in female, estrogen receptor positive (CMS/HCC V24, CMS/HCC V28) (Primary Dx) Discharge Disposition: Home or Self Care 07/09/2024 8:47 AM EDT - 07/09/2024 11:59 PM EDT Hospital Encounter [facility] [address] [place] [phone] Discharge Disposition: Home or Self Care 07/08/2024 8:47 AM EDT - 07/08/2024 11:59 PM EDT Hospital Encounter [facility] [address] [place] [phone] Discharge Disposition: Home or Self Care 07/07/2024 8:48 AM EDT - 07/07/2024 11:59 PM EDT Hospital Encounter [facility] [address] [place] [phone] Discharge Disposition: Home or Self Care 07/06/2024 9:01 AM EDT - 07/06/2024 11:59 PM EDT Hospital Encounter [facility] [address] [place] [phone] Discharge Disposition: Home or Self Care 07/05/2024 8:52 AM EDT - 07/05/2024 11:59 PM EDT Hospital Encounter [facility] [address] [place] [phone] Discharge Disposition: Home or Self Care 07/02/2024 9:50 AM EDT - 07/02/2024 11:59 PM EDT Hospital Encounter [facility] [address] [place] [phone] Stephanie Lozano MD Carcinoma of lower-outer quadrant of right breast in female, estrogen receptor positive (CMS/HCC V24, CMS/HCC V28) (Primary Dx) Discharge Disposition: Home or Self Care 07/02/2024 9:35 AM EDT - 07/02/2024 11:59 PM EDT Hospital Encounter [facility] [address] [place] [phone] Discharge Disposition: Home or Self Care 07/01/2024 8:52 AM EDT - 07/01/2024 11:59 PM EDT Hospital Encounter [facility] [address] [place] [phone] Discharge Disposition: Home or Self Care 06/30/2024 8:51 AM EDT - 06/30/2024 11:59 PM EDT Hospital Encounter [facility] [address] [place] [phone] Discharge Disposition: Home or Self Care 06/29/2024 8:55 AM EDT - 06/29/2024 11:59 PM EDT Hospital Encounter [facility] [address] [place] [phone] Discharge Disposition: Home or Self Care 06/28/2024 9:03 AM EDT - 06/28/2024 11:59 PM EDT Hospital Encounter [facility] [address] [place] [phone] Discharge Disposition: Home or Self Care 06/25/2024 9:07 AM EDT - 06/25/2024 11:59 PM EDT Hospital Encounter [facility] [address] [place] [phone] Noel Sorenson MD Discharge Disposition: Home or Self Care 06/25/2024 8:53 AM EDT - 06/25/2024 11:59 PM EDT Hospital Encounter [facility] [address] [place] [phone] Discharge Disposition: Home or Self Care 06/24/2024 9:01 AM EDT - 06/24/2024 11:59 PM EDT Hospital Encounter [facility] [address] [place] [phone] Discharge Disposition: Home or Self Care 06/23/2024 9:08 AM EDT - 06/23/2024 11:59 PM EDT Hospital Encounter [facility] [address] [place] [phone] Discharge Disposition: Home or Self Care 06/22/2024 11:15 AM EDT - 06/22/2024 11:59 PM EDT Hospital Encounter [facility] [address] [place] [phone] Noel Sorenson MD Discharge Disposition: Home or Self Care 06/22/2024 11:00 AM EDT - 06/22/2024 11:59 PM EDT Hospital Encounter [facility] [address] [place] [phone] Discharge Disposition: Home or Self Care 06/18/2024 10:40 AM EDT - 06/18/2024 11:59 PM EDT Hospital Encounter [facility] [address] [place] [phone] Discharge Disposition: Home or Self Care 06/15/2024 9:35 AM EDT - 06/15/2024 11:59 PM EDT Hospital Encounter [facility] [address] [place] [phone] Stephanie Lozano MD Malignant neoplasm of upper-outer quadrant of right breast in female, estrogen receptor positive (CMS/HCC V24, CMS/HCC V28) Discharge Disposition: Home or Self Care 06/15/2024 9:12 AM EDT - 06/15/2024 11:59 PM EDT Hospital Encounter [facility] [address] [place] [phone] Discharge Disposition: Home or Self Care from Last 3 Months Immunizations Name Administration Dates Next Due Diptheria & Tetanus, 6wks to less than 7yo 06/15/2008 Hepatitis B (Hxmrknd-L-Mev[place] , Recombivax HB-Adult) 19yo and older 12/18/2016 [...] Date Site/Laterality Comments OTHER SURGICAL HISTORY PROCEDURE: [place] RPR EPIGASTRIC HERNIA REDUCIBLE SPX OTHER SURGICAL [...] stomach cancer Anemia DX:Anemia Heart disease Hyperlipidemia [place] (myocardial infarction) ( [facility] V24, [facility] V28) 2022 Sleep apnea Cancer ([facility] V24, [facility] V28) COPD (chronic obstructive pu lmonary disease) ([facility] V24, [facility] V28) Glaucoma GERD (gastroesophageal reflux disease) Iron [...] Description 09/27/2024 10:15 AM EDT Office Visit [facility] [address] [place] [phone] Mansoor Lainez MD [address] [place] [phone] 10/27/2024 10:20 AM EDT Office Visit [facility] [address] [place] [phone] Yousif Warren MD [address] [place], [place] [phone] Health Maintenance Due Date Last Done Comments [...] Vaccines (2 of 2) 02/26/2024 01/01/2024, 09/07 Influenza Vaccine (#1) 2024 , 12/03/2022, 12/18/2021, Additional history exists Hypertension/CHF/CAD Annual BMP Blood Test 04/27/2025 04/27/2024, 04/27/2024, 10/24/2023 DTaP,Tdap,and Td Vaccines (3 - Td or Tdap) 12/01/2031 11/30/2021, 06/15/2008 Osteoporosis Screening (Bone Density Screening) 05/20/2034 05/20/2024 Pneumococcal Vaccine: 50+ Years Completed 08/19/2023, 02/07/2015, 11/12/2013 RSV Immunization Adult Patients Completed 01/01/2024 HIB [...] this topic Medical Devices Implanted Type Area Trimmer Sorter Device Identifier Shelf Expiration Date Model / Serial / Lot Hemostat Flour Collgn 1gm Avitene - Sn/A - [id number] Implanted:Qty: 1 on 04/13/2024 by Yousif Warren MD at [facility] Hemostasis Right: Breast CR BARD - DAVOL DIV [id number] / N/A / N/A Marker Tissue Breast Dual Trig 17x10 Ultrasound Enhanced - [id number] - [id number] Implanted:Qty: 1 on 03/17/2024 by Delta Guzman MD at [facility] Imaging Implants Right: Breast CR BARD PERIPHERAL VASCULAR [id number] 11/04/2026 [id number] / [id number] / Marker 18ga Magseed 7cm - [id number] - [id number] Implanted:Qty: 1 on 04/12/2024 at [facility] Imaging Implants Right: Breast [employer] [id number] 09/06/2025 [id number] / [id number] / [id number] Procedures Procedure Name Priority Date/Time Associated Diagnosis [...] [place] [facility] ONCOLOGY Course Number 1 Micro[facility]ision[facility] RADIATION ONCOLOGY Prescribed Fractional Dose 267 cGray [...] 8:53 AM EDT Physician Radiation Oncology RADIATION ONCOLO GY ORDERABLES Final Result Performing Organization Address City/[facility]/ZIP Co de Phone Number MOSAIQ RADIATION [...] 9:09 AM EDT Physician Radiation Oncology RADIATION ONCMARY BETH GY ORDERABLES Final Result Performing Organization Address [facility] Co de Phone Number MOSAIQ RADIATION ONCOLOGY [...] 9:17 AM EDT Physician Radiation Oncology RADIATION ONCOLO [...] 9:10 AM EDT Physician Radiation Oncology RADIATION ONCMARY [...] RADIATION ONCOLOGY 06/22/2024 11:3 3 AM EDT us Physician Radiation Oncology RADIATION ONCOLO GY ORDERABLES Final Result MOSAIQ RADIATION ONCOLOGY * BD Bone Density DXA [...] probability of hip fracture of 4.6%. Code 02393 -------- FINAL REPORT -------- Dictated By: Denzel Crockett Dictated Date: 05/20/2024 10:01 ET Assigned Physician: Denzel Crockett Reviewed and Electronically Signed By: Denzel Crockett Signed Date: 05/20/2024 10:04 ET Workstation ID: [id number] Transcribed By: Self Edit Transcribed Date: 05/20/2024 [...] density of the femurs bilaterally is 0.817 gm/we1vophi is 81% of that of young normals [...] probability of hip fracture of 4.6%. Code 34667 -------- FINAL REPORT -------- Dictated By: Denzel Crockett Dictated Date: 05/20/2024 10:01 ET Assigned Physician: Denzel Crockett Reviewed and Electronically Signed By: Denzel Crockett Signed Date: 05/20/2024 10:04 ET Workstation ID: [id number] Transcribed By: Self Edit Transcribed Date: 05/20/2024 10:02 ET Mansoor Lainez MD IMG DXA PROCEDURES Final Re sult from Last 3 Months or Most Recently Relevant to Health Maintenance Insurance [employer] MED[employer] Member Subscriber Plan / Payer (Ef fective 2011-Present) Name:Abby Dukes Relation to Subscriber:Self Name:Abby Dukes Payer ID:[id number] Group ID:[id number] Type:Not on file Address: [place] [address] [address] [id number] Advance Directives * Full Code - Default [...] currently active code status orders. Care Teams Appliance Assembler Relationship Specialty Start Date End Date Ivania Jang NP [address] [place] [phone] PCP - General Family Medicine 02/02/24
--- OUTSIDE RECORDS SUMMARY | 2024-09-13 13:15 | XMS_ITS | Clinical Summary ---
Author Organization [facility] Address [address] [place] [address] Phone Care Team Providers Care Floor Polisher Name Role Phone Ivania Jang ELY Primary Care Provider Allergies Active Allergy Reactions Criticality Noted Date Comments Psmy-Pius-Alxnwhjbpkmms e Nausea And Vomiting Medium 07/14/2014 Hydralazine [...] Visit [facility] [place] [address] [phone] Kevin Cage MD [address] [phone] Health Maintenance Due Date Last Done Comments Influenza Vaccine (#1) 2024 12/01/2023 Pneumococcal Vaccine: 50+ Years Completed 02/07/2015, 11/12/2013 Pneumococcal Vaccine: Peds (0 to 5 Years) and At-Risk Patients (6 to 49 Years) Discontinued 02/07/2015, 11/12/2013 Hepatitis B Vaccine Aged Out 12/18/2016 No longe r eligible based on patient's age to complete this topic [place] [address] ([id number]) [place] [phone] [facility] ([id number]) Care Teams Floor Polisher Relationship Specialty Start Date End Date Ivania Jang NP [address] [place] [address] PCP - General 11/14/21
== END 2024-09-13 12:43 | disposition home or self-care (01) ==
LOC: HO.CT 12:42
PROVIDERS: PCP Nurse Practitioner Family; Visit Provider Hospitalist
DX: R91.8 Other nonspecific abnormal finding of lung field (principal)
CPT/HCPCS: 71250

== ENCOUNTER → 2024-09-13 12:44 | Outpatient (BNV) | payer OTHER, SELFPAY | PROVIDERS: PCP Nurse Practitioner Family; Visit Provider Radiology Diagnostic Radiology | DX: J47.9 Bronchiectasis, uncomplicated (principal); J98.11 Atelectasis | CPT/HCPCS: 71250 ==

== ENCOUNTER 2024-12-28 09:48 | Outpatient (AMB) | payer OTHER, SELFPAY ==
[2024-12-28 09:53] VITALS: BP 118/50; PULSE 66; O2SAT 98; BMI 32.9
--- NOTE | 2024-12-28 09:53 | A.OFFVIS_ITS ---
Vital Signs 12/28/24 09:53 Height 5 ft 1 in Weight 174 lb 2.643 oz BMI 32.9 BP 118/50 L Blood Pressure Location Lt brachial Position Sitting Pulse 66 Pulse Source Pulse Oximeter Pulse Oximetry (%) 98 Oxygen Delivery Method Room Air Intake Visit Reasons: Asthma Accompanied by: Self / Same As Patient Allergies aspirin Allergy (Mild, Verified 12/28/24 09:56) Hives oxycodone Allergy (Mild, Verified 12/28/24 09:56) Rash GI Upset levofloxacin (From Levaquin) Allergy (Verified 12/28/24 09:56) rash, malaise, nausea- per H&P sertraline Allergy (Verified 12/28/24 09:56) N/V Diarrhea- per H&P Latex Agent Allergy (Mild, Uncoded 03/18/24 09:51) Hives Sulfa Drugs Allergy (Mild, Uncoded 03/18/24 09:51) Upset Stomach HPI Comments Details: The patient is a 79-year-old woman with a known history of pulmonary nodules, obstructive sleep apnea on CPAP in addition to having bariatric surgery. janina stout since I saw her she did develop covid 19 infection and was admitted to [facility] initially back in July 21. she was then readmitted back on August 09 with again a positive covid tennis and significant GI symptoms. She did not require any oxygen. We did review her previous CT scan of the chest done here back in February 2019 demonstrating numerous pulmonary nodules along with some bronchiectatic changes in some areas of atelectasis. She continues to have a cough in addition to some shortness of breath. Nrdv-ed-[id number] severity. No significant mucus production. At this point she needs to have a repeat CT scan of the chest. Will have her get 1 in 3 months with her follow-up. In regards to her CPAP the CPAP therapy continues to be Effective in beneficial. She does use her CPAP more than 4 hours a night. He uses a nasal mask. She does complaint of a dry mouth. We did prescribe her a chinstrap during the last visit but she did not know how to use it. Therefore she was instructed how to use it. She has some known bronchiectasis and her previous CT scan. We did talk about potentially consider bronchoscopy. She would like to hold off at this time. Will have blood work done to further address the bronchiectasis. In the meantime she continues use her CPAP. The CPAP therapy continues to be affecting beneficial. She does use it more than 4 hours a night. She still getting dryness of the mouth. Will try to request axis to rest med to try to adjust humidification. 12/23/2022 the patient is has a telehealth visit today. since we last spoke the patient did end up having substernal chest discomfort and was transferred over to [facility] where she was diagnosed with a non ST elevation FL. the patient underwent PCI with stent placement. Subsequently after that the patient did have further evaluation with Cardiology. She apparently has a 70% blockage another artery. She is going to likely have a stress test and then find out if she needs additional stent placements. From a respiratory status the patient is starting to have worsening cough. She has been exposed to family members COVID- 19 although she has not had any fevers or chills and has not tested herself as of yet. I did encourage her to do so. In the meantime she does not want to use prednisone because she was told not to use prednisone while dealing with a cardiac issue. The patient does have a cough which tends to be nonproductive in nature. She also complains of sinus congestion. The patient will go ahead and start her nebulizer treatments with budesonide to avoid prednisone. In addition to that will restart the azithromycin. I did look at her EKG and QT intervals were within normal limits in November. if the patient is no better she will call the office for further evaluation management. 04/25/2023 the patient is here for a pulmonary follow-up visit. Patient now is feeling better. Back in March she did have a flare-up and she was evaluated in office and was given antibiotics and prednisone. She is still using her nebulizer. Still using her Breo. still, having some chest congestion and wheezing. She is now off the prednisone. Will start her back on nebulized therapy. She can not take muscarinic antagonist because of history of glaucoma. The patient also has been using his CPAP. CPAP therapy has been affecting beneficial she does use it every night. She does use it for more than 4 hours a night. Will request supplies this time. 08/19/2023 the patient is here for a pulmonary follow-up visit. The patient is doing very well. Her asthma seems to be better controlled on the Breo 200. She has not had to use the budesonide which is reassuring. She also has albuterol that she has not required typically does not 2 times a week. She has concerned about the summer months because she has a hard time with breathing. She is going to monitor closely for the air pollution and ground ozone. The patient has been using her CPAP. The CPAP therapy has been affecting beneficial. She has using a fullface mask. Her AHI is down to 1.4. Her pressures are good. She is in 100% compliance. Will going to request additional supplies at this time. The patient returns 6 months or sooner if she has any worsening issues or any new concerns. 09/09/2024 the patient is here for a pulmonary follow-up visit. Overall she is doing worse from a respiratory status. She continues her respiratory medicines with partial effect. Worsening asthma symptoms and wheezing. Using MELINDA on a daily basis. Hard time tolerating Steroids. Not able to use anticholinergics. We will look into biologic therapy. She also continues her CPAP every night. CPAP therapy has been affecting beneficial. She does use it every night for more than 4 hours. She is already status with CPAP and she can not see herself without it. We also did look at a CT scan of the chest that she had back in 2020 demonstrating significant interstitial lung disease airspace disease in addition to pulmonary nodules. It will be reasonable to repeat a CT scan at this time to further evaluate those changes. 12/28/2024 the patient is here for pulmonary follow-up visit. Overall the patient is doing well. She continues to cough. She does feel like a tickle in her throat. Moderate severity. Typically worse at nighttime. The cough syrup does help her. Will try the also the [place] nights. In the meantime she is using her CPAP. CPAP therapy has been affecting beneficial she is using every night. AHI is down to 1.1. She does have issues with the water. I did adjust the machine and make sure that she is using the climate tubing. She is using a fullface mask. She is having some air leakage likely from the bottom of the mask but she is still acquiring good response to the PAP therapy so will continue that mask at this time. From an asthma standpoint she is doing well. Have give her some prednisone in case she runs into any difficulties. She will continue with the current respiratory therapy no need for biologics at this time. Her last imaging study was a CT scan from September 2024 demonstrating some scarring and some bronchiectasis likely from sequela of her previous disease. Right now she is stable will continue with the current therapy. The patient follow-up in 6 months if she has any issues prior she can always call further recommendations. [facility] Medical History (Updated 03/11/23 @ 13:46 by Bea Ortiz NP) CAD (coronary artery disease) Bradycardia Glaucoma Dizziness Osteopenia Hx of deep venous thrombosis Back pain Hypothyroid Diabetes Iron deficiency anemia Hx of gastroesophageal reflux (GERD) History of stomach cancer History of anxiety History of depression High cholesterol Hypertension Bronchiectasis COVID-19 Pulmonary nodules Asthma SANDRA on CPAP Surgical History History of thyroid surgery S/P laparoscopic-assisted sigmoidectomy History of partial gastrectomy Hx of colonoscopy Family History (Updated 12/23/19 @ 21:54 by Elliot Hammer MD) Father No problems noted. Social History Are you a primary memory care director to a significant other at home: No Do you presently have visiting nurse or other home services: No Patient Tobacco Use Status: Former Tobacco user Tobacco use type: Cigarette Years Smoked: 15 years Review of Systems Const Denies fatigue, Denies fever(s) and Denies night sweats ENT Denies change in voice, Denies dizziness, Denies lip swelling, Denies mouth pain, Reports nasal congestion, Reports nasal discharge, Reports sore throat and Denies tongue swelling Card Denies chest pain Resp Denies chest congestion, Reports cough, Denies hemoptysis, Denies excessive phlegm production, Denies pain on inspiration, Denies pain with cough and Re ports wheezing GI Denies abdominal pain Musc Denies no additional complaints Neuro Denies Neuro-related abnormal movements and Denies dizziness Psych Denies no additional complaints Endo Denies fatigue Harmeet/Lymph Denies easy bleeding and Denies lymphadenopathy Aller/Immun Denies lip swelling, Denies tongue swelling and Reports wheezing Physical Exam Vital Signs: Last Vital Signs Pulse 66 12/28/24 09:53 BP 118/50 L 12/28/24 09:53 Pulse Ox 98 12/28/24 09:53 Oxygen Delivery Method Room Air 12/28/24 09:53 BMI result Body Mass Index 32.9 Const General: alert Neck Neck: Yes normal visual inspection, Yes full ROM and Yes no lymphadenopathy Chest Chest palpation & inspection: normal inspection of the chest Resp Auscultation: no rhonchi, no wheezes and diminished lung sounds Cardio Rate: regular rate Rhythm: regular rhythm Heart sounds: Murmur heart sound present GI Palpation (GI): Soft to palpation and nontender Auscultation: normal bowel sounds Skin General skin exam: rashes and/or lesions noted Assessment & Plan Assessment & Plan (1) Bronchiectasis: Code(s): J47.9 - Bronchiectasis, uncomplicated Category: Medical Qualifiers: Bronchiectasis type: with acute exacerbation Qualified Code(s): J47.1 - Bronchiectasis with (acute) exacerbation (2) Pulmonary nodules: Code(s): R91.8 - Other nonspecific abnormal finding of lung field Category: Medical (3) Asthma: Code(s): J45.909 - Unspecified asthma, uncomplicated Category: Medical Qualifiers: Asthma complication type: uncomplicated Asthma persistence: persistent Asthma severity: moderate Qualified Code(s): J45.40 - Moderate persistent asthma, uncomplicated (4) SANDRA on CPAP: Code(s): G47.33 - Obstructive sleep apnea (adult) (pediatric); Z99.89 - Dependence on other enabling machines and devices Category: Medical (5) CAD (coronary artery disease): Code(s): I25.10 - Atherosclerotic heart disease of ken[place] coronary artery without angina pectoris Category: Medical Qualifiers: Associated angina: without angina Coronary Disease-Associated Artery/Lesion type: ken[place]ze artery [place] vs. transplanted heart: kenaitze heart Qualified Code(s): I25.10 - Atherosclerotic heart disease of ken[place]ze coronary artery without angina pectoris Plan Continue APAP, adjusted pressures 6-14, F20 med mask Continue CPT with nebulized therapy and Acapella valve. Consider percussion vest if worsens Continue Breo 200, No UNIQUE/LAMA due to glaucoma short-acting beta agonist as needed Continue Singulair cough medicine Follow-up in 6 months Medications: New benzonatate 200 mg PO BID 30 days PRN 30 caps 5RF cough benzonatate 200 mg PO BID PRN 30 caps 5RF cough 30 days prednisone PO daily; Take 2 tabs daily x 5 days, then 1 tablet daily x 5 days 15 tabs 0RF 10 days Refilled codeine-guaifenesin 10-100 mg/5 mL 10 mL PO Q6H PRN 300 mL 0RF cough 10 days Coding Level of Care Code Est Pt Level 4 (85454) Complex EM visit Add On G2211 Diagnoses Bronchiectasis with acute exacerbation J47.1 Bronchiectasis type: with acute exacerbation Pulmonary nodules R91.8 Moderate persistent asthma without complication J45.40 Asthma complication type: uncomplicated Asthma persistence: persistent Asthma severity: moderate SANDRA on CPAP G47.33; Z99.89 Coronary artery disease involving kenaitze coronary artery of kenaitze heart without angina pectoris I25.10 Associated angina: without angina Coronary Disease-Associated Artery/Lesion type: ken[place]ze artery [place] vs. transplanted heart: kenaitze heart Time Spent (min) 17
--- OUTSIDE RECORDS SUMMARY | 2024-12-28 11:12 | XMS_ITS | Encounter Summary ---
Author Organization [facility] Address [address] [place] [address] Care Team Providers Care Line Server Name Role Phone Yumiko Hammer BATCH HEAT TREAT OPERATOR Primary Care Provider Un available Sukumar Mills MD Primary Care Provide r Unavailable Yumiko Hammer BATCH HEAT TREAT OPERATOR Primary Care Provider Un available Lola Andrews Primary Care Provider Unavailab le Encounter Details Date Type Department Care Team Description 12/04/2018 Orders Only Medical Records [address] [place] [address] Abstract, Provider Social History Tobacco Use Types Packs/Day Years Used Date Smoking Tobacco: Never Smokeless Tobacco: Never Alcohol Use Standard Drinks/Week Comments No 0 (1 standard drink = 0.6 oz pur e alcohol) Intimate Partner Violence Answer Date R ecorded Within the last year, have y ou been afraid of your partner or ex-partner? No 11/09/2019 Within the last year, have y ou been humiliated or emotionally abused in other ways by your partner or ex-partner? No Within the last year, have y ou been kicked, hit, slapped, or otherwise physically hurt by your partner or ex-partner? No 11/09/2019 Within the last year, have y ou been raped or forced to have any kind of sexual activity by your partner or ex-partner? No 11/09/2019 Sex Assigned at Date Recorded Not on file Job Start Date Occupation Industry Not on file Not on file Not on file documented as of this encounter Plan of Treatment Not on file documented as of this encounter Procedures Procedure Name Priority Date/Time Associated Diagnosis Comments OUTSIDE LAB Routine 12/03/2018 documented in this encounter Results * OUTSIDE LAB (12/03/2018) Elliot Hammer MD LAB documented in this encounter Visit Diagnoses Not on filedocumented in this encounter Care Teams Line Server Relationship Specialty Start Date End Date Yumiko Hammer NP PCP - General Internal Medicine 03/13/18 Sukumar Mills MD PCP - General Internal Medicine 01/12/19 1 03/21/18 Yumiko Hammer NP PCP - General Internal Medicine 01/20/19 Lola Andrews PCP - General Geriatrics 05/19/19 documented as of this encounter
--- OUTSIDE RECORDS SUMMARY | 2024-12-28 11:12 | XMS_ITS | Encounter Summary ---
Author Organization [facility] Address [address] [place] [address] Care Team Providers Care Claim Taker Name Role Phone Lola Andrews Primary Care Provider Unavailab le Reason for Visit * Reason Onset Date Comments Note, Other 02/28/2022 Encounter Details Date Type Department Care Team Description 02/28/2022 Telephone Pulmonology - [place] [address] [facility] [address] [place] [id number] Elliot Hammer MD Note, Other Social History Tobacco Use Types Packs/Day Years [...] on file documented as of this encounter Miscellaneous Notes * Telephone Encounter - Lori Carty - 02/28/2022 2:51 PM EST Spoke with patient in regards to fax for [facility] for the supplies of Cpap. Patient states that she now goes to [facility] with Dr. Hammer. So I forward the fax to the Hospital. And state to the patient that if any issues to call that office. documented in this encounter Plan of Treatment Not on file documented as of this encounter Visit Diagnoses Not on filedocumented in this encounter Care Teams Claim Taker Relationship Specialty Start Date End Date Lola Andrews PCP - General Geriatrics 05/19/19 documented as of this encounter
--- OUTSIDE RECORDS SUMMARY | 2024-12-28 11:12 | XMS_ITS | Clinical Summary ---
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 11/08/2024 History of gastrointestinal stromal tumor 2024 Exacerbation of moderate persistent asthma 05/11 Carcinoma breast - lower, outer quadrant 025 History of deep vein thrombosis 04/24/2023 Overview (04/24/2023): in 07/2014; provoked from surgery [...] 11/13/2021 Hypertensive renal disease 05/05/2020 0 11/13/2021 Encounters Date Type Department Care Team Description 11/09/2024 10:20 AM EDT Office Visit [facility] [address] [address] Kevin Cage MD Stage 3a chronic kidney disease (HCC) (Primary Dx); Proteinuria, not otherwise specified; Hypertension; History of deep vein thrombosis; Acquired complex renal cyst; Chronic obstructive pulmonary disease, not otherwise specified (HCC) 10/27/2024 Orders Only [facility] [address] [address] Kevin Cage MD 10/27/2024 Orders Only [facility] [address] [address] Kevin Cage MD Stage 3a chronic kidney disease (HCC); Proteinuria, not otherwise specified; Osteoporosis; Hypertension; Chronic obstructive pulmonary disease, not otherwise specified (HCC); Deep venous thrombosis of lower extremity <Unspecified side> from Last 3 Months Immunizations Immunization Administration Dates Next Due DT [...] Reading Time Taken Comments Blood Pressure 138/60 11/09/2024 10:17 AM EDT Pulse 72 04/29/2024 10:16 AM EST Temperature - - Respiratory Rate - - Oxygen Saturation 98% 11/09/2024 10:17 AM EDT Inhaled Oxygen Concentration - - Weight 78.9 kg (174 lb) 11/09/2024 10:17 AM EDT Height 152.4 cm (5') 04/29/2024 10:16 AM EST Body Mass Index 33.98 04/29/2024 10:16 AM EST Plan of Treatment Upcoming Encounters Date Type Department Care Team (Late st Contact Info) Description 05/09/2025 10:40 AM EST [facility] Visit [facility] [address] [phone] Kevin Cage MD [address] [phone] Health Maintenance Due Date Last Done Comments Influenza Vaccine (#1) 2024 12/01/2023 Pneumococcal Vaccine: 50+ Years Completed 02/07/2015, 11/12/2013 Pneumococcal Vaccine: Peds (0 to 5 Years) and At-Risk Patients (6 to 49 Years) Discontinued 02/07/2015, 11/12/2013 Hepatitis B Vaccine Aged Out 12/18/2016 No longe r eligible based on patient's age to complete this topic Procedures Procedure Name Priority Date/Time Associated Diagnosis Comments PTH, INTACT Routine 10/27/2024 12:23 PM EDT MAGNESIUM Routine 10/27/2024 12:23 PM EDT PHOSPHATE ( PHOSPHORUS) Routine 10/27/2024 12:23 PM EDT URIC ACID Routine 10/27/2024 12:23 PM EDT VITAMIN D 25 HYDROXY Routine 10/27/2024 12:23 PM EDT PROTEIN / CREATININE RATIO, URINE Routine 10/27/2024 12:23 PM EDT COMPREHENSIVE METABOLIC PANEL Routine 10/27/2024 12:23 PM EDT CBC AND DIFFERENTIAL Routine 10/27/2024 12:23 PM EDT from Last 3 Months Results * Protein, Total, Random Urine w/Creatinine (Protein/Creat Ratio) (10/27/2024 12:23 PM EDT) Creatinine, Ur 42.4 Not Estab. mg/dL [facility] Protein, Ur 7.2 Not Estab. mg/dL [facility] Urine Protein/Creatin ine Ratio 170 0 - 200 mg/g creat [facility] 10/27/2024 12:2 3 PM EDT 10/27/2024 us Kevin Cage MD LAB URINE ORDERABLES Final Re sult [facility] [address] [place] [address] * Vitamin D 25 Hydroxy (10/27/2024 12:23 PM EDT) Vitamin D, 25-OH, Total 49.9 30.0 - 100.0 ng/mL [facility] Comment: Vitamin D deficiency has been defined by the [place] of Medicine and an Endocrine Society practice guideline as a level of serum 25-OH vitamin D less than 20 ng/mL (1,2). The Endocrine Society went on to further define vitamin D insufficiency as a level between 21 and 29 ng/mL (2). 1. IOM ([place] of Medicine). 2010. Dietary reference intakes for calcium and D. [place]: The National Academies Press. 2. Josiah MF, Darrian UPTON, Jazmyn KAUR, et al. Evaluation, treatment, and prevention of vitamin D deficiency: an Endocrine Society clinical practice guideline. JCEM. 2010; 96(7):1911-30. 10/27/2024 12:2 3 PM EDT 10/27/2024 us Kevin Cage MD LAB BLOOD ORDERABLES Final Re sult [facility] [address] [place] [address] * CBC and Differential (10/27/2024 12:23 PM EDT) WBC 9.2 3.4 - 10.8 x10E3/uL [facility] RBC 4.11 3.77 - 5.28 x10E6/uL [facility] Hemoglobin 12.6 11.1 - 15.9 g/dL [facility] Hematocrit 37.7 34.0 - 46.6 % [facility] MCV 92 79 - 97 fL [facility] MCH 30.7 26.6 - 33.0 pg [facility] MCHC 33.4 31.5 - 35.7 g/dL [facility] RDW 13.2 11.7 - 15.4 % [facility] Platelets 274 150 - 450 x10E3/uL [facility] Neutrophils Relative 65 Not Estab. % [facility] Lymphocytes Relative 25 Not Estab. % [facility] Monocytes 8 Not Estab. % [facility] Eosinophils Relative 1 Not Estab. % [facility] Basophils Relative 1 Not Estab. % [facility] Neutrophils Absolute 6.0 1.4 - 7.0 x10E3/uL [facility] Lymphocytes Absolute 2.3 0.7 - 3.1 x10E3/uL [facility] Monocytes Absolute 0.7 0.1 - 0.9 x10E3/uL [facility] Eosinophils Absolute 0.1 0.0 - 0.4 x10E3/uL [facility] Basophils Absolute 0.1 0.0 - 0.2 x10E3/uL [facility] Immature Granulocytes 0 Not Estab. % [facility] Immature Grans (Absolute) 0.0 0.0 - 0.1 x10E3/uL [facility] 10/27/2024 12:2 3 PM EDT 10/27/2024 us Kevin Cage MD LAB BLOOD ORDERABLES Final Re sult [facility] [address] [place] [address] * Uric Acid (10/27/2024 12:23 PM EDT) Uric Acid 6.0 3.1 - 7.9 mg/dL [facility] Comment:Therapeutic target f or gout patients: <6.0 10/27/2024 12:2 3 PM EDT 10/27/2024 us Kevin Cage MD LAB BLOOD ORDERABLES Final Re sult Performing Organization Address [facility] Co de Phone Number [facility] [address] [place] [address] * Phosphorus (10/27/2024 12:23 PM EDT) Phosphorus 3.3 3.0 - 4.3 mg/dL [facility] 10/27/2024 12:2 3 PM EDT 10/27/2024 us Kevin Cage MD LAB BLOOD ORDERABLES Final Re sult Performing Organization Address [facility] de Phone Number [facility] [address] [place] [address] * (ABNORMAL) PTH, Intact (10/27/2024 12:23 PM EDT) PTH 75(H) 15 - 65 pg/mL [facility] 10/27/2024 12:2 3 PM EDT 10/27/2024 us Kevin Cage MD LAB BLOOD ORDERABLES Final Re sult Performing Organization Address [facility] de Phone Number [facility] [address] [place] [address] * Magnesium (10/27/2024 12:23 PM EDT) Magnesium 1.9 1.6 - 2.3 mg/dL [facility] 10/27/2024 12:2 3 PM EDT 10/27/2024 us Kevin Cage MD LAB BLOOD ORDERABLES Final Re sult [facility] [address] [place] [address] * (ABNORMAL) Comprehensive Metabolic Panel (10/27/2024 12:23 PM EDT) Pathologist [facility] Glucose 86 70 - 99 mg/dL [facility] BUN 26 8 - 27 mg/dL [facility] Creatinine 0.98 0.57 - 1.00 mg/dL [facility] eGFR CKD-EPI CR 2020 59(L) >59 mL/min/1.7 3 [facility] BUN/Creatinine Ratio 27 12 - 28 [facility] Sodium 141 134 - 144 mmol/L [facility] Potassium 4.6 3.5 - 5.2 mmol/L [facility] Chloride 104 96 - 106 mmol/L [facility] Bicarbonate (CO2) 22 20 - 29 mmol/L [facility] Calcium 9.6 8.7 - 10.3 mg/dL [facility] Total Protein 7.6 6.0 - 8.5 g/dL [facility] Albumin 4.1 3.8 - 4.8 g/dL [facility] Globulin 3.5 1.5 - 4.5 g/dL [facility] Total Bilirubin 0.3 0.0 - 1.2 mg/dL [facility] Alkaline Phosphatase 253(H) 44 - 121 IU/L [facility] AST (SGOT) 42(H) 0 - 40 IU/L [facility] ALT (SGPT) 43(H) 0 - 32 IU/L [facility] 10/27/2024 12:2 3 PM EDT 10/27/2024 us Keivn Cage MD LAB BLOOD ORDERABLES Final Re sult [facility] [address] [place] [address] from Last 3 Months Insurance * Guarantor: Abby Dukes Account Type Relation to Patient Date of Phone Billing Address Personal/Family Self 1945 [address] ([id number]) [place] [address] ([id number]) Care Teams Stacker Operator Relationship Specialty Start Date End Date Ivania Jang NP [address] [place] [id number] PCP - General 11/14/21
--- OUTSIDE RECORDS SUMMARY | 2024-12-28 11:12 | XMS_ITS | Encounter Summary ---
Author Organization [facility] Address [address] [place] [address] Care Team Providers Care Server Support Technician Name Role Phone Yumiko Hammer DUB ROOM ENGINEER Primary Care Provider Un available Sukumar Mills MD Primary Care Provide r Unavailable Yumiko Hammer DUB ROOM ENGINEER Primary Care Provider Un available Lola Andrews Primary Care Provider Unavailab le Encounter Details Date Type Department Care Team Description 01/10/2019 Hospital Medical Records [address] [place] [address] Teo Pinedo MD [address] [place] [phone] Social History Tobacco Use Types Packs/Day Years [...] on filedocumented in this encounter Care Teams Server Support Technician Relationship Specialty Start Date End Date Yumiko Hammer NP PCP - General Internal Medicine 03/13/18 Sukumar Mills MD PCP - General Internal Medicine 01/12/19 1 03/21/18 Yumiko Hammer NP PCP - General Internal Medicine 01/20/19 Lola Andrews PCP - General Geriatrics 05/19/19 documented as of this encounter
--- OUTSIDE RECORDS SUMMARY | 2024-12-28 11:12 | XMS_ITS | Encounter Summary ---
Author Organization [facility] Address [address] [place] [address] Care Team Providers Care Staff Physical Therapist Name Role Phone Saira Henderson MD Primary Care Provider Unavailabl e Yumiko Hammer DOWEL POINTER Primary Care Provider Un available Sukumar Mills MD Primary Care Provide r Unavailable Yumiko Hammer DOWEL POINTER Primary Care Provider Un available Lola Andrews Primary Care Provider Unavailab le Encounter Details Date Type Department Care Team Description 07/15/2014 Release of Information Medical Records [address] [place] [id number] Abstract, Provider Social History Tobacco Use Types Packs/Day Years Used Date Smoking Tobacco: Never Assessed Alcohol Use Standard Drinks/Week Comments No 0 [...] on filedocumented in this encounter Care Teams Staff Physical Therapist Relationship Specialty Start Date End Date Saira Henderson MD PCP - General Internal Medicine 06/13/14 03/12/18 Yumiko Hammer NP PCP - General Internal Medicine 03/13/18 Sukumar Mills MD PCP - General Internal Medicine 01/12/19 1 03/21/18 Yumiko Hammer NP PCP - General Internal Medicine 01/20/19 Lola Andrews PCP - General Geriatrics 05/19/19 documented as of this encounter
--- OUTSIDE RECORDS SUMMARY | 2024-12-28 11:12 | XMS_ITS | Data Portability ---
Author Organization [facility] Address [address] [address] Assessment Encounter Date Assessment Date Assessment LastModified [...] copy of the audiogram, a list of [facility] hearing aid providers, and medical clearance [...] Sensorine ural hearing loss of bilateral ears 339001093 Active 2020 Sensorine ural hearing loss, bilateral ; Note: Date Diagnosed : 06/20/2020 1:05 PM (H90.3) Not Available [facility] 4 03:16:18 Impacted cerumen in left ear 77987337572 21767 Active 2020 Impacted cerumen, left ear; Note: Date Diagnosed : 06/20/2020 12:41 PM (H61.22) Not Available [facility] 4 03:16:18 Jaw pain 818547351 Active 2020 Jaw pain; Note: Date Diagnosed : 06/20/2020 12:41 PM (R68.84) Not Available [facility] 4 03:16:19 Dizziness and giddiness 635104105 Active 2020 Dizziness and giddiness ; Note: Date Diagnosed : 06/20/2020 1:05 PM (R42) Not Available [facility] 4 03:16:18 Localized enlarged lymph nodes 665843914 Active 2023 Localized enlarged lymph nodes; Note: Date Diagnosed : 05/26/2023 11:39 AM (R59.0) Not Available [facility] 4 03:16:18 Impacted cerumen of bilateral ears 44385565777 56161 Active 2023 Impacted cerumen, bilateral ; Note: Date Diagnosed : 05/26/2023 11:39 AM (H61.23) Not Available [facility] 4 03:16:19 Leukocyto sis 256608660 Active 2023 Elevated white blood cell count, unspecifi ed; Note: Date Diagnosed : 05/26/2023 4:52 PM (D72.829) Not Available [facility] 03:16:19 Mass of neck 719456026 Active 2023 Localized swelling, mass and lump, neck; Note: Date Diagnosed : 06/03/2023 3:20 PM (R22.1) Not Available [facility] 03:16:18 Neck swelling 309413464 Active 2023 Localized swelling, mass and lump, neck; Note: Date Diagnosed : 06/03/2023 3:20 PM (R22.1) Not Available [facility] 03:16:18 Dizziness 891718761 Active 2023 SREEKANTH AGUDELO MD [address] [facility],[place] [address], [place], [address] , [place] - [facility] 14:34:01 Problem Notes None recorded. Procedures Surgical History Date Name Laterality Status Provider Name and Address Organization Details Recorded Time 10/07/2023 Comp Audio with Tymps - 04378 & 13277 completed JENA TABARES [address] [facility],[place] [address], [place], [address], [facility] - [facility] 10/07/2023 14:05:26 Imaging Results None recorded. [...] 50 mg tablet active Medicati on ID: [id number] B rand Name: tramadol Send Method: E-Prescr [...] for nebulizat ion active Medicati on ID: 577718 B rand Name: budesoni de Send Method: [...] 25 mg tablet active Medicati on ID: 249968 B rand Name: hydrochl orothiaz salvador Send Method: E-Prescr ibed Sub s Allowed: subs OK Medic ationGen ericName : hydrochl orothiaz salvador Not Available Not Available Not Available zolpidem 10 mg tablet active Medicati on ID: 998985 B rand Name: zolpidem Send Method: E-Prescr ibed Sub s Allowed: subs OK Medic ationGen ericName : zolpidem Not Available Not Available Not Available albuterol sulfate HFA 90 mcg/actua tion aerosol inhaler active Medicati on ID: 448224 B rand Name: albutero l sulfate Send Method: E-Prescr ibed Sub s Allowed: subs OK Medic ationGen ericName : albutero l sulfate Not Available Not Available Not Available ferrous sulfate 325 mg (65 mg iron) tablet,de layed release active Medicati on ID: 809776 B rand Name: ferrous sulfate Send Method: E-Prescr ibed Sub s Allowed: subs OK Medic ationGen ericName : ferrous sulfate Not Available Not Available Not Available cefdinir 300 mg capsule TAKE ONE CAPSULE BY MOUTH EVERY 12 HOURS 10/06 completed Not Available Not Available Not Available losartan 100 mg tablet active Medicati on ID: [id number] B rand Name: losartan Send Method: E-Prescr ibed Sub s Allowed: subs OK Medic ationGen ericName : losartan Not Available Not Available Not Available fluticaso ne propionat e 50 mcg/actua tion nasal spray,yisel pension active Medicati on ID: 551679 B rand Name: fluticas one propiona te [...] 5 mg tablet active Medicati on ID: 904610 B rand Name: rosuvast atin Sen d Method: E-Prescr ibed Sub s Allowed: subs OK Medic ationGen ericName : rosuvast atin Not Available Not Available Not Available metoprolo l tartrate 25 mg tablet active Medicati on ID: 585999 B rand Name: metoprol ol tartrate Send [...] Updated DateTime 10/07/2023 157.48 cm 32 kg/m2 10982.66 g Margaret Darling [place] - [facility] 10/07/2023 13:52:23 Social History None recorded. [...] Diagnosis SNOMED-CT Code Diagnosis ICD10 Code Diagnosis IMO Codes Diagnosis Note 24362 SREEKANTH AGUDELO MD [facility] of [address] [address] 10/07/2023 13:46:57 10/07/2023 14:34:56 Sensorineural hearing loss of bilateral ears [id number] H90.3 Audiologic al evaluation results: 10/07/2023 Right ear: Normal sloping to a mild to moderate sensorineu ral hearing loss with excellent word recognitio n. Left ear: Normal sloping to a mild to moderate sensorineu ral hearing loss with excellent word recognitio n. Tympanomet ry: Right Ear:Type A Left Ear:Type A Dizziness and giddiness 708298414 R42 Dizziness 177286161 R42 Health Concerns Section Related Observation LastModified by Organization Detai ls LastModified Time None Recorded Concern Status LastModified by Organization Details LastModified Time None Recorded Advance Directives Directive None Recorded Payers Insurance Date Sequence Insurance Name Policy Number Policy Rolle Covered Member ID Rolle Member ID Guarantor Name 10/13/2023 1 [facility] - DOS ON OR AFTER 2022 - MEDICARE ADVANTAGE [place] (MEDICARE REPLACEMENT/ADV ANTAGE - PPO) Abby Dukes [id number] Abby Dukes Notes Date Note Type Note Provider Name and Address Organization Details Recorded Time 10/07/2023 text/html ROS as noted in the HPI hearing losslast seen 07/07/[address] Wei for left postauricular swelling that resolved with course of abxpt feels decreased hearing, requests wax cleaning, last time was about 6 months ago+no prior ear surgerygets imbalance when standing from sitting or from laying down. improves if she gets up slow SREEKANTH AGUDELO MD [address] [place] [address], [place], [address], [place] - [facility] 10/07/2023 14:34:19 OBGyn Episode No OBEpisode recorded.
--- OUTSIDE RECORDS SUMMARY | 2024-12-28 11:12 | XMS_ITS | Encounter Summary ---
Author Organization [facility] Address [address] [place] [address] Care Team Providers Care Wardrobe Supervisor Name Role Phone Yumiko Hammer COMMERCIAL DRONE SOFTWARE DEVELOPER Primary Care Provider Un available Sukumar Mills MD Primary Care Provide r Unavailable Yumiko Hammer COMMERCIAL DRONE SOFTWARE DEVELOPER Primary Care Provider Un available Lola Anrdews Primary Care Provider Unavailab le Encounter Details Date Type Department Care Team Description 10/02/2018 Systems Trainer Report Medical Records [address] [place] [address] Stanley Gloria MD Social History Tobacco Use Types Packs/Day Years [...] on filedocumented in this encounter Care Teams Wardrobe Supervisor Relationship Specialty Start Date End Date Yumiko Hammer NP PCP - General Internal Medicine 03/13/18 Sukumar Mills MD PCP - General Internal Medicine 01/12/19 1 03/21/18 Yumiko Hammer NP PCP - General Internal Medicine 01/20/19 Lola Andrews PCP - General Geriatrics 05/19/19 documented as of this encounter
--- OUTSIDE RECORDS SUMMARY | 2024-12-28 11:12 | XMS_ITS | Encounter Summary ---
Author Organization [facility] Address [address] [place] [address] Care Team Providers Care Phlebotomy Instructor Name Role Phone Lola Andrews Primary Care Provider Cristina le Encounter Details Date Type Department Care Team Description 09/16/2022 Hospital Medical Records [address] [place] [address] [facility] Social History Tobacco Use Types Packs/Day Years [...] Name Priority Date/Time Associated Diagnosis Comments OUTSIDE ECHO Routine 09/16/2022 documented in this encounter Results * OUTSIDE ECHO (09/16/2022) Provider Default CARDIOLOGY [facility] documented in this encounter Visit Diagnoses Not on filedocumented in this encounter Care Teams Phlebotomy Instructor Relationship Specialty Start Date End Date Lola Andrews PCP - General Geriatrics 05/19/19 documented as of this encounter
--- OUTSIDE RECORDS SUMMARY | 2024-12-28 11:12 | XMS_ITS | Encounter Summary ---
Author Organization [facility] Address [address] [place] [address] Care Team Providers Care Hearing Aid Repairer Name Role Phone Saira Henderson MD Primary Care Provider Unavailabl e Yumiko Hammer BUSINESS TRANSFORMATION ANALYST Primary Care Provider Un available Sukumar Mills MD Primary Care Provide r Unavailable Yumiko Hammer BUSINESS TRANSFORMATION ANALYST Primary Care Provider Un available Lola Andrews Primary Care Provider Unavailab le Encounter Details Date Type Department Care Team Description 09/08/2014 Litigation Services Manager Report Medical Records [address] [place] [address] Miranda Moran MD [address] [place] [address] [address] [place] [address] Social History Tobacco Use Types Packs/Day Years [...] on filedocumented in this encounter Care Teams Hearing Aid Repairer Relationship Specialty Start Date End Date Saira [...]
--- OUTSIDE RECORDS SUMMARY | 2024-12-28 11:12 | XMS_ITS | Encounter Summary ---
Author Organization [facility] Address [address] [place] [address] Care Team Providers Care Social Service Technician Name Role Phone Yumiko Hammer MARKETING AND COMMUNICATIONS OFFICER Primary Care Provider Un available Sukumar Mills MD Primary Care Provide r Unavailable Yuimko Hammer MARKETING AND COMMUNICATIONS OFFICER Primary Care Provider Un available Lola Andrews Primary Care Provider Unavailab le Reason for Visit * Reason Comments E-prescribe Rx Request Encounter Details Date Type Department Care Team Description 03/13/2018 Refill Pulmonology - [place] [address] [facility] [address] [place] [phone] Elliot Hammer MD E-prescribe Rx Request Social History Tobacco Use Types Packs/Day Years [...] encounter Miscellaneous Notes * Telephone Encounter - Alex Swisher - 03/13/2018 3:29 PM EST Patient would like script to be: E-PRESCRIBED/FAXED TO PHARMACY WHEN WAS THE PATIENT'S LAST APPOINTMENT WITH THE PRESCRIBING PROVIDER? 04/21/18 Does patient have an upcoming appointment? Yes 03/13/18 (THE MEDICATION REQUESTED IS ON THE MED LIST ABOVE) All of the medications requested were on the CURRENT MEDS list Did you check the Pharmacy information above?: YES Patient wants: 90 -day supply Is this a mail order prescription request ? NO Patients current insurance carrier is: Payor: [facility] MCR / Plan: [employer] $0 [facility] [id number] / Product Type: [employer] [id number] documented in this encounter Plan of Treatment Not on file documented as of this encounter Visit Diagnoses Not on filedocumented in this encounter Care Teams Social Service Technician Relationship Specialty Start Date End Date Yumiko Hammer NP PCP - General Internal Medicine 03/13/18 Sukumar Mills MD PCP - General Internal Medicine 01/12/19 1 03/21/18 Yumiko Hammer NP PCP - General Internal Medicine 01/20/19 Lola Andrwes PCP - General Geriatrics 05/19/19 documented as of this encounter
--- OUTSIDE RECORDS SUMMARY | 2024-12-28 11:12 | XMS_ITS | Encounter Summary ---
Author Organization [facility] Address [address] [place] [address] Care Team Providers Care Expansion Joint Finisher Name Role Phone Yumiko Hammer [employer] Primary Care Provider Un available Sukumar Mills MD Primary Care Provide r Unavailable Yumiko Hammer [employer] Primary Care Provider Un available Lola Andrews Primary Care Provider Unavailab le Reason for Visit * Reason Onset Date Comments DME Request 03/20/2018 Encounter Details Date Type Department Care Team Description 03/20/2018 Telephone Pulmonology - [facility] [address] [facility] [address] [place] [id number] Elliot Hammer MD DME Request Social History Tobacco Use Types Packs/Day [...] encounter Miscellaneous Notes * Telephone Encounter - Tabby Ruiz M.A. - 03/23/2018 8:57 AM EST Faxed to the correct number below. * Telephone Encounter - Christine Lacy - 03/20/2018 4:17 PM EST Unique from [facility] called to say the [employer] order was faxed to a wrong number. The correct fax [phone]. documented in this encounter Plan of Treatment Not on file documented as of this encounter Visit Diagnoses Not on filedocumented in this encounter Care Teams Expansion Joint Finisher Relationship Specialty Start Date End Date Yumiko Hammer NP PCP - General Internal Medicine 03/13/18 Sukumar Mills MD PCP - General Internal Medicine 01/12/19 1 03/21/18 Yumiko Hammer NP PCP - General Internal Medicine 01/20/19 Lola Andrews PCP - General Geriatrics 05/19/19 documented as of this encounter
== END 2024-12-28 10:18 | disposition home or self-care (01) ==
LOC: HO.HPS 09:49
PROVIDERS: PCP Nurse Practitioner Family; Visit Provider Hospitalist
DX: J47.1 Bronchiectasis with (acute) exacerbation (principal); R91.8 Other nonspecific abnormal finding of lung field; J45.40 Moderate persistent asthma, uncomplicated; G47.33 Obstructive sleep apnea (adult) (pediatric); Z99.89 Dependence on other enabling machines and devices; I25.10 Atherosclerotic heart disease of native coronary artery without angina pectoris
CPT/HCPCS: 99214; G2211

== ENCOUNTER → 2024-12-28 09:48 | Outpatient (BNVA) | payer OTHER, SELFPAY | PROVIDERS: PCP Nurse Practitioner Family; Visit Provider Hospitalist | DX: J47.1 Bronchiectasis with (acute) exacerbation (principal); R91.8 Other nonspecific abnormal finding of lung field; J45.40 Moderate persistent asthma, uncomplicated; G47.33 Obstructive sleep apnea (adult) (pediatric); Z99.89 Dependence on other enabling machines and devices; I25.10 Atherosclerotic heart disease of native coronary artery without angina pectoris | CPT/HCPCS: 99212 ==